=== PATIENT | male | born 1935 | race Two or more races ===

== ENCOUNTER → 2016-09-02 | Outpatient (CLI) | payer MEDICARE, BC ==
[2016-09-02 10:02] LABS: ALANINE AMINOTRANSFERASE 38 U/L (21-72); ALBUMIN 4.2 g/dL (3.5-5.0); ALKALINE PHOSPHATASE 70 U/L (38-126); ANION GAP 14 (5-19); ASPARTATE AMINO TRANSFERASE 17 U/L (17-59); BILIRUBIN,DIRECT 0.2 mg/dL (0.0-0.4); BILIRUBIN,TOTAL 1.3 mg/dL (0.2-1.3); BLOOD UREA NITROGEN 47 mg/dL (7-20); CARBON DIOXIDE 28 mmol/L (22-30); CHLORIDE 103 mmol/L (98-107); CHOLESTEROL 114.97 mg/dL (0-200); CREATININE RESULT 2.24 mg/dL (0.52-1.25); Direct HDL 29 mg/dL (>40); GLUCOSE 139 mg/dL (75-110); POTASSIUM 4.5 mmol/L (3.6-5.0); TOTAL PROTEIN 6.6 g/dL (6.3-8.2); TRIGLYCERIDES 139 mg/dL (<150)
[2016-09-02 10:13] LABS: DIRECT LDL 54 mg/dL (<100)
== END ==
LOC: OD 08:38
PROVIDERS: ATTEND Internal Medicine
DX: E78.4 Other hyperlipidemia (principal); I25.10 Atherosclerotic heart disease of native coronary artery without angina pectoris; I50.22 Chronic systolic (congestive) heart failure; Z79.899 Other long term (current) drug therapy; R06.02 Shortness of breath; I10 Essential (primary) hypertension; N19 Unspecified kidney failure; Z95.1 Presence of aortocoronary bypass graft; Z95.810 Presence of automatic (implantable) cardiac defibrillator; I25.2 Old myocardial infarction
CPT/HCPCS: 36415; 80053; 80061

== ENCOUNTER → 2016-12-17 | Outpatient (CLI) | payer MEDICARE, BC ==
[2016-12-17 09:37] LABS: HEMATOCRIT 45.9 % (37.9-51.0); HEMOGLOBIN 14.9 g/dL (13.5-17.0); HGB HCT DIFFERENCE -1.2; MEAN CORPUSCULAR HGB CONC 32.5 g/dL (32.0-36.0); MEAN CORPUSCULAR VOLUME 99 fl (80-97); RED BLOOD COUNT 4.66 10^6/uL (4.35-5.55); RED CELL DISTRIBUTION WIDTH 15.1 % (11.5-14.0)
[2016-12-17 09:45] LABS: APPEARANCE,URINE CLEAR; BILIRUBIN,URINE NEGATIVE (NEGATIVE); GLUCOSE, URINE NEGATIVE (NEGATIVE); KETONES,URINE NEGATIVE (NEGATIVE); LEUKOCYTE ESTERASE,URINE NEGATIVE (NEGATIVE); NITRITE,URINE NEGATIVE (NEGATIVE); PROTEIN,URINE NEGATIVE (NEGATIVE); URINE SPECIFIC GRAVITY 1.008; UROBILINOGEN,URINE NEGATIVE mg/dL (<2.0)
[2016-12-17 10:13] LABS: ANION GAP 14 (5-19); BLOOD UREA NITROGEN 65 mg/dL (7-20); CALCIUM 9.8 mg/dL (8.4-10.2); CARBON DIOXIDE 25 mmol/L (22-30); CHLORIDE 102 mmol/L (98-107); GLUCOSE 132 mg/dL (75-110); POTASSIUM 4.6 mmol/L (3.6-5.0); SODIUM 140.7 mmol/L (137-145)
== END ==
LOC: OD 08:21
PROVIDERS: ATTEND Internal Medicine Nephrology
DX: I12.9 Hypertensive chronic kidney disease with stage 1 through stage 4 chronic kidney disease, or unspecified chronic kidney disease (principal); N18.3 Chronic kidney disease, stage 3 (moderate); R80.9 Proteinuria, unspecified; E87.5 Hyperkalemia
CPT/HCPCS: 36415; 80048; 81001; 85027

== ENCOUNTER 2017-05-24 14:24 | Observation (INO) | payer MEDICARE, BC ==
[2017-05-24] MEDS ORDERED: ASPIRIN 81 MG TABLET, CHEWABLE PO ONE (14:26)
[2017-05-24] MEDS ORDERED: REGADENOSON INJ 0.4 MG/5 ML DISP.SYRIN IV ONE (14:38)
--- NOTE | 2017-05-24 14:48 | ER Document Report ---
ED General - General Stated Complaint: CHEST PAIN Time Seen by Provider: 05/24/17 14:30 Mode of Arrival: Medic Information source: Patient Notes: 81-year-old male history of triple bypass 20 years ago presents with complaints of chest pain. Patient notes he has nitroglycerin but has never used it in 20 years, today's pressure sensation midsternal nonradiating associated with shortness of breath, patient took nitroglycerin 3 and chest pain resolved. Patient seen by Dr. Brewer and Dr. Ortiz TRAVEL OUTSIDE OF THE [place] IN LAST 30 DAYS: No - HPI Onset: Just prior to arrival Onset/Duration: Sudden Quality of pain: Pressure Severity: Mild Pain Level: 1 Associated symptoms: Chest pain, Shortness of breath Exacerbated by: Denies Relieved by: Other Similar symptoms previously: No Recently seen / treated by doctor: No - Related Data Allergies/Adverse Reactions: No Known Allergies Allergy (Verified 05/24/17 14:58) Past Medical History - Social History Smoking Status: Never Smoker Cigarette use (# per day): No Chew tobacco use (# tins/day): No Smoking Education Provided: No Family History: Reviewed & Not Pertinent Review of Systems - Review of Systems Notes: REVIEW OF SYSTEMS: CONSTITUTIONAL : Denies fever, chills, or sweats. Denies recent illness. EENT: Denies eye, ear, throat, or mouth pain or symptoms. Denies nasal or sinus congestion or discharge. Denies throat, tongue, or mouth swelling or difficulty swallowing. CARDIOVASCULAR: admits to chest pain RESPIRATORY: Denies cough, cold, or chest congestion. Denies shortness of breath, difficulty breathing, or wheezing. GASTROINTESTINAL: Denies abdominal pain or distention. Denies nausea, vomiting , or diarrhea. Denies blood in vomitus, stools, or per rectum. Denies black, tarry stools. Denies constipation. GENITOURINARY: Denies difficulty urinating, painful urination, burning, frequency, blood in urine, or discharge. MUSCULOSKELETAL: Denies back or neck pain or stiffness. Denies joint pain or swelling. SKIN: Denies rash, lesions or sores. HEMATOLOGIC : Denies easy bruising or bleeding. LYMPHATIC: Denies swollen, enlarged glands. NEUROLOGICAL: Denies confusion or altered mental status. Denies passing out or loss of consciousness. Denies dizziness or lightheadedness. Denies headache. Denies weakness or paralysis or loss of use of either side. Denies problems with gait or speech. Denies sensory loss, numbness, or tingling. Denies seizures. PSYCHIATRIC: Denies anxiety or stress. Denies depression, suicidal ideation, or homicidal ideation. ALL OTHER SYSTEMS REVIEWED AND NEGATIVE. Dictation was performed using [facility] voice recognition software PHYSICAL EXAMINATION: GENERAL: Well-appearing, well-nourished and in no acute distress. HEAD: Atraumatic, normocephalic. EYES: Pupils equal round and reactive to light, extraocular movements intact, sclera anicteric, conjunctiva are normal. ENT: Nares patent, oropharynx clear without exudates. Moist mucous membranes. NECK: Normal range of motion, supple without lymphadenopathy LUNGS: Breath sounds clear to auscultation bilaterally and equal. No wheezes rales or rhonchi. HEART: Regular rate and rhythm without murmurs ABDOMEN: Soft, nontender, nondistended abdomen. No guarding, no rebound. No masses appreciated. Musculoskeletal: Normal range of motion, no pitting or edema. No cyanosis. NEUROLOGICAL: Cranial nerves grossly intact. Normal speech, normal gait. Normal sensory, motor exams PSYCH: Normal mood, normal affect. SKIN: midsternal chest surgical incision well healed Physical Exam - Vital signs Vitals: Pulse Ox 97 05/24/17 14:26 Course - Re-evaluation Re-evalutation: 05/24/17 16:03 Patient has been pain-free, he did receive 3 nitroglycerin and aspirin prior to arrival initially became hypotensive but was given fluids. Patient otherwise is stable had a negative workup in the ED I will observe in the hospital - Vital Signs Vital signs: Temp Pulse Resp BP Pulse Ox 15 125/59 L 97 05/24/17 16:00 05/24/17 16:00 05/24/17 16:00 - Laboratory Result Diagrams: 05/24/17 14:47 05/24/17 14:47 Laboratory results interpreted by me: 05/24/17 05/24/17 14:47 14:47 RBC 4.07 L Hgb 12.3 L Hct 37.1 L RDW 17.9 H Lymphocytes % 8.0 L Monocytes % 13.6 H Sodium 129.3 L Chloride 94 L BUN 24 H Creatinine 1.63 H Est GFR ( Amer) 49 L Est GFR (Non-Af Amer) 41 L Glucose 172 H AST 15 L Creatine Kinase < 20 L Total Protein 6.0 L Albumin 3.1 L - Diagnostic Test Radiology reviewed: Image reviewed, Reports reviewed - EKG Interpretation by Me EKG shows normal: Sinus rhythm, [place], Intervals, QRS Complexes Discharge - Discharge Clinical Impression: Chest pain Qualifiers: Chest pain type: unspecified Qualified Code(s): R07.9 - Chest pain, unspecified Coronary artery disease Qualifiers: Coronary Disease-Associated Artery/Lesion type: bypass graft [place] vs. transplanted heart: [place] heart Associated angina: with unspecified angina Qualified Code(s): I25.709 - Atherosclerosis of coronary artery bypass graft(s) , unspecified, with unspecified angina pectoris Condition: Stable Disposition: ADMITTED OBSERVATION Admitting Provider: Hospitalist Unit Admitted: Telemetry
[2017-05-24 15:00] LABS: ABSOLUTE BASOPHILS # (AUTO) 0.1 10^3/uL (0.0-0.2); ABSOLUTE EOSINOPHILS # (AUTO) 0.1 10^3/uL (0.0-0.6); ABSOLUTE LYMPHOCYTES (AUTO) 0.7 10^3/uL (0.5-4.7); ABSOLUTE MONOCYTES (AUTO) 1.2 10^3/uL (0.1-1.4); ABSOLUTE NEUT (AUTO) 6.9 10^3/uL (1.7-8.2); BASOPHILS % (AUTO) 0.9 % (0-2); EOSINOPHILS % (AUTO) 0.8 % (0-6); HEMATOCRIT 37.1 % (37.9-51.0); HEMOGLOBIN 12.3 g/dL (13.5-17.0); HGB HCT DIFFERENCE -0.2; MEAN CORPUSCULAR HEMOGLOBIN 30.3 pg (27.0-33.4); MEAN CORPUSCULAR HGB CONC 33.2 g/dL (32.0-36.0); MEAN CORPUSCULAR VOLUME 91 fl (80-97); MONOCYTES % (AUTO) 13.6 % (3-13); RED BLOOD COUNT 4.07 10^6/uL (4.35-5.55); RED CELL DISTRIBUTION WIDTH 17.9 % (11.5-14.0); SEGMENTED NEUTROPHILS % (AUTO) 76.7 % (42-78)
[2017-05-24 15:22] LABS: ALANINE AMINOTRANSFERASE 26 U/L (21-72); ALBUMIN 3.1 g/dL (3.5-5.0); ALKALINE PHOSPHATASE 62 U/L (38-126); ANION GAP 9 (5-19); ASPARTATE AMINO TRANSFERASE 15 U/L (17-59); BILIRUBIN,DIRECT 0.3 mg/dL (0.0-0.4); BILIRUBIN,TOTAL 1.1 mg/dL (0.2-1.3); BLOOD UREA NITROGEN 24 mg/dL (7-20); CALCIUM 9.1 mg/dL (8.4-10.2); CARBON DIOXIDE 26 mmol/L (22-30); CHLORIDE 94 mmol/L (98-107); CREATININE RESULT 1.63 mg/dL (0.52-1.25); GLUCOSE 172 mg/dL (75-110); POTASSIUM 4.5 mmol/L (3.6-5.0); SODIUM 129.3 mmol/L (137-145)
[2017-05-24 15:27] LABS: CREATINE KINASE < 20 U/L (55-170)
[2017-05-24 15:31] LABS: CREATINE KINASE MB 0.54 ng/mL (<4.55); TROPONIN I 0.014 ng/mL
--- NOTE | 2017-05-24 15:31 | RADIOLOGY REPORT (SQ) ---
EXAM DESCRIPTION: CHEST SINGLE VIEW COMPLETED DATE/TIME: 05/24/2017 3:17 pm REASON FOR STUDY: bed 18 cp COMPARISON: None. NUMBER OF VIEWS: One view. TECHNIQUE: Single frontal radiographic view of the chest acquired. LIMITATIONS: None. FINDINGS: LUNGS AND PLEURA: Mild elevation right hemidiaphragm with basilar subsegmental atelectasis . Lungs otherwise clear. No pneumothorax or significant pleural fluid or evidence of failure. MEDIASTINUM AND HILAR STRUCTURES: Uncoiled mildly ectatic aorta. No suspicious contour abnormalities . Previous surgery, presumed CABG. Numerous associated metallic artifacts diffusely. This includes numerous broken sternal wires. HEART AND VASCULAR STRUCTURES: Relatively normal heart size without failure. BONES: No acute findings. HARDWARE: Left pacer. OTHER: No other significant finding. IMPRESSION: No acute cardiopulmonary disease suggested. TECHNICAL DOCUMENTATION: JOB ID: [id number] [employer]- All Rights Reserved
[2017-05-24] MEDS ORDERED: ACETAMINOPHEN 325 MG TABLET PO PRN ×2 (17:48→18:14)
[2017-05-24] MEDS ORDERED: TEMAZEPAM 7.5 MG CAPSULE PO PRN (17:48)
[2017-05-24] MEDS ORDERED: ONDANSETRON HCL INJ/PF 4 MG/2 ML SDV IV PRN (17:48)
[2017-05-24] MEDS ORDERED: ONDANSETRON 4 MG TAB.RAPDIS PO PRN (17:48)
[2017-05-24] MEDS ORDERED: (PENDING PHARMACY ID) (Tramadol Hcl/Acetaminophen [Tramadol-Acetaminophn 37.5-325] 1 TAB) PO PRN (18:05)
[2017-05-24] MEDS ORDERED: NITROGLYCERIN 0.4 MG/TAB 25 TAB/BOTTLE SL PRN (18:05)
[2017-05-24] MEDS ORDERED: (PENDING PHARMACY ID) (Diclofenac Sodium [Voltaren] 1 APPLIC) TP PRN (18:05)
[2017-05-24] MEDS ORDERED: TRAMADOL HCL 50 MG TABLET PO PRN (18:12)
--- NOTE | 2017-05-24 18:26 | PDOC H&P ---
History of Present Illness Admission Date/PCP: FRANCISCO ALVARADO MD May 24 2017 History of Present Illness: LUDMILA HERMOSILLO is an 81-year-old gentleman with past medical history of CABG 3; 20 years ago He developed some pressure-like chest pain earlier today and received 3 sublingual nitroglycerin and aspirin prior to arrival. That relieved his chest pain. In the emergency room he was initially hypotensive with blood pressure 90 /40 which improved 201/67 with a 500 cc fluid bolus. EKG shows a sensed V paced rhythm CK and troponin were negative. Currently chest pain free. Medical history: AICD Coronary artery disease CKD Diabetes, diet controlled Hypertension Hyperlipidemia Gout Congestive heart failure Arthritis, possible rheumatoid arthritis Trade Manager: Dr. Ortiz EP cardiology: Dr. Watters Past Medical History Cardiac Medical History: Reports: Congestive Heart Failure, Myocardial Infarction - 20 years ago, Hyperlipidema, Hypertension Musculoskeltal Medical History: Reports: Arthritis Past Surgical History Past Surgical History: Reports: Coronary Artery Bypass Graft Social History Smoking Status: Never Smoker Frequency of Alcohol Use: None Hx Recreational Drug Use: No Family History Family History: Hyperlipidemia Parental Family History Reviewed: Yes Children Family History Reviewed: Yes Sibling(s) Family History Reviewed.: Yes Medication/Allergy Home Medications: Allopurinol [Zyloprim 100 mg Tablet] 100 mg PO Q12 05/24/17 Atenolol [Tenormin 100 mg Tablet] 100 mg PO Q12 05/24/17 Atorvastatin Calcium [Lipitor 40 mg Tablet] 40 mg PO QHS 05/24/17 Colchicine [Colcrys 0.6 mg Tablet] 0.6 mg PO DAILY 05/24/17 Diclofenac Sodium [Voltaren] 1 applic TP .ASDIR PRN 05/24/17 Digoxin [Digox] 125 mcg PO DAILY 05/24/17 Furosemide [Lasix 20 mg Tablet] 20 mg PO QAM 05/24/17 Nitroglycerin [Nitrostat 0.4 mg (1/150 Gr) Tabs 25/Bottle] 1 tab SL Q5MP PRN Sotalol HCl [Betapace 80 mg Tablet] 80 mg PO Q12 05/24/17 Spironolactone [Aldactone 25 mg Tablet] 25 mg PO .ASDIR PRN 05/24/17 Tramadol HCl/Acetaminophen [Tramadol-Acetaminophn 37.5-325] 1 tab PO Q12HP PRN 05/24/17 Valsartan [Diovan 160 mg Tablet] 160 mg PO DAILY 05/24/17 Allergies/Adverse Reactions: No Known Allergies Allergy (Verified 05/24/17 14:58) Review of Systems Constitutional: ABSENT: as per HPI, anorexia, chills, fatigue, fever(s), headache(s), night sweats, weakness, weight gain, weight loss, other Eyes: ABSENT: as per HPI, visual disturbances, other Ears: ABSENT: as per HPI, hearing changes, other Nose, Mouth, and Throat: ABSENT: as per HPI, headache(s), mouth pain, sore throat, vertigo, other Breasts: ABSENT: as per HPI, other Cardiovascular: PRESENT: chest pain Gastrointestinal: ABSENT: abdominal pain, constipation, diarrhea, hematemesis, hematochezia, nausea, vomiting Genitourinary: ABSENT: dysuria, hematuria Musculoskeletal: PRESENT: joint swelling Integumentary: ABSENT: as per HPI, diaphoresis, erythema, lesions, pruritus, rash, wounds, other Neurological: ABSENT: as per HPI, abnormal gait, abnormal movements, abnormal speech, confusion, convulsions, dizziness, focal weakness, frequent falls, lack of coordination, memory loss, numbness, paresthesias, restless legs, syncope, tingling, tremor(s), vertigo, weakness, other Psychiatric: ABSENT: as per HPI, anxiety, depression, hallucinations, homidical ideation, suicidal ideation, other Endocrine: ABSENT: as per HPI, cold intolerance, flushing, heat intolerance, menstrual abnormalities, polydipsia, polyphagia, polyuria, other Physical Exam Vital Signs: Temp Pulse Resp BP Pulse Ox 15 125/59 L 97 05/24/17 16:00 05/24/17 16:00 05/24/17 16:00 Intake & Output 05/23/17 05/24/17 05/25/17 06:59 06:59 06:59 Weight 77.2 kg Additional comments: Middle-aged gentleman sitting up in bed not in acute distress HEENT: Normal extraocular muscle movements no conjunctival discharge, pallor, normal external ears and nose Neck is supple no JVD no masses trachea is midline no carotid bruits heard Lungs: Clear to auscultation bilaterally, normal respiratory effort Cardiac: S1-S2 regular, no peripheral edema no cyanosis no calf tenderness, apical impulse is displaced laterally and inferiorly Abdomen: Soft, no focal tenderness normal bowel sounds Chest wall: No tenderness or deformity Skin: Warm and dry Neurologic: Awake and alert oriented 3 no facial droop is clear and fluent Motor strength 5 out of 5 bilateral upper and lower extremities next Results Laboratory Results: 05/24/17 14:47 05/24/17 14:47 05/24/17 05/24/17 14:47 14:47 WBC 9.0 RBC 4.07 L Hgb 12.3 L Hct 37.1 L MCV 91 MCH 30.3 MCHC 33.2 RDW 17.9 H Plt Count 238 Seg Neutrophils % 76.7 Lymphocytes % 8.0 L Monocytes % 13.6 H Eosinophils % 0.8 Basophils % 0.9 Absolute Neutrophils 6.9 Absolute Lymphocytes 0.7 Absolute Monocytes 1.2 Absolute Eosinophils 0.1 Absolute Basophils 0.1 Sodium 129.3 L Potassium 4.5 Chloride 94 L Carbon Dioxide 26 Anion Gap 9 BUN 24 H Creatinine 1.63 H Est GFR ( Amer) 49 L Est GFR (Non-Af Amer) 41 L Glucose 172 H Calcium 9.1 Total Bilirubin 1.1 AST 15 L ALT 26 Alkaline Phosphatase 62 Total Protein 6.0 L Albumin 3.1 L 05/24/17 05/24/17 14:47 14:47 Creatine Kinase < 20 L CK-MB (CK-2) 0.54 Troponin I 0.014 Impressions: Chest X-Ray 05/24/17 14:26 IMPRESSION: No acute cardiopulmonary disease suggested. Assessment & Plan - Diagnosis (1) Chest pain Qualifiers: Chest pain type: unspecified Qualified Code(s): R07.9 - Chest pain, unspecified Is this a current diagnosis for this admission?: Yes (2) Hypertension Is this a current diagnosis for this admission?: Yes (3) Coronary artery disease Qualifiers: Coronary Disease-Associated Artery/Lesion type: bypass graft [place] vs. transplanted heart: [place] heart Associated angina: with unspecified angina Qualified Code(s): I25.709 - Atherosclerosis of coronary artery bypass graft(s) , unspecified, with unspecified angina pectoris Is this a current diagnosis for this admission?: Yes (4) Hyperlipidemia Is this a current diagnosis for this admission?: Yes (5) Diabetes Qualifiers: Diabetes mellitus type: type 2 Diabetes mellitus complication status: with unspecified complications Is this a current diagnosis for this admission?: Yes (6) Gout Is this a current diagnosis for this admission?: Yes (7) Arthritis Is this a current diagnosis for this admission?: Yes (8) Chronic kidney disease Qualifiers: Chronic kidney disease stage: stage 3 (moderate) Qualified Code(s): N18.3 - Chronic kidney disease, stage 3 (moderate) Is this a current diagnosis for this admission?: Yes - Time Time Spent: 50 to 70 Minutes - Plan Summary Plan Summary: We will bring him in under observation status. Monitor on telemetry. Serial cardiac enzymes. Nitroglycerin as needed Continue aspirin Stress test in the morning if cardiac enzymes remain negative
--- NOTE | 2017-05-24 23:07 | EKG REPORT ---
SEVERITY:- ABNORMAL ECG - ATRIAL-SENSED VENTRICULAR-PACED RHYTHM : Confirmed by: Brook Martin 24-May-2017 23:06:55
[2017-05-24] MEDS ORDERED: ATENOLOL 50 MG TABLET ONE (23:29)
[2017-05-24] MEDS ORDERED: SOTALOL HCL 80 MG TABLET ONE (23:30)
[2017-05-24] MEDS: SOTALOL HCL 80 MG TABLET PO SCH (23:59)
[2017-05-25] MEDS: ALLOPURINOL 100 MG TABLET PO SCH ×3 (00:01→21:16)
[2017-05-25] MEDS: ATENOLOL 50 MG TABLET PO SCH ×3 (00:01→20:36)
[2017-05-25] MEDS ORDERED: ATENOLOL 50 MG TABLET ONE (00:20)
[2017-05-25 01:17] LABS: CREATINE KINASE MB 0.51 ng/mL (<4.55); TROPONIN I 0.02 ng/mL
[2017-05-25] MEDS: LANSOPRAZOLE 15 MG TAB.RAP.DR PO SCH (06:03)
[2017-05-25 07:07] LABS: ANION GAP 10 (5-19); BLOOD UREA NITROGEN 30 mg/dL (7-20); CALCIUM 9.2 mg/dL (8.4-10.2); CARBON DIOXIDE 24 mmol/L (22-30); CHLORIDE 98 mmol/L (98-107); CHOLESTEROL 97.64 mg/dL (0-200); DIGOXIN 0.52 ng/mL (0.8-2.0); Direct HDL 28 mg/dL (>40); GLUCOSE 114 mg/dL (75-110); PHOSPHORUS 3.6 mg/dL (2.5-4.5); POTASSIUM 4.5 mmol/L (3.6-5.0); SODIUM 131.6 mmol/L (137-145); TRIGLYCERIDES 104 mg/dL (<150)
[2017-05-25 07:17] LABS: DIRECT LDL 45 mg/dL (<100)
[2017-05-25 07:18] LABS: CREATINE KINASE MB 0.52 ng/mL (<4.55); TROPONIN I 0.02 ng/mL
[2017-05-25] MEDS ORDERED: ASPIRIN 325 MG TABLET, ENT COATED PO SCH (10:00)
[2017-05-25] MEDS: ENOXAPARIN SODIUM INJ 40 MG/0.4 ML DISP.SYRIN SUBCUT SCH (10:08)
[2017-05-25] MEDS: DIGOXIN 0.125 MG TABLET PO SCH (10:09)
[2017-05-25] MEDS: SOTALOL HCL 80 MG TABLET PO SCH ×2 (10:10→20:36)
--- NOTE | 2017-05-25 11:45 | EKG REPORT ---
SEVERITY:- ABNORMAL ECG - ATRIAL-SENSED VENTRICULAR-PACED COMPLEXES : Confirmed by: Brook Martin 25-May-2017 11:45:41
--- NOTE | 2017-05-25 12:57 | PDOC PROGRESS REPORT ---
Subjective Progress Note for:: 05/25/17 Subjective:: 81-year-old gentleman with history of coronary artery disease status post CABG in the past, hypertension, hyperlipidemia, diet-controlled diabetes, AICD. Presented to the hospital with an episode of substernal chest pain lasting several hours. Chest pain resolved with aspirin and nitroglycerin. He is currently awaiting a stress test. 2 sets of cardiac enzymes have been negative. He has had no recurrence of chest pain. Reason For Visit: CHEST PAIN IN A PATIENT with CAD Physical Exam Vital Signs: Temp Pulse Resp BP Pulse Ox 97.5 F 66 16 134/62 H 100 05/25/17 03:50 05/25/17 07:00 05/25/17 03:50 05/25/17 03:50 05/25/17 03:50 Intake & Output 05/24/17 05/25/17 05/26/17 06:59 06:59 06:59 Intake Total 480 Output Total 600 Balance -120 Weight 73.5 kg Additional comments: Elderly gentleman lying comfortably in bed not in acute distress Lungs: Clear to auscultation bilaterally normal respiratory effort Cardiac: S1-2 heard, no murmurs heard no peripheral edema no cyanosis no calf tenderness Chest wall: No deformity no tenderness Abdomen: Soft, no focal tenderness normal bowel sounds Skin: Warm and dry Results Laboratory Results: 05/25/17 06:40 05/25/17 05/25/17 06:40 06:40 Sodium 131.6 L Potassium 4.5 Chloride 98 Carbon Dioxide 24 Anion Gap 10 BUN 30 H Creatinine 1.80 H Est GFR ( Amer) 44 L Est GFR (Non-Af Amer) 36 L Glucose 114 H Calcium 9.2 Phosphorus 3.6 Magnesium 2.0 Triglycerides 104 Cholesterol 97.64 LDL Cholesterol Direct 45 VLDL Cholesterol 21.0 HDL Cholesterol 28 L TSH 1.68 05/24/17 05/25/17 05/25/17 18:42 00:45 06:40 CK-MB (CK-2) 0.51 0.52 Troponin I 0.029 0.020 0.020 Impressions: Chest X-Ray 05/24/17 14:26 IMPRESSION: No acute cardiopulmonary disease suggested. Assessment & Plan - Diagnosis (1) Chest pain Qualifiers: Chest pain type: unspecified Qualified Code(s): R07.9 - Chest pain, unspecified Is this a current diagnosis for this admission?: Yes Plan: Cardiac enzymes negative. EKG shows a paced V sensed rhythm. Plan for stress test. To the outpatient medications. Beta-blockers will be held. (2) Hypertension Is this a current diagnosis for this admission?: Yes Plan: Continue current medications. (3) Coronary artery disease Qualifiers: Coronary Disease-Associated Artery/Lesion type: bypass graft [place] vs. transplanted heart: [place] heart Associated angina: with unspecified angina Qualified Code(s): I25.709 - Atherosclerosis of coronary artery bypass graft(s) , unspecified, with unspecified angina pectoris Is this a current diagnosis for this admission?: Yes (4) Hyperlipidemia Is this a current diagnosis for this admission?: Yes Plan: Continue statin. (5) Diabetes Qualifiers: Diabetes mellitus type: type 2 Diabetes mellitus complication status: with unspecified complications Is this a current diagnosis for this admission?: Yes Plan: Diet controlled. (6) Gout Is this a current diagnosis for this admission?: Yes Plan: Allopurinol. (7) Arthritis Is this a current diagnosis for this admission?: Yes (8) Chronic kidney disease Qualifiers: Chronic kidney disease stage: stage 3 (moderate) Qualified Code(s): N18.3 - Chronic kidney disease, stage 3 (moderate) Is this a current diagnosis for this admission?: Yes - Time Time Spent with patient: 15-24 minutes
[2017-05-25] MEDS: ATORVASTATIN CALCIUM 40 MG TABLET PO SCH ×2 (21:16)
[2017-05-26] MEDS: LANSOPRAZOLE 15 MG TAB.RAP.DR PO SCH (05:03)
[2017-05-26] MEDS ORDERED: ONDANSETRON 4 MG TAB.RAPDIS PO PRN (09:30)
[2017-05-26] MEDS ORDERED: ONDANSETRON HCL INJ/PF 4 MG/2 ML SDV IV PRN (09:30)
[2017-05-26] MEDS ORDERED: ASPIRIN 325 MG TABLET, ENT COATED PO SCH ×2 (10:00→22:00)
[2017-05-26] MEDS: SOTALOL HCL 80 MG TABLET PO SCH ×2 (11:09→21:49)
[2017-05-26] MEDS: ATENOLOL 50 MG TABLET PO SCH ×2 (11:10→21:49)
[2017-05-26] MEDS: ALLOPURINOL 100 MG TABLET PO SCH ×2 (11:10→21:52)
[2017-05-26] MEDS: DIGOXIN 0.125 MG TABLET PO SCH (11:10)
[2017-05-26] MEDS: ENOXAPARIN SODIUM INJ 40 MG/0.4 ML DISP.SYRIN SUBCUT SCH (11:14)
[2017-05-26] MEDS ORDERED: ACETAMINOPHEN 325 MG TABLET PO PRN (11:18)
[2017-05-26] MEDS ORDERED: TEMAZEPAM 7.5 MG CAPSULE PO PRN (11:30)
[2017-05-26] MEDS ORDERED: PREDNISONE 20 MG TABLET PO ONE (13:30)
--- NOTE | 2017-05-26 14:25 | DRAGON STRESS TEST REPORT ---
Intravenous Lexiscan Cardiolite stress test using single photon emmision computerized tomography. Date of procedure: 05/26/2017. Ordering Provider: Dr. Osorio. Patient's status: In Patient Indication: Chest pain, in a patient with coronary artery disease old [place] history of coronary artery bypass graft surgery, and ischemic cardiomyopathy. Coronary risk factors: Age, diabetes, hypertension, and dyslipidemia. Note that the patient has an AICD. Resting EKG: Atrial tracking and ventricular paced rhythm Stress EKG: Nondiagnostic of ischemia, due to paced rhythm. The patient had no chest pain or discomfort, and there were no arrhythmias seen. Reason for termination: Protocol. Conclusions: Normal EKG and hemodynamic response to IV Lexiscan. Nuclear data: At rest the patient was given 16.95 millicuries of technetium 99m sestamibi injected intravenously. As per protocol rest non gated SPECT images were obtained. Subsequently the patient was given intravenous Lexiscan at a dose of 0.4 mg in 5 mL intravenously, followed by flush with normal saline. Subsequently the stress dose of 33.9 millicuries of technetium 99m sestamibi was injected intravenously. As per protocol stress gated images were obtained. Nuclear interpretation: Review of images showed that there was liver and bowel contamination artifact of the inferior wall. In spite of this there was absent perfusion of the left ventricular apex in both rest and stress images with no motion contraction or thickening in this area. There is a perfusion defect involving the lateral wall and the inferior wall in both rest and stress images with very much decreased motion contraction and thickening. The rest of the segments of the myocardium had normal perfusion at rest, and normal perfusion post stress with IV Lexiscan. The rest of the segments of the myocardium had normal thickening , but moderate to severely decreased motion contraction by gated study. The left ventricle is dilated. T. I D. ratio was normal at 1.09. Computer read rest, and stress left ventricular ejection fraction were 31 %, and 31 %, respectively. Conclusion: 1. There is no scintigraphic evidence of Lexiscan induced myocardial ischemia. 2. There is scintigraphic evidence of a large myocardial infarction/scar involving the left ventricular apex, the inferior wall and the lateral wall.. 3. There is evidence of ischemic cardiomyopathy, with a dilated ventricle, with severely reduced LV ejection fraction. Recommendations: 1. Aggressive treatment of coronary artery disease and cardiomyopathy as is being done now. 2. Aggressive risk factor modification, and treating the underlying co- morbidities. MTDD
--- NOTE | 2017-05-26 19:19 | PDOC PROGRESS REPORT ---
Subjective Progress Note for:: 05/26/17 Subjective:: 81-year-old gentleman with history of coronary artery disease status post CABG in the past, hypertension, hyperlipidemia, diet-controlled diabetes, AICD. Presented to the hospital with an episode of substernal chest pain lasting several hours. Chest pain resolved with aspirin and nitroglycerin. Stress test done today showed no reversible ischemia. He has developed bilateral ankle pain and swelling. He was recently being worked up as an outpatient for arthritis involving multiple joints including the small joints of his hands by his outpatient physician. He is supposed to establish care with the insurance claim representative as an outpatient. He does have a history of gout. Reason For Visit: CHEST PAIN IN A PATIENT IS CAD Physical Exam Vital Signs: Temp Pulse Resp BP Pulse Ox 97.2 F 61 18 117/59 L 97 05/26/17 15:26 05/26/17 15:26 05/26/17 15:26 05/26/17 15:26 05/26/17 15:26 Intake & Output 05/25/17 05/26/17 05/27/17 06:59 06:59 06:59 Intake Total 480 730 620 Output Total 600 675 350 Balance -120 55 270 Weight 73.5 kg 73.5 kg Additional comments: Elderly gentleman lying in bed not in acute distress Lungs: Clear to auscultation bilaterally normal respiratory effort Cardiac: S1-S2 regular no murmurs heard no calf tenderness no cyanosis Abdomen: Soft, no focal tenderness normal bowel sounds Extremities: He has swelling and tenderness of bilateral ankle joints with decreased range of motion secondary to pain. Results Laboratory Results: 05/25/17 06:40 05/24/17 05/25/17 05/25/17 18:42 00:45 06:40 CK-MB (CK-2) 0.51 0.52 Troponin I 0.029 0.020 0.020 Impressions: Chest X-Ray 05/24/17 14:26 IMPRESSION: No acute cardiopulmonary disease suggested. Assessment & Plan - Diagnosis (1) Chest pain Qualifiers: Chest pain type: unspecified Qualified Code(s): R07.9 - Chest pain, unspecified Is this a current diagnosis for this admission?: Yes Plan: Stress test unremarkable. Continue outpatient medications. (2) Hypertension Is this a current diagnosis for this admission?: Yes (3) Coronary artery disease Qualifiers: Coronary Disease-Associated Artery/Lesion type: bypass graft [place] vs. transplanted heart: [place] heart Associated angina: with unspecified angina Qualified Code(s): I25.709 - Atherosclerosis of coronary artery bypass graft(s) , unspecified, with unspecified angina pectoris Is this a current diagnosis for this admission?: Yes (4) Hyperlipidemia Is this a current diagnosis for this admission?: Yes (5) Diabetes Qualifiers: Diabetes mellitus type: type 2 Diabetes mellitus complication status: with unspecified complications Is this a current diagnosis for this admission?: Yes (6) Gout Is this a current diagnosis for this admission?: Yes (7) Arthritis Is this a current diagnosis for this admission?: Yes Plan: Start him on a prednisone taper. (8) Chronic kidney disease Qualifiers: Chronic kidney disease stage: stage 3 (moderate) Qualified Code(s): N18.3 - Chronic kidney disease, stage 3 (moderate) Is this a current diagnosis for this admission?: Yes - Time Time Spent with patient: 25-34 minutes - Plan Summary Plan Summary: Hopefully discharge home within the next 24-48 hours once his ankle pain improves and he can ambulate.
[2017-05-26] MEDS: ATORVASTATIN CALCIUM 40 MG TABLET PO SCH (21:52)
[2017-05-27] MEDS ORDERED: LANSOPRAZOLE 15 MG TAB.RAP.DR PO SCH (06:00)
[2017-05-27] MEDS ORDERED: PREDNISONE 20 MG TABLET PO SCH (10:00)
[2017-05-27] MEDS: ALLOPURINOL 100 MG TABLET PO SCH (11:00)
[2017-05-27] MEDS: ATENOLOL 50 MG TABLET PO SCH (11:00)
[2017-05-27] MEDS: SOTALOL HCL 80 MG TABLET PO SCH (11:00)
[2017-05-27] MEDS: DIGOXIN 0.125 MG TABLET PO SCH (11:01)
[2017-05-27] MEDS: ENOXAPARIN SODIUM INJ 40 MG/0.4 ML DISP.SYRIN SUBCUT SCH (11:01)
[2017-05-27 13:38] VITALS: BP 104/54
--- NOTE | 2017-05-27 14:50 | PDOC DISCHARGE SUMMARY ---
General - Admit/Disc Date/PCP Admission Date/Primary Care Provider: 05/24/17 16:17 FRANCISCO ALVARADO MD Discharge Date: 05/27/17 - Discharge Diagnosis (1) Chest pain Is this a current diagnosis for this admission?: Yes Summary: Normal Cardiolite stress test. Most likely secondary to acid reflux. (2) Gout Is this a current diagnosis for this admission?: Yes Summary: Treated with a prednisone taper. (3) Chronic kidney disease Is this a current diagnosis for this admission?: Yes (4) Coronary artery disease Is this a current diagnosis for this admission?: Yes (5) Diabetes Is this a current diagnosis for this admission?: Yes (6) Hyperlipidemia Is this a current diagnosis for this admission?: Yes (7) Hypertension Is this a current diagnosis for this admission?: Yes - Additional Information Resuscitation Status: Full Code Discharge Diet: Cardiac Discharge Activity: Activity As Tolerated Prescriptions: Prednisone [Deltasone 20 mg Tablet] 40 mg PO DAILY 3 Days tablet Home Medications: Allopurinol [Zyloprim 100 mg Tablet] 100 mg PO Q12 05/24/17 Atenolol [Tenormin 100 mg Tablet] 100 mg PO Q12 05/24/17 Atorvastatin Calcium [Lipitor 40 mg Tablet] 40 mg PO QHS 05/24/17 Colchicine [Colcrys 0.6 mg Tablet] 0.6 mg PO DAILY 05/24/17 Diclofenac Sodium [Voltaren] 1 applic TP .ASDIR PRN 05/24/17 Digoxin [Digox] 125 mcg PO DAILY 05/24/17 Furosemide [Lasix 20 mg Tablet] 20 mg PO QAM 05/24/17 Nitroglycerin [Nitrostat 0.4 mg (1/150 Gr) Tabs 25/Bottle] 1 tab SL Q5MP PRN Sotalol HCl [Betapace 80 mg Tablet] 80 mg PO Q12 05/24/17 Spironolactone [Aldactone 25 mg Tablet] 25 mg PO .ASDIR PRN 05/24/17 Tramadol HCl/Acetaminophen [Tramadol-Acetaminophn 37.5-325] 1 tab PO Q12HP PRN 05/24/17 Valsartan [Diovan 160 mg Tablet] 160 mg PO DAILY 05/24/17 [place]-3 Fatty Acids/Fish Oil [Fish Oil 1,000 mg Capsule] 1 cap PO DAILY Aspirin [Ecotrin 325 mg EC Tablet] 325 mg PO QHS tabec 05/27/17 Prednisone [Deltasone 20 mg Tablet] 40 mg PO DAILY 3 Days tablet 05/27/17 History of Present Illness History of Present Illness: LUDMILA HERMOSILLO is a 81 year old male who has a history of coronary artery disease who presented with some atypical chest pain. The patient is admitted for further monitoring. He did report that it was improved with nitroglycerin and did have some sour brash taste. Hospital Course Hospital Course: 81-year-old gentleman with a known history of coronary artery disease who presented with chest pain that was relieved with nitroglycerin. Patient was monitored on telemetry and had no significant cardiac arrhythmias. He had negative troponins and then underwent a Cardiolite stress test. There is no evidence for any reversible ischemia on stress test. Patient was given to be discharged home however he was unable to stand on his feet because of bilateral ankle pain along with joint effusions bilaterally consistent with an acute gouty flare. Patient was given prednisone and was watched for another night and on the day of discharge was able to ambulate with minimal pain. He also has had resolution of the pain. Patient will be sent with prednisone for the next 4 days. The patient's chest pain most likely secondary to gastroesophageal reflux disease. 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 Physical Exam Vital Signs: Temp Pulse Resp BP Pulse Ox 97.6 F 62 17 136/60 H 97 05/27/17 12:56 05/27/17 12:56 05/27/17 12:56 05/27/17 12:56 05/27/17 12:56 Intake & Output 05/26/17 05/27/17 05/28/17 06:59 06:59 06:59 Intake Total 730 860 Output Total 675 650 Balance 55 210 Weight 73.5 kg 73.5 kg General appearance: PRESENT: no acute distress Eye exam: PRESENT: conjunctiva pink. ABSENT: scleral icterus Mouth exam: PRESENT: moist, tongue midline Neck exam: ABSENT: JVD Respiratory exam: PRESENT: clear to auscultation juliane. ABSENT: rales, rhonchi, wheezes Cardiovascular exam: PRESENT: RRR. ABSENT: diastolic murmur, rubs, systolic murmur GI/Abdominal exam: PRESENT: normal bowel sounds, soft. ABSENT: distended, guarding, mass, organolmegaly, rebound, tenderness Extremities exam: ABSENT: calf tenderness, clubbing, pedal edema Neurological exam: PRESENT: alert, awake, oriented to person, oriented to place , oriented to time, oriented to situation, CN II-XII grossly intact. ABSENT: motor sensory deficit Psychiatric exam: PRESENT: appropriate affect Skin exam: PRESENT: dry, intact, warm. ABSENT: cyanosis, rash Results Laboratory Results: 05/25/17 06:40 05/24/17 05/25/17 05/25/17 18:42 00:45 06:40 CK-MB (CK-2) 0.51 0.52 Troponin I 0.029 0.020 0.020 Impressions: Chest X-Ray 05/24/17 14:26 IMPRESSION: No acute cardiopulmonary disease suggested. Qualifiers PATEINT BEING DISCHARGED WITH ANY OF THE FOLLOWING DIAGNOSIS?: No Plan Discharge Plan: Patient is discharged home. Will follow up with primary care in 2 weeks. Time Spent: Less than 30 Minutes
== END 2017-05-27 13:40 | disposition home or self-care (01) ==
LOC: ER 14:24 → EH 16:17 → 4N 18:04
PROVIDERS: ADMIT Hospitalist; ATTEND Hospitalist
DX: R07.89 Other chest pain (principal); M10.9 Gout, unspecified; I13.0 Hypertensive heart and chronic kidney disease with heart failure and stage 1 through stage 4 chronic kidney disease, or unspecified chronic kidney disease; I50.9 Heart failure, unspecified; E11.22 Type 2 diabetes mellitus with diabetic chronic kidney disease; N18.3 Chronic kidney disease, stage 3 (moderate); I25.709 Atherosclerosis of coronary artery bypass graft(s), unspecified, with unspecified angina pectoris; E78.5 Hyperlipidemia, unspecified; I95.9 Hypotension, unspecified; M19.90 Unspecified osteoarthritis, unspecified site; R43.8 Other disturbances of smell and taste; I25.2 Old myocardial infarction; Z79.82 Long term (current) use of aspirin; Z79.899 Other long term (current) drug therapy; Z95.1 Presence of aortocoronary bypass graft; Z95.810 Presence of automatic (implantable) cardiac defibrillator
CPT/HCPCS: 93005 ×2; 99285; 36415 ×2; 82553 ×2; 82550; 80162; 83735; 84100; 84443; 85025; 80048; 80053; 84484 ×2; 83036; 80061; 93017; 71010; 78452; 93010 ×2; A9500; A9270 ×16; J2785; J1650 ×2; J3490 ×2; Q9969; J7512

== ENCOUNTER → 2017-06-16 | Outpatient (CLI) | payer MEDICARE, BC ==
[2017-06-16 13:38] LABS: ABSOLUTE BASOPHILS # (AUTO) 0.2 10^3/uL (0.0-0.2); ABSOLUTE EOSINOPHILS # (AUTO) 0.2 10^3/uL (0.0-0.6); ABSOLUTE LYMPHOCYTES (AUTO) 1.2 10^3/uL (0.5-4.7); ABSOLUTE MONOCYTES (AUTO) 1.6 10^3/uL (0.1-1.4); BASOPHILS % (AUTO) 2.1 % (0-2); EOSINOPHILS % (AUTO) 1.5 % (0-6); HEMATOCRIT 36.5 % (37.9-51.0); HEMOGLOBIN 11.8 g/dL (13.5-17.0); LYMPHOCYTES % (AUTO) 10.3 % (13-45); MEAN CORPUSCULAR HEMOGLOBIN 29.2 pg (27.0-33.4); MEAN CORPUSCULAR HGB CONC 32.5 g/dL (32.0-36.0); MEAN CORPUSCULAR VOLUME 90 fl (80-97); MONOCYTES % (AUTO) 14.4 % (3-13); PLATELET COUNT 484 10^3/uL (150-450); RED BLOOD COUNT 4.05 10^6/uL (4.35-5.55); RED CELL DISTRIBUTION WIDTH 18.2 % (11.5-14.0); SEGMENTED NEUTROPHILS % (AUTO) 71.7 % (42-78); TOTAL CELLS COUNTED % (AUTO) 100 %; WHITE BLOOD COUNT 11.2 10^3/uL (4.0-10.5)
[2017-06-16 13:57] LABS: ALANINE AMINOTRANSFERASE 22 U/L (21-72); ALBUMIN 3.2 g/dL (3.5-5.0); ALKALINE PHOSPHATASE 73 U/L (38-126); ANION GAP 10 (5-19); ASPARTATE AMINO TRANSFERASE 15 U/L (17-59); BILIRUBIN,DIRECT 0.3 mg/dL (0.0-0.4); BILIRUBIN,TOTAL 0.8 mg/dL (0.2-1.3); BLOOD UREA NITROGEN 31 mg/dL (7-20); CALCIUM 10.3 mg/dL (8.4-10.2); CARBON DIOXIDE 27 mmol/L (22-30); CHLORIDE 98 mmol/L (98-107); GLUCOSE 103 mg/dL (75-110); POTASSIUM 5.7 mmol/L (3.6-5.0); SODIUM 134.7 mmol/L (137-145); TOTAL PROTEIN 5.8 g/dL (6.3-8.2); URIC ACID 6.3 mg/dL (3.5-8.5)
[2017-06-17 09:26] LABS: CHOLESTEROL 96.86 mg/dL (0-200); TRIGLYCERIDES 90 mg/dL (<150)
[2017-06-17 09:37] LABS: DIRECT LDL 50 mg/dL (<100)
[2017-06-17 12:43] LABS: ANTINUCLEAR ANTIBODIES Negative (Negative)
== END ==
LOC: OD 12:17
PROVIDERS: ATTEND Internal Medicine
DX: N17.8 Other acute kidney failure (principal); D72.89 Other specified disorders of white blood cells; E11.22 Type 2 diabetes mellitus with diabetic chronic kidney disease; E79.0 Hyperuricemia without signs of inflammatory arthritis and tophaceous disease; N18.3 Chronic kidney disease, stage 3 (moderate); K59.09 Other constipation; M12.88 Other specific arthropathies, not elsewhere classified, other specified site
CPT/HCPCS: 36415; 80053; 80061; 83036; 84443; 84550; 85025; 85652; 86038

== ENCOUNTER → 2017-06-30 | Outpatient (CLI) | payer MEDICARE, BC ==
[2017-06-30 12:19] LABS: HEMATOCRIT 35.3 % (37.9-51.0); HEMOGLOBIN 11.3 g/dL (13.5-17.0); MEAN CORPUSCULAR HEMOGLOBIN 28.3 pg (27.0-33.4); MEAN CORPUSCULAR HGB CONC 31.9 g/dL (32.0-36.0); MEAN CORPUSCULAR VOLUME 89 fl (80-97); PLATELET COUNT 535 10^3/uL (150-450); RED BLOOD COUNT 3.97 10^6/uL (4.35-5.55); RED CELL DISTRIBUTION WIDTH 18.7 % (11.5-14.0); WHITE BLOOD COUNT 13.2 10^3/uL (4.0-10.5)
[2017-06-30 12:22] LABS: APPEARANCE,URINE CLEAR; BILIRUBIN,URINE NEGATIVE (NEGATIVE); COLOR,URINE YELLOW; GLUCOSE, URINE NEGATIVE (NEGATIVE); KETONES,URINE NEGATIVE (NEGATIVE); LEUKOCYTE ESTERASE,URINE NEGATIVE (NEGATIVE); NITRITE,URINE NEGATIVE (NEGATIVE); PROTEIN,URINE NEGATIVE (NEGATIVE); URINE SPECIFIC GRAVITY 1.011; UROBILINOGEN,URINE NEGATIVE mg/dL (<2.0)
[2017-06-30 12:43] LABS: ANION GAP 8 (5-19); BLOOD UREA NITROGEN 36 mg/dL (7-20); CALCIUM 10.3 mg/dL (8.4-10.2); CARBON DIOXIDE 27 mmol/L (22-30); CHLORIDE 103 mmol/L (98-107); GLUCOSE 90 mg/dL (75-110); POTASSIUM 4.6 mmol/L (3.6-5.0); SODIUM 138.3 mmol/L (137-145)
[2017-07-01 12:38] LABS: CREATININE URINE 82.9 mg/dL (Not Estab.); MICROALBUMIN URINE 16.5 ug/mL (Not Estab.)
== END ==
LOC: OD 11:22
PROVIDERS: ATTEND Internal Medicine Nephrology
DX: N18.3 Chronic kidney disease, stage 3 (moderate) (principal); R80.9 Proteinuria, unspecified; E11.9 Type 2 diabetes mellitus without complications; I50.9 Heart failure, unspecified; E87.5 Hyperkalemia
CPT/HCPCS: 36415; 80048; 81001; 82043; 82570; 85027

== ENCOUNTER → 2017-09-01 | Outpatient (CLI) | payer MEDICARE, BC ==
[2017-09-01 12:51] LABS: ANION GAP 6 (5-19); BLOOD UREA NITROGEN 30 mg/dL (7-20); CALCIUM 10.3 mg/dL (8.4-10.2); CARBON DIOXIDE 30 mmol/L (22-30); CHLORIDE 105 mmol/L (98-107); GLUCOSE 100 mg/dL (75-110); POTASSIUM 4.5 mmol/L (3.6-5.0); SODIUM 141.2 mmol/L (137-145)
== END ==
LOC: OD 11:45
PROVIDERS: ATTEND Internal Medicine Cardiovascular Disease
DX: I10 Essential (primary) hypertension (principal)
CPT/HCPCS: 36415; 80048

== ENCOUNTER 2017-12-22 09:25 | Observation (INO) | payer MEDICARE, BC ==
[2017-12-22] MEDS ORDERED: ASPIRIN 81 MG TABLET, CHEWABLE PO ONE (09:30)
[2017-12-22 09:51] LABS: ABSOLUTE BASOPHILS # (AUTO) 0.1 10^3/uL (0.0-0.2); ABSOLUTE EOSINOPHILS # (AUTO) 0.1 10^3/uL (0.0-0.6); ABSOLUTE LYMPHOCYTES (AUTO) 2.3 10^3/uL (0.5-4.7); ABSOLUTE MONOCYTES (AUTO) 1.4 10^3/uL (0.1-1.4); ABSOLUTE NEUT (AUTO) 8.1 10^3/uL (1.7-8.2); EOSINOPHILS % (AUTO) 1.2 % (0-6); HEMATOCRIT 47.7 % (37.9-51.0); HEMOGLOBIN 16.1 g/dL (13.5-17.0); LYMPHOCYTES % (AUTO) 19.4 % (13-45); MEAN CORPUSCULAR HEMOGLOBIN 31.3 pg (27.0-33.4); MEAN CORPUSCULAR HGB CONC 33.7 g/dL (32.0-36.0); MEAN CORPUSCULAR VOLUME 93 fl (80-97); MONOCYTES % (AUTO) 11.6 % (3-13); PLATELET COUNT 270 10^3/uL (150-450); RED BLOOD COUNT 5.15 10^6/uL (4.35-5.55); RED CELL DISTRIBUTION WIDTH 15.7 % (11.5-14.0); SEGMENTED NEUTROPHILS % (AUTO) 66.8 % (42-78); TOTAL CELLS COUNTED % (AUTO) 100 %; WHITE BLOOD COUNT 12.1 10^3/uL (4.0-10.5)
--- NOTE | 2017-12-22 09:54 | EKG REPORT ---
SEVERITY:- ABNORMAL ECG - ATRIAL-SENSED VENTRICULAR-PACED COMPLEXES : Confirmed by: Brook Martin 22-Dec-2017 09:53:42
[2017-12-22 10:06] LABS: ALANINE AMINOTRANSFERASE 18 U/L (21-72); ALBUMIN 4.1 g/dL (3.5-5.0); ALKALINE PHOSPHATASE 50 U/L (38-126); ANION GAP 15 (5-19); ASPARTATE AMINO TRANSFERASE 21 U/L (17-59); BILIRUBIN,DIRECT 0.3 mg/dL (0.0-0.4); BILIRUBIN,TOTAL 1.1 mg/dL (0.2-1.3); BLOOD UREA NITROGEN 33 mg/dL (7-20); CALCIUM 10.1 mg/dL (8.4-10.2); CARBON DIOXIDE 25 mmol/L (22-30); CHLORIDE 103 mmol/L (98-107); CREATINE KINASE 32 U/L (55-170); GLUCOSE 100 mg/dL (75-110); POTASSIUM 4.6 mmol/L (3.6-5.0); SODIUM 142.9 mmol/L (137-145); TOTAL PROTEIN 7.2 g/dL (6.3-8.2)
[2017-12-22 10:16] LABS: CREATINE KINASE MB 0.75 ng/mL (<4.55); TROPONIN I 0.022 ng/mL
--- NOTE | 2017-12-22 10:22 | ER Document Report ---
ED General - General Chief Complaint: Chest Pain Stated Complaint: CHEST PAIN Time Seen by Provider: 12/22/17 10:21 Mode of Arrival: Ambulatory Information source: Patient, Relative Notes: 82-year-old male history of pacemaker triple bypass 20 years ago presents with complaints of chest pressure sensation over the past 3 days lasting for a few hours at a time. Patient currently states his chest pain has resolved after he taken aspirin. He denies any fevers or chills denies any cough shortness of breath. Patient states he has had 2 stress tests 6 months ago TRAVEL OUTSIDE OF THE [place] IN LAST 30 DAYS: No - HPI Onset: Other - 3 days Onset/Duration: Waxing and waning Quality of pain: Pressure Severity: Mild Pain Level: 1 Associated symptoms: Chest pain Exacerbated by: Denies Relieved by: Other - aspirin Similar symptoms previously: Yes Recently seen / treated by doctor: Yes - Related Data Allergies/Adverse Reactions: No Known Allergies Allergy (Verified 05/24/17 14:58) Past Medical History - Social History Smoking Status: Never Smoker Cigarette use (# per day): No Chew tobacco use (# tins/day): No Smoking Education Provided: No Frequency of alcohol use: None Drug Abuse: None Family History: Hyperlipidemia Patient has suicidal ideation: No Patient has homicidal ideation: No - Past Medical History Cardiac Medical History: Reports: Hx Congestive Heart Failure, Hx Heart Attack - 20 years ago, Hx Hypercholesterolemia, Hx Hypertension Renal/ Medical History: Denies: Hx Peritoneal Dialysis Musculoskeletal Medical History: Reports Hx Arthritis Past Surgical History: Reports: Hx Cardiac Surgery - triple bypass/pacemaker, Hx Coronary Artery Bypass Graft Review of Systems - Review of Systems Notes: REVIEW OF SYSTEMS: CONSTITUTIONAL : Denies fever, chills, or sweats. Denies recent illness. EENT: Denies eye, ear, throat, or mouth pain or symptoms. Denies nasal or sinus congestion or discharge. Denies throat, tongue, or mouth swelling or difficulty swallowing. CARDIOVASCULAR: Admits to chest pain RESPIRATORY: Denies cough, cold, or chest congestion. Denies shortness of breath, difficulty breathing, or wheezing. GASTROINTESTINAL: Denies abdominal pain or distention. Denies nausea, vomiting , or diarrhea. Denies blood in vomitus, stools, or per rectum. Denies black, tarry stools. Denies constipation. GENITOURINARY: Denies difficulty urinating, painful urination, burning, frequency, blood in urine, or discharge. MUSCULOSKELETAL: Denies back or neck pain or stiffness. Denies joint pain or swelling. SKIN: Denies rash, lesions or sores. HEMATOLOGIC : Denies easy bruising or bleeding. LYMPHATIC: Denies swollen, enlarged glands. NEUROLOGICAL: Denies confusion or altered mental status. Denies passing out or loss of consciousness. Denies dizziness or lightheadedness. Denies headache. Denies weakness or paralysis or loss of use of either side. Denies problems with gait or speech. Denies sensory loss, numbness, or tingling. Denies seizures. PSYCHIATRIC: Denies anxiety or stress. Denies depression, suicidal ideation, or homicidal ideation. ALL OTHER SYSTEMS REVIEWED AND NEGATIVE. Dictation was performed using [employer]) voice recognition software PHYSICAL EXAMINATION: GENERAL: Well-appearing, well-nourished and in no acute distress. HEAD: Atraumatic, normocephalic. EYES: Pupils equal round and reactive to light, extraocular movements intact, sclera anicteric, conjunctiva are normal. ENT: Nares patent, oropharynx clear without exudates. Moist mucous membranes. NECK: Normal range of motion, supple without lymphadenopathy LUNGS: Breath sounds clear to auscultation bilaterally and equal. No wheezes rales or rhonchi. HEART: Regular rate and rhythm without murmurs ABDOMEN: Soft, nontender, nondistended abdomen. No guarding, no rebound. No masses appreciated. Musculoskeletal: Normal range of motion, no pitting or edema. No cyanosis. NEUROLOGICAL: Cranial nerves grossly intact. Normal speech, normal gait. Normal sensory, motor exams PSYCH: Normal mood, normal affect. SKIN: Warm, Dry, normal turgor, no rashes or lesions noted. Physical Exam - Vital signs Vitals: Resp BP Pulse Ox 19 135/79 H 95 12/22/17 09:30 12/22/17 09:30 12/22/17 09:30 Course - Vital Signs Vital signs: Temp Pulse Resp BP Pulse Ox 16 135/79 H 94 12/22/17 12:00 12/22/17 09:30 12/22/17 12:00 12/22/17 10:54 There are some mild EKG changes noted, there is ST elevations in V3 V4 V5 lab work pending patient is pain-free at this time - Laboratory Result Diagrams: 12/22/17 09:00 12/22/17 09:00 Laboratory results interpreted by me: 12/22/17 12/22/17 09:00 09:00 WBC 12.1 H RDW 15.7 H BUN 33 H Creatinine 2.04 H Est GFR ( Amer) 38 L Est GFR (Non-Af Amer) 31 L ALT 18 L Creatine Kinase 32 L - Diagnostic Test Radiology reviewed: Image reviewed, Reports reviewed - EKG Interpretation by Me EKG shows normal: Sinus rhythm, Intervals, QRS Complexes, ST-T Waves When compared to previous EKG there are: Changes noted - T-wave elevations noted in V1 to V4 Discharge - Discharge Clinical Impression: Chest pain Qualifiers: Chest pain type: unspecified Qualified Code(s): R07.9 - Chest pain, unspecified Chronic kidney disease Qualifiers: Chronic kidney disease stage: stage 3 (moderate) Qualified Code(s): N18.3 - Chronic kidney disease, stage 3 (moderate) Condition: Stable Disposition: ADMITTED OBSERVATION Admitting Provider: Hospitalist Unit Admitted: Telemetry Referrals: TIFFANIE WILKERSON MD [Primary Care Provider] - Follow up as needed
--- NOTE | 2017-12-22 10:25 | RADIOLOGY REPORT (SQ) ---
EXAM DESCRIPTION: CHEST SINGLE VIEW COMPLETED DATE/TIME: 12/22/2017 10:03 am REASON FOR STUDY: cp COMPARISON: May 2017 EXAM PARAMETERS: NUMBER OF VIEWS: One view. TECHNIQUE: Single frontal radiographic view of the chest acquired. RADIATION DOSE: NA LIMITATIONS: None. FINDINGS: LUNGS AND PLEURA: No opacities, masses or pneumothorax. No pleural effusion. MEDIASTINUM AND HILAR STRUCTURES: No masses. Contour normal. HEART AND VASCULAR STRUCTURES: The configuration of the heart mediastinal structures is unchanged. BONES: No acute findings. HARDWARE: AICD device is unchanged in position. Multiple surgical clips are again identified. The p reviously described broken sternal wires are again identified. OTHER: There is some elevation of the right hemidiaphragm. IMPRESSION: No significant interval change. No acute findings. Other findings as noted above TECHNICAL DOCUMENTATION: JOB ID: [id number] [employer]- All Rights Reserved Reading location - IP/workstation name: [email or web address]
[2017-12-22] MEDS ORDERED: ONDANSETRON 4 MG TAB.RAPDIS PO PRN (12:31)
[2017-12-22] MEDS ORDERED: OXYCODONE-ACETAMINOPHEN 5-325 MG TABLET PO PRN (12:31)
[2017-12-22] MEDS ORDERED: NITROGLYCERIN 0.4 MG/TAB 25 TAB/BOTTLE SL PRN (12:38)
--- NOTE | 2017-12-22 12:51 | PDOC H&P ---
History of Present Illness Admission Date/PCP: TIFFANIE WILKERSON MD History of Present Illness: LUDMILA HERMOSILLO is a very pleasant 82 year old male patient presents with chief complaint of chest pain of 3 days duration. The chest pain is described as intermittent, pressure-like, nonradiating and about 5 or 10 on pain scale. Of note patient had triple bypass surgery 20 years ago and cardiac stress test done 6 months ago and reportedly it was normal. If persist enzymes negative but his EKG shows ST elevation in lead to 2, history 4 and 5. Denies any associated shortness of previous, cough, palpitation, diaphoresis, nausea, vomiting, abdominal pain or any urinary complaints. No orthopnea or paroxysmal nocturnal dyspnea. No dizziness, headache blurry of vision or any seizure activities. Past Medical History Cardiac Medical History: Reports: Congestive Heart Failure, Myocardial Infarction - 20 years ago, Hyperlipidema, Hypertension Musculoskeltal Medical History: Reports: Arthritis Past Surgical History Past Surgical History: Reports: Coronary Artery Bypass Graft Social History Smoking Status: Never Smoker Frequency of Alcohol Use: None Hx Recreational Drug Use: No Drugs: None - Advance Directive Resuscitation Status: Full Code Family History Family History: Hyperlipidemia Parental Family History Reviewed: Yes Children Family History Reviewed: Yes Sibling(s) Family History Reviewed.: Yes Medication/Allergy Home Medications: Allopurinol [Zyloprim 100 mg Tablet] 100 mg PO Q12 05/24/17 Atenolol [Tenormin 100 mg Tablet] 100 mg PO Q12 05/24/17 Atorvastatin Calcium [Lipitor 40 mg Tablet] 40 mg PO QHS 05/24/17 Colchicine [Colcrys 0.6 mg Tablet] 0.6 mg PO DAILY 05/24/17 Diclofenac Sodium [Voltaren] 1 applic TP .ASDIR PRN 05/24/17 Digoxin [Digox] 125 mcg PO DAILY 05/24/17 Furosemide [Lasix 20 mg Tablet] 20 mg PO QAM 05/24/17 Nitroglycerin [Nitrostat 0.4 mg (1/150 Gr) Tabs 25/Bottle] 1 tab SL Q5MP PRN Sotalol HCl [Betapace 80 mg Tablet] 80 mg PO Q12 05/24/17 Spironolactone [Aldactone 25 mg Tablet] 25 mg PO .ASDIR PRN 05/24/17 Tramadol HCl/Acetaminophen [Tramadol-Acetaminophn 37.5-325] 1 tab PO Q12HP PRN 05/24/17 Valsartan [Diovan 160 mg Tablet] 160 mg PO DAILY 05/24/17 [place]-3 Fatty Acids/Fish Oil [Fish Oil 1,000 mg Capsule] 1 cap PO DAILY Aspirin [Ecotrin 325 mg EC Tablet] 325 mg PO QHS tabec 05/27/17 Prednisone [Deltasone 20 mg Tablet] 40 mg PO DAILY 3 Days tablet 05/27/17 Allergies/Adverse Reactions: No Known Allergies Allergy (Verified 05/24/17 14:58) Review of Systems Constitutional: PRESENT: as per HPI Eyes: PRESENT: as per HPI Ears: PRESENT: as per HPI Cardiovascular: PRESENT: as per HPI Respiratory: PRESENT: as per HPI Gastrointestinal: PRESENT: as per HPI Neurological: PRESENT: as per HPI Psychiatric: PRESENT: as per HPI Physical Exam Vital Signs: Temp Pulse Resp BP Pulse Ox 16 135/79 H 94 12/22/17 12:00 12/22/17 09:30 12/22/17 12:00 General appearance: PRESENT: no acute distress Head exam: PRESENT: atraumatic Eye exam: PRESENT: conjunctiva pink Mouth exam: PRESENT: moist Neck exam: ABSENT: carotid bruit, JVD, lymphadenopathy, thyromegaly Respiratory exam: PRESENT: clear to auscultation juliane. ABSENT: rales, rhonchi, wheezes Cardiovascular exam: PRESENT: RRR. ABSENT: diastolic murmur, rubs, systolic murmur GI/Abdominal exam: PRESENT: normal bowel sounds, soft. ABSENT: distended, guarding, mass, organolmegaly, rebound, tenderness Extremities exam: PRESENT: full ROM. ABSENT: calf tenderness, clubbing, pedal edema Neurological exam: PRESENT: alert, awake, oriented to time, oriented to situation, reflexes normal Psychiatric exam: PRESENT: appropriate affect, normal mood. ABSENT: homicidal ideation, suicidal ideation Results Laboratory Results: 12/22/17 09:00 12/22/17 09:00 12/22/17 12/22/17 09:00 09:00 WBC 12.1 H RBC 5.15 Hgb 16.1 Hct 47.7 MCV 93 MCH 31.3 MCHC 33.7 RDW 15.7 H Plt Count 270 Seg Neutrophils % 66.8 Lymphocytes % 19.4 Monocytes % 11.6 Eosinophils % 1.2 Basophils % 1.0 Absolute Neutrophils 8.1 Absolute Lymphocytes 2.3 Absolute Monocytes 1.4 Absolute Eosinophils 0.1 Absolute Basophils 0.1 Sodium 142.9 Potassium 4.6 Chloride 103 Carbon Dioxide 25 Anion Gap 15 BUN 33 H Creatinine 2.04 H Est GFR ( Amer) 38 L Est GFR (Non-Af Amer) 31 L Glucose 100 Calcium 10.1 Total Bilirubin 1.1 AST 21 ALT 18 L Alkaline Phosphatase 50 Total Protein 7.2 Albumin 4.1 12/22/17 12/22/17 09:00 09:00 Creatine Kinase 32 L CK-MB (CK-2) 0.75 Troponin I 0.022 Impressions: Chest X-Ray 12/22/17 09:30 IMPRESSION: No significant interval change. No acute findings. Other findings as noted above Assessment & Plan - Diagnosis (1) Chest pain Qualifiers: Chest pain type: unspecified Qualified Code(s): R07.9 - Chest pain, unspecified Is this a current diagnosis for this admission?: Yes Plan: Since patient has multiple risk factors for acute coronary syndrome will admit the patient for observation. Continuous equipment monitor phototypesetting. Trend his cardiac enzymes. Repeat EKG and stress test. (2) Coronary artery disease Qualifiers: Coronary Disease-Associated Artery/Lesion type: [place] artery Is this a current diagnosis for this admission?: Yes Plan: Patient has history of myocardial infarction and coronary artery bypass graft. I will continue his home medications. 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 In the meantime we will avoid nephrotoxic agents. (4) Hypertension Qualifiers: Hypertension type: essential hypertension Qualified Code(s): I10 - Essential (primary) hypertension Is this a current diagnosis for this admission?: Yes Plan: Continue his home medication. (5) Hyperlipidemia Qualifiers: Hyperlipidemia type: unspecified Qualified Code(s): E78.5 - Hyperlipidemia , unspecified Is this a current diagnosis for this admission?: Yes Plan: Continue his home medications. - Time Critical Time spent with patient: 25-34 minutes
[2017-12-22] MEDS ORDERED: (PENDING PHARMACY ID) (Tramadol Hcl/Acetaminophen [Ultracet 37.5 Mg/325 Mg Tablet] 1 TAB) PO PRN ×2 (14:54→16:06)
[2017-12-22] MEDS: HEPARIN SOD (PORCINE) 5,000 UNIT/ML 1 ML SYRINGE SUBCUT SCH ×2 (14:55→21:04)
[2017-12-22] MEDS ORDERED: (PENDING PHARMACY ID) (Nifedipine [Nifedipine Er] 30 MG) PO SCH (15:00)
[2017-12-22] MEDS ORDERED: NIFEDIPINE 30 MG TAB.ER.24 PO ONE (16:30)
[2017-12-22] MEDS: COLCHICINE 0.6 MG TABLET PO SCH (17:04)
--- NOTE | 2017-12-22 19:21 | EKG REPORT ---
SEVERITY:- ABNORMAL ECG - ATRIAL-SENSED VENTRICULAR-PACED RHYTHM : Confirmed by: Brook Martin 22-Dec-2017 19:20:26
[2017-12-22] MEDS ORDERED: ATORVASTATIN CALCIUM 40 MG TABLET PO SCH (22:00)
[2017-12-23 05:08] LABS: HEMATOCRIT 43.6 % (37.9-51.0); MEAN CORPUSCULAR HEMOGLOBIN 31.5 pg (27.0-33.4); MEAN CORPUSCULAR HGB CONC 34.3 g/dL (32.0-36.0); MEAN CORPUSCULAR VOLUME 92 fl (80-97); PLATELET COUNT 220 10^3/uL (150-450); RED BLOOD COUNT 4.75 10^6/uL (4.35-5.55); RED CELL DISTRIBUTION WIDTH 15.6 % (11.5-14.0); WHITE BLOOD COUNT 9.4 10^3/uL (4.0-10.5)
[2017-12-23 05:37] LABS: ANION GAP 13 (5-19); BLOOD UREA NITROGEN 37 mg/dL (7-20); CALCIUM 9.7 mg/dL (8.4-10.2); CARBON DIOXIDE 24 mmol/L (22-30); CHLORIDE 106 mmol/L (98-107); GLUCOSE 108 mg/dL (75-110); POTASSIUM 4.7 mmol/L (3.6-5.0); SODIUM 142.5 mmol/L (137-145)
[2017-12-23] MEDS: HEPARIN SOD (PORCINE) 5,000 UNIT/ML 1 ML SYRINGE SUBCUT SCH ×2 (05:52→14:44)
[2017-12-23] MEDS ORDERED: LANSOPRAZOLE 30 MG TAB.RAP.DR PO SCH (06:00)
[2017-12-23] MEDS ORDERED: ASPIRIN 325 MG TABLET PO SCH (10:00)
[2017-12-23] MEDS ORDERED: ALLOPURINOL 100 MG TABLET PO SCH (10:00)
[2017-12-23] MEDS ORDERED: NIFEDIPINE 30 MG TAB.ER.24 PO SCH (10:00)
[2017-12-23] MEDS ORDERED: VALSARTAN 160 MG TABLET PO SCH (10:00)
[2017-12-23] MEDS ORDERED: SPIRONOLACTONE 25 MG TABLET PO SCH (10:00)
[2017-12-23] MEDS ORDERED: PREDNISONE 5 MG TABLET PO SCH (10:00)
[2017-12-23] MEDS: COLCHICINE 0.6 MG TABLET PO SCH (11:36)
[2017-12-23] MEDS ORDERED: REGADENOSON INJ 0.4 MG/5 ML DISP.SYRIN IV ONE (12:35)
--- NOTE | 2017-12-23 13:36 | DRAGON STRESS TEST REPORT ---
INTRAVENOUS LEXISCAN CARDIOLITE STRESS TEST USING SINGLE PHOTON EMMISION COMPUTERIZED TOMOGRAPHIC. DATE OF PROCEDURE: December 23, 2017, INDICATION : Chest pain, known CAD CARDIAC RISK FACTORS: Hypertension, known CAD, dyslipidemia RESTING EKG: Sinus rhythm, ventricular paced beats STRESS EKG: No significant ST segment changes noted with LexiScan bolus REASON FOR TERMINATION: Protocol. PROCEDURE REPORT: Baseline heart rate 74 beats per minute with blood pressure of 109/58. Patient had no significant complaints. Patient was bolused with Lexiscan 0.4 mg intravenously followed by saline bolus. Heart rate at 2 minutes post bolus 91 with a blood pressure of 112/59. 3 minutes post bolus heart rate 92 with blood pressure of 114/59. No significant EKG changes were noted. Patient had no significant complaints during the procedure or postprocedure. CONCLUSIONS: Normal EKG and hemodynamic response to IV LexiScan. NUCLEAR DATA: At rest the patient was given 11.89 millicuries of technetium 99 sestamibi injected intravenously. As per protocol rest gated SPECT images were obtained. On day of stress test, the patient was given intravenous LexiScan at a dose of 0.4 mg in 5 mL intravenously, followed by flush with normal saline. Subsequently the stress dose of 37.1 millicuries of technetium 99 sestamibi was injected intravenously. As per protocol stress gated images were obtained. NUCLEAR INTERPRETATION: Both raw and processed data were used for interpretation. Visual, qualitative, computer-generated quantitative data was used. There was good myocardial uptake of technetium compound. Motion artifact and soft tissue attenuations were noted. Increased visceral uptake was noted. Predominantly severe fixed defect noted in the inferior, inferolateral and lateral wall of the left ventricle, with minimal surrounding ischemia especially towards the inferior wall. EKG gated imaging showed LV EF at 20 %, rest and stress gated EF similar visually, LVH noted. EF can be falsely low in LVH patient. T. I D. ratio was 1.00. Lung heart ratio noted to be within normal limits 0.30. No significant extracardiac and abnormal radiotracer activities were noted. RV free wall uptake was noted to be WNL. IMPRESSION: Also refer to comments under nuclear interpretation. Also test results needs to be interpreted in the context of pretest probability. 1. Predominantly severe fixed defect noted in the inferior, inferolateral and lateral wall of the left ventricle, with minimal surrounding ischemia especially towards the inferior wall. 2. LVH suspected. 3. EKG gated imaging shows left ventricular ejection fraction of approx. 20 %. 4. Clinical correlation requested as occasionally single vessel disease or balanced ischemia could be missed. In approximately 10% of the cases Lexiscan may not cause adequate vasodilatory stress. RECOMMENDATIONS: Low threshold for heart cath if continuing symptoms. Recommend 2D echo for further evaluation of LVEF. Optimize medical management. Aggressive risk factor modification and medical management. Close cardiology follow-up is also recommended. Clinical correlation with echocardiogram derived ejection fraction. Inability to exercise by itself can lead to increased cardiovascular event risks. Consider cardiology consultation and or follow-up if clinically indicated. I am available for cardiology evaluation and consultation if requested by the sharepoint solutions developer, unless patient already has a hair dryer. Dr. Juan C Martin. MRCP Board certified in cardiology and sleep medicine. Board certified in nuclear cardiology, adult echocardiography. SOL
--- NOTE | 2017-12-23 13:56 | PDOC DISCHARGE SUMMARY ---
General - Admit/Disc Date/PCP Admission Date/Primary Care Provider: 12/22/17 12:43 TIFFANIE WILKERSON MD Discharge Date: 12/23/17 - Discharge Diagnosis (1) Chest pain Is this a current diagnosis for this admission?: Yes (2) Coronary artery disease Is this a current diagnosis for this admission?: Yes (3) Chronic kidney disease, stage IV (severe) Is this a current diagnosis for this admission?: Yes (4) Hypertension Is this a current diagnosis for this admission?: Yes (5) Hyperlipidemia Is this a current diagnosis for this admission?: Yes - Additional Information Resuscitation Status: Full Code Home Medications: Alendronate Sodium [Fosamax 70 mg Tablet] 70 mg PO WE@1000 12/22/17 Allopurinol [Zyloprim 100 mg Tablet] 100 mg PO DAILY 12/22/17 Aspirin [Aspirin EC] 81 mg PO DAILY 12/22/17 Atorvastatin Calcium [Lipitor 40 mg Tablet] 40 mg PO QHS 12/22/17 Colchicine [Colcrys 0.6 mg Tablet] 0.6 mg PO BID 12/22/17 Metoprolol Succinate [Toprol Xl 50 mg Tab.sr] 50 mg PO DAILY 12/22/17 Nifedipine [Nifedipine ER] 30 mg PO DAILY 12/22/17 Prednisone [Deltasone 5 mg Tablet] 15 mg PO DAILY 12/22/17 Spironolactone [Aldactone 25 mg Tablet] 25 mg PO DAILY 12/22/17 Tramadol HCl/Acetaminophen [Ultracet 37.5 mg/325 mg Tablet] 1 tab PO BIDP PRN Valsartan [Diovan 160 mg Tablet] 160 mg PO DAILY 12/22/17 History of Present Illness History of Present Illness: LUDMILA HERMOSILLO is a very pleasant 82 year old male patient presents with chief complaint of chest pain of 3 days duration. The chest pain is described as intermittent, pressure-like, nonradiating and about 5 or 10 on pain scale. Of note patient had triple bypass surgery 20 years ago and cardiac stress test done 6 months ago and reportedly it was normal. If persist enzymes negative but his EKG shows ST elevation in lead to 2, history 4 and 5. Denies any associated shortness of previous, cough, palpitation, diaphoresis, nausea, vomiting, abdominal pain or any urinary complaints. No orthopnea or paroxysmal nocturnal dyspnea. No dizziness, headache blurry of vision or any seizure activities. Hospital Course Hospital Course: 82 years old male patient admitted for chest pain which is relieved by aspirin. Since patient has extensive cardiac history is admitted for observation. Patient remained stable and chest pain-free throughout the night. History set of cardiac enzymes are negative and this morning his cardiac stress test is negative. I consulted Dr. Martin to evaluate this patient since patient has diffuse ST elevation at several leads. This morning I seen patient resting in bed comfortably he is not in pain or any form of distress. His vital signs are within normal limits and his labs are stable patient is good to go home. I will continue all his home medication and follow-up with his primary high tension tester Dr. Wilkerson. Physical Exam Vital Signs: Temp Pulse Resp BP Pulse Ox 97.9 F 86 24 H 126/63 H 96 12/23/17 11:39 12/23/17 11:39 12/23/17 11:39 12/23/17 11:39 12/23/17 11:39 Intake & Output 12/22/17 12/23/17 12/24/17 06:59 06:59 06:59 Intake Total 609 Output Total 750 Balance -141 Weight 74 kg General appearance: PRESENT: no acute distress Head exam: PRESENT: atraumatic Eye exam: PRESENT: conjunctiva pink Mouth exam: PRESENT: moist Neck exam: ABSENT: carotid bruit, JVD, lymphadenopathy, thyromegaly Respiratory exam: PRESENT: clear to auscultation juliane. ABSENT: rales, rhonchi, wheezes Cardiovascular exam: PRESENT: RRR. ABSENT: diastolic murmur, rubs, systolic murmur GI/Abdominal exam: PRESENT: normal bowel sounds, soft. ABSENT: distended, guarding, mass, organolmegaly, rebound, tenderness Extremities exam: PRESENT: full ROM. ABSENT: calf tenderness, clubbing, pedal edema Neurological exam: PRESENT: alert, awake, oriented to time, oriented to situation Psychiatric exam: PRESENT: normal mood Results Laboratory Results: 12/23/17 04:17 12/23/17 04:17 12/23/17 12/23/17 04:17 04:17 WBC 9.4 RBC 4.75 Hgb 15.0 Hct 43.6 MCV 92 MCH 31.5 MCHC 34.3 RDW 15.6 H Plt Count 220 Sodium 142.5 Potassium 4.7 Chloride 106 Carbon Dioxide 24 Anion Gap 13 BUN 37 H Creatinine 1.97 H Est GFR ( Amer) 39 L Est GFR (Non-Af Amer) 33 L Glucose 108 Calcium 9.7 12/22/17 12/22/17 13:23 17:48 Troponin I 0.022 0.018 Impressions: Chest X-Ray 12/22/17 09:30 IMPRESSION: No significant interval change. No acute findings. Other findings as noted above Qualifiers - * PATIENT BEING DISCHARGED WITH ANY OF THE FOLLOWING DIAGNOSIS: No
[2017-12-23 14:08] VITALS: BP 128/60
--- NOTE | 2017-12-23 18:50 | XCELERA REPORT ---
[address] [address] Transthoracic Echocardiogram Report Name: LUDMILA HERMOSILLO Age: 82 yrs Gender: Male : 1935 Patient Status: Inpatient Patient Location: [address] [place] [address] Study Date: 12/23/2017 02:16 PM Procedure: A complete two-dimensional transthoracic echocardiogram was performed (2D, M-mode, spectral and color flow Doppler). The study was technically difficult with many images being suboptimal in quality. Reason For Study: Chest pain and diffuse ST elevation Ordering Physician: SANDEEP MURILLO Performed By: Carole Mejia Interpretation Summary LV EF is 35% Left ventricular systolic function is moderately reduced. LV diastolic function could not be adequately assessed. There is moderate concentric left ventricular hypertrophy. The left ventricle is borderline dilated. Not all wall segments were well visualized. Regional wall motion abnormalities cannot be excluded due to limited visualization. The right ventricle is borderline dilated. The right ventricle appears to be hypertrophied The right ventricular systolic function is normal. The right atrium is mildly dilated. The left atrium is mildly dilated. There is a trace amount of mitral regurgitation There is no mitral valve stenosis. There is moderate aortic stenosis There is a peak gradient of 20, mean gradient 12 mm of Hg. There is a trace to mild amount of aortic regurgitation There is a trace or physiologic amount of tricuspid regurgitation Tricuspid regurgitation jet envelope not well defined to measure RV systolic pressure accurately. The aortic root is not well visualized but is probably normal size. The inferior vena cava was not well visualized There is no pericardial effusion. Consider additional methods to assess LVEF such as MUGA scan, CTA heart, cardiac MRI, ELISABETH, etc. if clinically indicated. MMode/2D Measurements & Calculations RVDd: 2.8 cm LVIDd: 5.7 cmFS: 20.3 % Ao root diam: 4.3 cm IVSd: 1.7 cm LVIDs: 4.6 cmEDV(Teich): 163.2 mlAo root area: 14.7 cm2 LVPWd: 1.5 cmESV(Teich): 96.5 ml EF(Teich): 40.9 % LVOT diam: 2.7 cm LVOT area: 5.8 cm2 Doppler Measurements & Calculations MV E max jessica: MV dec slope: Ao V2 max: LV V1 max P.5 cm/sec 220.4 cm/sec 2.4 mmHg MV A max jessica: 1097 cm/sec2 Ao max P.4 mmHgLV V1 mean P.8 cm/sec MV dec time: Ao V2 mean: 1.3 mmHg MV E/A: 5.3 0.09 sec 166.4 cm/sec LV V1 max: Ao mean P.4 cm/sec 11.9 mmHg LV V1 mean: Ao V2 VTI: 37.3 cm 52.6 cm/sec LV V1 VTI: NIYA(I,D): 2.1 cm2 13.4 cm NIYA(V,D): 2.0 cm2 SV(LVOT): 77.6 ml PA V2 max: PI max jessica: 53.2 cm/sec 92.7 cm/sec PA max P.1 mmHgPI max P.4 mmHg PI dec slope: 247.1 cm/sec2 Left Ventricle The left ventricle is borderline dilated. There is moderate concentric left ventricular hypertrophy. Left ventricular systolic function is moderately reduced. LV EF is 35%. Consider additional methods to assess LVEF such as MUGA scan, CTA heart, cardiac MRI, ELISABETH, etc. if clinically indicated. LV diastolic function could not be adequately assessed. Not all wall segments were well visualized. Regional wall motion abnormalities cannot be excluded due to limited visualization. Right Ventricle The right ventricle is borderline dilated. The right ventricle appears to be hypertrophied. The right ventricular systolic function is normal. Atria The right atrium is mildly dilated. The left atrium is mildly dilated. Interarterial septum not well visualized and not well dopplered. Cannot comment on ASD/PFO presence. Mitral Valve The mitral valve leaflets are sclerotic and show some degree of functional abnormality. There is mild mitral annular calcification. There is no mitral valve stenosis. There is a trace amount of mitral regurgitation. Aortic Valve The aortic valve is moderately calcified. There is moderate aortic stenosis. There is a peak gradient of 20, mean gradient 12 mm of Hg. There is a trace to mild amount of aortic regurgitation. Tricuspid Valve The tricuspid valve is not well visualized secondary to technical limitations. There is no tricuspid stenosis. There is a trace or physiologic amount of tricuspid regurgitation. Tricuspid regurgitation jet envelope not well defined to measure RV systolic pressure accurately. Pulmonic Valve The pulmonic valve is not well visualized. Great Vessels The aortic root is not well visualized but is probably normal size. The inferior vena cava was not well visualized. Effusions There is no pericardial effusion. : SANDEEP MURILLO > Brook Martin
[2017-12-23] MEDS ORDERED: CARVEDILOL 3.125 MG TABLET PO SCH (22:00)
[2017-12-24] MEDS ORDERED: (PENDING PHARMACY ID) (Alendronate Sodium [Fosamax 70 Mg Tablet] 70 MG) PO SCH (10:00)
== END 2017-12-23 16:09 | disposition home or self-care (01) ==
LOC: ER 09:25 → EH 12:43 → 5 14:09
PROVIDERS: ADMIT Internal Medicine; ATTEND Internal Medicine
DX: R07.89 Other chest pain (principal); I25.10 Atherosclerotic heart disease of native coronary artery without angina pectoris; I13.0 Hypertensive heart and chronic kidney disease with heart failure and stage 1 through stage 4 chronic kidney disease, or unspecified chronic kidney disease; I50.9 Heart failure, unspecified; N18.4 Chronic kidney disease, stage 4 (severe); E78.5 Hyperlipidemia, unspecified; I25.2 Old myocardial infarction; Z79.82 Long term (current) use of aspirin; Z79.899 Other long term (current) drug therapy; Z95.1 Presence of aortocoronary bypass graft; Z95.0 Presence of cardiac pacemaker
CPT/HCPCS: 93005; 99285; 36415 ×2; 82553; 82550; 85025; 85027; 80048; 80053; 84484; 93306; 93017; 71045; 78452; 93010; G0378 ×3; A9500; A9270 ×10; J2785; J1644; J3490 ×2; Q9969; J7512

== ENCOUNTER → 2018-01-02 | Outpatient (CLI) | payer MEDICARE, BC ==
[2018-01-02 11:07] LABS: HEMATOCRIT 44.4 % (37.9-51.0); HEMOGLOBIN 14.8 g/dL (13.5-17.0); MEAN CORPUSCULAR HEMOGLOBIN 31.2 pg (27.0-33.4); MEAN CORPUSCULAR HGB CONC 33.3 g/dL (32.0-36.0); MEAN CORPUSCULAR VOLUME 94 fl (80-97); PLATELET COUNT 253 10^3/uL (150-450); RED BLOOD COUNT 4.73 10^6/uL (4.35-5.55); RED CELL DISTRIBUTION WIDTH 15.9 % (11.5-14.0); WHITE BLOOD COUNT 17.8 10^3/uL (4.0-10.5)
[2018-01-02 11:10] LABS: APPEARANCE,URINE CLEAR; BILIRUBIN,URINE NEGATIVE (NEGATIVE); COLOR,URINE STRAW; GLUCOSE, URINE NEGATIVE (NEGATIVE); KETONES,URINE NEGATIVE (NEGATIVE); LEUKOCYTE ESTERASE,URINE NEGATIVE (NEGATIVE); NITRITE,URINE NEGATIVE (NEGATIVE); PROTEIN,URINE NEGATIVE (NEGATIVE); UROBILINOGEN,URINE NEGATIVE mg/dL (<2.0)
[2018-01-02 11:30] LABS: ALANINE AMINOTRANSFERASE 31 U/L (21-72); ALBUMIN 3.5 g/dL (3.5-5.0); ALKALINE PHOSPHATASE 42 U/L (38-126); ANION GAP 12 (5-19); ASPARTATE AMINO TRANSFERASE 16 U/L (17-59); BILIRUBIN,DIRECT 0.2 mg/dL (0.0-0.4); BILIRUBIN,TOTAL 0.9 mg/dL (0.2-1.3); BLOOD UREA NITROGEN 41 mg/dL (7-20); CALCIUM 9.9 mg/dL (8.4-10.2); CARBON DIOXIDE 22 mmol/L (22-30); CHLORIDE 109 mmol/L (98-107); GLUCOSE 97 mg/dL (75-110); POTASSIUM 4.8 mmol/L (3.6-5.0)
== END ==
LOC: OD 10:03
PROVIDERS: ATTEND Internal Medicine Nephrology
DX: N18.3 Chronic kidney disease, stage 3 (moderate) (principal); I50.9 Heart failure, unspecified; R80.9 Proteinuria, unspecified; D64.9 Anemia, unspecified
CPT/HCPCS: 36415; 80053; 81001; 83735; 85027

== ENCOUNTER → 2018-07-09 | Outpatient (CLI) | payer MEDICARE, BC ==
[2018-07-09 11:10] LABS: HEMATOCRIT 46.8 % (37.9-51.0); HEMOGLOBIN 15.6 g/dL (13.5-17.0); MEAN CORPUSCULAR HEMOGLOBIN 32.4 pg (27.0-33.4); MEAN CORPUSCULAR HGB CONC 33.4 g/dL (32.0-36.0); MEAN CORPUSCULAR VOLUME 97 fl (80-97); PLATELET COUNT 200 10^3/uL (150-450); RED BLOOD COUNT 4.83 10^6/uL (4.35-5.55); RED CELL DISTRIBUTION WIDTH 14.8 % (11.5-14.0); WHITE BLOOD COUNT 12.3 10^3/uL (4.0-10.5)
[2018-07-09 11:10] LABS: APPEARANCE,URINE CLEAR; BILIRUBIN,URINE NEGATIVE (NEGATIVE); COLOR,URINE YELLOW; GLUCOSE, URINE NEGATIVE (NEGATIVE); KETONES,URINE NEGATIVE (NEGATIVE); LEUKOCYTE ESTERASE,URINE NEGATIVE (NEGATIVE); NITRITE,URINE NEGATIVE (NEGATIVE); PROTEIN,URINE 30 mg/dL (NEGATIVE); URINE SPECIFIC GRAVITY 1.017; UROBILINOGEN,URINE NEGATIVE mg/dL (<2.0)
[2018-07-09 11:32] LABS: ANION GAP 11 (5-19); BLOOD UREA NITROGEN 37 mg/dL (7-20); CALCIUM 10.1 mg/dL (8.4-10.2); CARBON DIOXIDE 25 mmol/L (22-30); CHLORIDE 108 mmol/L (98-107); GLUCOSE 106 mg/dL (75-110); POTASSIUM 4.4 mmol/L (3.6-5.0); SODIUM 143.9 mmol/L (137-145)
== END ==
LOC: OD 09:48
PROVIDERS: ATTEND Internal Medicine Nephrology
DX: I13.0 Hypertensive heart and chronic kidney disease with heart failure and stage 1 through stage 4 chronic kidney disease, or unspecified chronic kidney disease (principal); I50.9 Heart failure, unspecified; N18.3 Chronic kidney disease, stage 3 (moderate); R80.9 Proteinuria, unspecified
CPT/HCPCS: 36415; 80048; 81001; 85027

== ENCOUNTER 2018-07-27 09:14 | Emergency (ER) | payer MEDICARE, BC ==
[2018-07-27] MEDS ORDERED: METOPROLOL TARTRATE PF/INJ 5 MG/5 ML SDV IV ONE ×5 (09:32→10:10)
[2018-07-27 10:01] LABS: ABSOLUTE BASOPHILS # (AUTO) 0.1 10^3/uL (0.0-0.2); ABSOLUTE EOSINOPHILS # (AUTO) 0.4 10^3/uL (0.0-0.6); ABSOLUTE LYMPHOCYTES (AUTO) 1.2 10^3/uL (0.5-4.7); ABSOLUTE NEUT (AUTO) 7.8 10^3/uL (1.7-8.2); BASOPHILS % (AUTO) 0.8 % (0-2); EOSINOPHILS % (AUTO) 3.6 % (0-6); HEMATOCRIT 48.4 % (37.9-51.0); HEMOGLOBIN 16.3 g/dL (13.5-17.0); LYMPHOCYTES % (AUTO) 11.4 % (13-45); MEAN CORPUSCULAR HEMOGLOBIN 32.8 pg (27.0-33.4); MEAN CORPUSCULAR HGB CONC 33.8 g/dL (32.0-36.0); MEAN CORPUSCULAR VOLUME 97 fl (80-97); MONOCYTES % (AUTO) 9.8 % (3-13); PLATELET COUNT 196 10^3/uL (150-450); RED BLOOD COUNT 4.98 10^6/uL (4.35-5.55); SEGMENTED NEUTROPHILS % (AUTO) 74.4 % (42-78); TOTAL CELLS COUNTED % (AUTO) 100 %; WHITE BLOOD COUNT 10.4 10^3/uL (4.0-10.5)
[2018-07-27] MEDS ORDERED: NITROGLYCERIN 2% OINTMENT 1 GM PACKET TP ONE (10:10)
--- NOTE | 2018-07-27 10:15 | RADIOLOGY REPORT (SQ) ---
EXAM DESCRIPTION: CHEST SINGLE VIEW COMPLETED DATE/TIME: 07/27/2018 10:04 am REASON FOR STUDY: bed 9 cp COMPARISON: 12/22/2017 NUMBER OF VIEWS: One view. TECHNIQUE: Single frontal radiographic image of the chest acquired. LIMITATIONS: Positioning. AP portable. FINDINGS: LUNGS AND PLEURA: Chronic elevation right diaphragm. No evidence of pulmonary edema or pn eumonia. MEDIASTINUM AND HEART: Stable cardiomegaly. SUPPORT DEVICES: Unchanged position of defibrillator. External pacing wires. BONY STRUCTURES: No acute findings. HARDWARE: See above. OTHER: No other significant finding. IMPRESSION: No acute findings. Stable, chronic changes. Reading location - IP/workstation name: [email or web address]
[2018-07-27 10:16] LABS: ALANINE AMINOTRANSFERASE 15 U/L (21-72); ALBUMIN 3.8 g/dL (3.5-5.0); ALKALINE PHOSPHATASE 61 U/L (38-126); ANION GAP 12 (5-19); ASPARTATE AMINO TRANSFERASE 14 U/L (17-59); BILIRUBIN,DIRECT 0.3 mg/dL (0.0-0.4); BILIRUBIN,TOTAL 1.7 mg/dL (0.2-1.3); BLOOD UREA NITROGEN 33 mg/dL (7-20); CALCIUM 10.1 mg/dL (8.4-10.2); CARBON DIOXIDE 24 mmol/L (22-30); CHLORIDE 104 mmol/L (98-107); CREATINE KINASE 49 U/L (55-170); GLUCOSE 136 mg/dL (75-110); POTASSIUM 4.3 mmol/L (3.6-5.0)
--- NOTE | 2018-07-27 10:16 | ER Document Report ---
ED General - General Chief Complaint: Chest Pain Stated Complaint: CHEST PAIN Time Seen by Provider: 07/27/18 09:35 Primary Care Provider: Shari GOODRICH MD [ACTIVE STAFF] - Follow up as needed Mode of Arrival: Medic Information source: Patient, Emergency Med Personnel Notes: This is a 82-year-old man with a history of coronary artery disease (CABG 20 years ago and the bronchus), cardiomyopathy (ejection fraction 35%, status post pacemaker/defibrillator 5 years ago at [facility]), chronic kidney disease (baseline creatinine approximately 2.2) who is brought in by EMS with chest pain in the setting of defibrillator going off twice (first time it is ever gone off). The patient states that over the weekend he was getting a lot of dyspnea with exertion. It was improved with rest. Today he woke up between 5 and 6 AM to go to the bathroom. As he was walking to the bathroom he noticed some retrosternal chest tightness which was nonradiating. He did state that it was associated with shortness of breath. He said it was mild at first and gradually got worse until he was 8/10. He states he took a nitroglycerin and started to feel a little better. At approximately 7:30 AM, he had his defibrillator go off. He had called EMS and they instructed him to take aspirin which he did (4 x 81 mg). Patient states that the defibrillator went off again at approximately 8 AM. EMS arrived and I given the patient nitroglycerin. Currently, the patient denies any chest pain. He states he has mild shortness of breath. He is tachypneic with a respiratory rate of 25. He is tachycardic with a heart rate of 120. TRAVEL OUTSIDE OF THE [place] IN LAST 30 DAYS: No - HPI Onset: This morning Onset/Duration: Gradual Quality of pain: Dull Severity: Severe Pain Level: 4 Associated symptoms: Chest pain, Shortness of breath. denies: Fever Exacerbated by: Walking Relieved by: Denies Similar symptoms previously: No Recently seen / treated by doctor: No - Related Data Allergies/Adverse Reactions: No Known Allergies Allergy (Verified 05/24/17 14:58) Past Medical History - General Information source: Patient - Social History Smoking Status: Never Smoker Cigarette use (# per day): No Chew tobacco use (# tins/day): No Frequency of alcohol use: None Drug Abuse: None Lives with: Family Family History: Hyperlipidemia Patient has suicidal ideation: No Patient has homicidal ideation: No - Past Medical History Cardiac Medical History: Reports: Hx Congestive Heart Failure, Hx Heart Attack - 20 years ago, Hx Hypercholesterolemia, Hx Hypertension Renal/ Medical History: Denies: Hx Peritoneal Dialysis Musculoskeletal Medical History: Reports Hx Arthritis Past Surgical History: Reports: Hx Cardiac Surgery - triple bypass/pacemaker, Hx Coronary Artery Bypass Graft Review of Systems - Review of Systems Constitutional: denies: Chills, Fever EENT: No symptoms reported Cardiovascular: See HPI Respiratory: See HPI Gastrointestinal: No symptoms reported Genitourinary: No symptoms reported Male Genitourinary: No symptoms reported Musculoskeletal: No symptoms reported Skin: No symptoms reported Hematologic/Lymphatic: No symptoms reported Neurological/Psychological: No symptoms reported Physical Exam - Vital signs Vitals: Pulse Ox 97 07/27/18 09:16 Notes: Physical exam: GENERAL: Is alert and oriented x3, answering questions. He denies chest pain at this time. He does appear mildly short of breath. HEAD: Atraumatic, normocephalic. EYES: Pupils equal round and reactive to light, extraocular movements intact, sclera anicteric, conjunctiva are normal. ENT: TMs normal, nares patent, oropharynx clear without exudates. Moist mucous membranes. NECK: Normal range of motion, supple without obvious mass or JVD. LUNGS: Breath sounds clear to auscultation bilaterally and equal. No wheezes rales or rhonchi. HEART: Regular rate and rhythm without murmurs, rubs or gallops. ABDOMEN: Soft, normoactive bowel sounds. No tenderness to palpation. No guarding, no rebound. No masses appreciated. EXTREMITIES: Normal range of motion, no pitting or edema. No clubbing or cy anosis. Patient does have a pulse discrepancy in both the right and upper extremities. His pulses are stronger on the left side. They are dopplerable on the right. NEUROLOGICAL: Cranial nerves II through XII grossly intact. Normal speech, moving all extremities. PSYCH: Normal mood, normal affect. SKIN: Warm, Dry, normal turgor, no rashes or lesions noted. Course - Re-evaluation Re-evalutation: Patient had taken full dose aspirin prior to arrival. He was given nitroglycerin x3 by EMS. He was pain-free in the emergency room. He was noted to have tachycardia at a rate of 120s. He received IV metoprolol 5 mg x4 Nitropaste Lovenox 79 mg Defibrillator interrogated: Discussed with Rep: Looks like the first shock occurred in the setting of the "VF range": Rate greater than 200. He was having a difficult time interpreting the results and recommended an EP irrigation. Discussed case with Dr. Santillan who agrees for transfer. The accepting will be Dr. Dyson. 07/27/18 12:33 07/27/18 12:51 07/27/18 15:23 Transport is here patient is stable for transport. - Vital Signs Vital signs: Temp Pulse Resp BP Pulse Ox 98.2 F 85 23 H 156/76 H 94 07/27/18 15:23 07/27/18 15:23 07/27/18 15:25 07/27/18 15:24 07/27/18 15:25 - Laboratory Result Diagrams: 07/27/18 09:37 07/27/18 09:37 Laboratory results interpreted by me: 07/27/18 07/27/18 09:37 09:37 RDW 15.0 H Lymphocytes % 11.4 L BUN 33 H Creatinine 2.24 H Est GFR ( Amer) 34 L Est GFR (Non-Af Amer) 28 L Glucose 136 H Total Bilirubin 1.7 H AST 14 L ALT 15 L Creatine Kinase 49 L Total Protein 6.0 L - Diagnostic Test Radiology reviewed: Image reviewed, Reports reviewed - Cardiomyopathy, elevated hemidiaphragm on the right, loss of volume on the right - EKG Interpretation by Me Rate: Tachycardia - EKG shows a ventricularly paced rhythm at 126 Critical Care Note - Critical Care Note Total time excluding time spent on procedures (mins): 60 Discharge - Discharge Clinical Impression: Chest pain, ICD shock/V. tach Condition: Stable Disposition: [facility] Referrals: Shari GOODRICH MD [ACTIVE STAFF] - Follow up as needed
[2018-07-27 10:27] LABS: CREATINE KINASE MB 1.46 ng/mL (<4.55)
[2018-07-27 10:29] LABS: TROPONIN I 0.055 ng/mL
--- NOTE | 2018-07-27 10:58 | EKG REPORT ---
SEVERITY:- ABNORMAL ECG - ATRIAL-SENSED VENTRICULAR-PACED RHYTHM : Confirmed by: Teto Jeong MD 27-Jul-2018 10:58:30
--- NOTE | 2018-07-27 11:00 | EKG REPORT ---
SEVERITY:- ABNORMAL ECG - VENTRICULAR-PACED COMPLEXES NON-DIAGNOSTIC : Confirmed by: Teto Jeong MD 27-Jul-2018 11:00:01
[2018-07-27] MEDS ORDERED: ENOXAPARIN SODIUM INJ 100 MG/1 ML DISP.SYRIN SUBCUT ONE (12:32)
[2018-07-27 15:27] VITALS: BP 156/76
== END 2018-07-27 15:29 | disposition short-term general hospital (02) ==
LOC: ER 09:14
DX: I47.2 Ventricular tachycardia (principal); I11.9 Hypertensive heart disease without heart failure; I43 Cardiomyopathy in diseases classified elsewhere; Z95.810 Presence of automatic (implantable) cardiac defibrillator; R07.9 Chest pain, unspecified; R06.02 Shortness of breath; I25.2 Old myocardial infarction; Z95.1 Presence of aortocoronary bypass graft
CPT/HCPCS: 93005; 96376; 99291; 96372; 96374; 36415; 82553; 82550; 85025; 80053; 84484; 71045; 93010; A9270; J3490; J1650

== ENCOUNTER 2018-08-13 01:13 | Emergency (ER) | payer MEDICARE, BC ==
--- NOTE | 2018-08-13 01:57 | RADIOLOGY REPORT (SQ) ---
EXAM DESCRIPTION: XR CHEST 1 VIEW COMPLETED DATE/TME: 08/13/2018 01:31 CLINICAL HISTORY: 83 years, Male, chest pain COMPARISON: 07/27/2018 chest x-ray NUMBER OF VIEWS: 1 TECHNIQUE: Portable chest LIMITATIONS: None. FINDINGS: Stable postsurgical change. Heart size is stable. Stable elevation of the right hemidiaphragm with adjacent subsegmental atelectasis. No pneumothorax. Atheromatous change thoracic aorta IMPRESSION: No acute cardiopulmonary process copyright 2010 [employer]- All Rights Reserved
--- NOTE | 2018-08-13 02:01 | ER Document Report ---
ED General - General Chief Complaint: Urinary Retention Stated Complaint: URINARY PROBLEMS Time Seen by Provider: 08/13/18 01:30 Primary Care Provider: FRANCISCO ALVARADO MD [Primary Care Provider] - Follow up as needed TRAVEL OUTSIDE OF THE [place] IN LAST 30 DAYS: No - HPI Notes: Patient is a 82-year-old male that presents to the emergency department for chief complaint of urinary retention. Patient states that he recently was discharged from [facility] after a prolonged admission for issues with his pacemaker firing. Patient had a Varma catheter in place for about 1-1/2 weeks. He was seen by Dr. Mcmillan at [facility] this morning and had the Varma catheter removed. He states he has been unable to void since the catheter was removed this morning. He is now having increased pressure and pain in his lower abdomen. He states the pain has radiated from his suprapubic region up into his chest. He stated the chest pain was a tight sensation that lasted for a few seconds and is now resolved. He denied associated shortness of breath. He denied any firing of his pacemaker. Past Medical History: CKD, hyperlipidemia, hypertension, CHF Past Surgical History: CABG, pacemaker/defibrillator placement Social History: Denies drugs alcohol and tobacco Family History: Reviewed and noncontributory for presenting illness Allergies: Reviewed, see documented allergy list. REVIEW OF SYSTEMS: CONSTITUTIONAL : No fever No chills No diaphoresis No recent illness EENT: No vision changes No congestion No sore throat CARDIOVASCULAR: chest pain No palpitations RESPIRATORY: No shortness of breath No cough No difficulty breathing GASTROINTESTINAL: abdominal pain No nausea No vomiting No diarrhea GENITOURINARY: No dysuria No hematuria difficulty urinating MUSCULOSKELETAL: No back pain No leg pain No arm pain SKIN: No rashes No lesions LYMPHATIC: No swollen, enlarged glands. NEUROLOGICAL: No lightheadedness No headache No weakness No paresthesias PSYCHIATRIC: No anxiety No depression PHYSICAL EXAMINATION: Vital signs reviewed, nursing noted reviewed. GENERAL: Well-appearing, well-nourished and in no acute distress. HEAD: Atraumatic, normocephalic. EYES: Eyes appear normal, extraocular movements intact, sclera anicteric, conjunctiva are normal. ENT: nares patent, oropharynx clear without exudates. Moist mucous membranes. NECK: Normal range of motion, supple without lymphadenopathy LUNGS: Breath sounds clear to auscultation bilaterally and equal. No wheezes rales or rhonchi. HEART: Regular rate and rhythm without murmurs ABDOMEN: Lower abdominal distention with suprapubic tenderness, soft, normoactive bowel sounds. No rebound, guarding, or rigidity. No masses apprec iated. EXTREMITIES: Nontender, good range of motion, no pitting or edema. NEUROLOGICAL: No focal neurological deficits. Moves all extremities spontaneously Motor and sensory grossly intact on exam. PSYCH: Normal mood, normal affect. SKIN: Warm, Dry, normal turgor, no rashes or lesions noted on exposed skin - Related Data Allergies/Adverse Reactions: No Known Allergies Allergy (Verified 05/24/17 14:58) Past Medical History - Social History Smoking Status: Never Smoker Family History: Hyperlipidemia - Past Medical History Cardiac Medical History: Reports: Hx Congestive Heart Failure, Hx Heart Attack - 20 years ago, Hx Hypercholesterolemia, Hx Hypertension Renal/ Medical History: Denies: Hx Peritoneal Dialysis Musculoskeletal Medical History: Reports Hx Arthritis Past Surgical History: Reports: Hx Cardiac Surgery - triple bypass/pacemaker, Hx Coronary Artery Bypass Graft Physical Exam - Vital signs Vitals: Resp BP Pulse Ox 18 158/74 H 96 08/13/18 01:26 08/13/18 01:26 08/13/18 01:26 Course - Re-evaluation Re-evalutation: 08/13/18 01:59 Vitals reviewed. Nursing notes reviewed. Patient is uncomfortable appearing and Varma catheter will be placed for his acute urine retention. His EKG shows a paced rhythm with a rate of 88. Patient is currently chest pain-free. The pain he describes in his chest was radiating from his lower abdomen is atypical in nature. He does have a significant cardiac history with recent admission for cardiac issues and therefore lab work will be obtained. 08/13/18 03:34 Patient reevaluated and had almost a liter of urine output. He states he is feeling much better. He believes the pain in his chest was radiating up from the pain in his bladder. His lab work is otherwise unremarkable. He will be discharged home with Varma leg bag and will follow again with his urologist - Vital Signs Vital signs: Temp Pulse Resp BP Pulse Ox 97.9 F 22 H 105/60 96 08/13/18 01:51 08/13/18 02:02 08/13/18 03:01 08/13/18 03:01 - Laboratory Result Diagrams: 08/13/18 02:17 08/13/18 02:17 Laboratory results interpreted by me: 08/13/18 08/13/18 08/13/18 02:01 02:17 02:17 WBC 15.4 H RBC 3.86 L Hgb 12.5 L Hct 37.0 L RDW 14.6 H Seg Neutrophils % 85.4 H Lymphocytes % 5.2 L Absolute Neutrophils 13.1 H Sodium 136.1 L BUN 48 H Creatinine 2.25 H Est GFR ( Amer) 34 L Est GFR (Non-Af Amer) 28 L Glucose 141 H Urine Protein 30 H Urine Blood LARGE H Ur Leukocyte Esterase TRACE H - EKG Interpretation by Me Additional EKG results interpreted by me: 08/13/18 04:03 Interpreted by myself [id number]: Ventricularly paced rhythm, rate 88, right bundle branch block, no ectopy Discharge - Discharge Clinical Impression: Acute retention of urine Chest pain Qualifiers: Chest pain type: unspecified Qualified Code(s): R07.9 - Chest pain, unspecified Condition: Stable Disposition: HOME, SELF-CARE Instructions: Varma Catheter Care ([facility]), Urinary Retention ([facility]) Additional Instructions: Please return to the emergency department if you have any worsening, or concern of your symptoms. Please return to the emergency department if you develop chest pain, difficulty breathing, severe abdominal pain, or ongoing vomiting. Please follow-up with your primary care physician in 2-3 days and any other recommended physicians. If prescribed, take all medications as directed. If you have any questions or concerns do not hesitate to return the emergency department for evaluation. Call your urologist this morning to discuss follow-up in the next 1-2 days Referrals: FRANCISCO ALVARADO MD [Primary Care Provider] - Follow up in 3-5 days
[2018-08-13 02:14] LABS: APPEARANCE,URINE SLIGHTLY-CLOUDY; BILIRUBIN,URINE NEGATIVE (NEGATIVE); COLOR,URINE YELLOW; GLUCOSE, URINE NEGATIVE (NEGATIVE); KETONES,URINE NEGATIVE (NEGATIVE); LEUKOCYTE ESTERASE,URINE TRACE (NEGATIVE); NITRITE,URINE NEGATIVE (NEGATIVE); PROTEIN,URINE 30 mg/dL (NEGATIVE); URINE SPECIFIC GRAVITY 1.006; UROBILINOGEN,URINE NEGATIVE mg/dL (<2.0)
[2018-08-13 02:48] LABS: ABSOLUTE BASOPHILS # (AUTO) 0.1 10^3/uL (0.0-0.2); ABSOLUTE EOSINOPHILS # (AUTO) 0.2 10^3/uL (0.0-0.6); ABSOLUTE LYMPHOCYTES (AUTO) 0.8 10^3/uL (0.5-4.7); ABSOLUTE MONOCYTES (AUTO) 1.2 10^3/uL (0.1-1.4); ABSOLUTE NEUT (AUTO) 13.1 10^3/uL (1.7-8.2); BASOPHILS % (AUTO) 0.6 % (0-2); EOSINOPHILS % (AUTO) 1.2 % (0-6); HEMOGLOBIN 12.5 g/dL (13.5-17.0); LYMPHOCYTES % (AUTO) 5.2 % (13-45); MEAN CORPUSCULAR HEMOGLOBIN 32.4 pg (27.0-33.4); MEAN CORPUSCULAR HGB CONC 33.9 g/dL (32.0-36.0); MEAN CORPUSCULAR VOLUME 96 fl (80-97); MONOCYTES % (AUTO) 7.6 % (3-13); PLATELET COUNT 362 10^3/uL (150-450); RED BLOOD COUNT 3.86 10^6/uL (4.35-5.55); RED CELL DISTRIBUTION WIDTH 14.6 % (11.5-14.0); SEGMENTED NEUTROPHILS % (AUTO) 85.4 % (42-78); TOTAL CELLS COUNTED % (AUTO) 100 %; WHITE BLOOD COUNT 15.4 10^3/uL (4.0-10.5)
[2018-08-13 02:51] LABS: ANION GAP 8 (5-19); BLOOD UREA NITROGEN 48 mg/dL (7-20); CALCIUM 9.2 mg/dL (8.4-10.2); CARBON DIOXIDE 23 mmol/L (22-30); CHLORIDE 105 mmol/L (98-107); GLUCOSE 141 mg/dL (75-110); POTASSIUM 4.4 mmol/L (3.6-5.0); SODIUM 136.1 mmol/L (137-145)
[2018-08-13 04:09] VITALS: BP 120/62
--- NOTE | 2018-08-13 12:37 | EKG REPORT ---
SEVERITY:- ABNORMAL ECG - A SENSED AND VENTRICULAR-PACED COMPLEXES LEFT ATRIAL ABNORMALITY VENTRULAR PACED RHYTHM.RECOMMEND PACER INTEROGATION : Confirmed by: Geena Ortiz MD 13-Aug-2018 12:36:41
== END 2018-08-13 04:43 | disposition home or self-care (01) ==
LOC: ER 01:13
DX: R33.9 Retention of urine, unspecified (principal); R07.9 Chest pain, unspecified; R10.30 Lower abdominal pain, unspecified; I11.0 Hypertensive heart disease with heart failure; I50.9 Heart failure, unspecified
CPT/HCPCS: 36415; 51702; 71045; 80048; 81001; 84484; 85025; 93005; 93010; 99284

== ENCOUNTER 2018-08-31 10:29 | Emergency (ER) | payer MEDICARE, BC ==
--- NOTE | 2018-08-31 11:10 | ER Document Report ---
ED GI/ - General Chief Complaint: Inability to Void Stated Complaint: POSSIBLE UTI Time Seen by Provider: 08/31/18 11:00 Primary Care Provider: FRANCISCO ALVARADO MD [Primary Care Provider] - Follow up as needed Mode of Arrival: Ambulatory Information source: Patient Notes: Patient is an otherwise healthy 83-year-old male who presents to the emergency department with complaints of bladder distention. Patient reports that he was at home 3 weeks ago from here with a urinary catheter in place due to similar issues, states that over the last day or so he has had decreased urinary output,'s this morning he states he had minimal amount in his bag but states he feels like his bladder is "going to explode". Patient denies any other symptoms to include abdominal pain, fever, nausea, vomiting. Patient reports that he has been drinking a lot of water trying to flush out his system however he states that he continues to have decreased output. Patient reports he is seen by Dr. Mcmillan, urology. TRAVEL OUTSIDE OF THE [place] 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 - Social History Smoking Status: Never Smoker Frequency of alcohol use: None Drug Abuse: None Family History: Hyperlipidemia Patient has suicidal ideation: No Patient has homicidal ideation: No - Past Medical History Cardiac Medical History: Reports: Hx Congestive Heart Failure, Hx Heart Attack - 20 years ago, Hx Hypercholesterolemia, Hx Hypertension Renal/ Medical History: Denies: Hx Peritoneal Dialysis Musculoskeletal Medical History: Reports Hx Arthritis Past Surgical History: Reports: Hx Cardiac Surgery - triple bypass/pacemaker, Hx Coronary Artery Bypass Graft Review of Systems - Review of Systems Constitutional: No symptoms reported EENT: No symptoms reported Cardiovascular: No symptoms reported Respiratory: No symptoms reported Gastrointestinal: No symptoms reported Genitourinary: Retention Male Genitourinary: No symptoms reported Musculoskeletal: No symptoms reported Skin: No symptoms reported Hematologic/Lymphatic: No symptoms reported Neurological/Psychological: No symptoms reported Physical Exam - Vital signs Vitals: Temp Pulse Resp BP Pulse Ox 97.6 F 85 16 128/50 H 97 08/31/18 10:40 08/31/18 10:40 08/31/18 10:40 08/31/18 10:40 08/31/18 10:40 - Notes Notes: PHYSICAL EXAMINATION: GENERAL: Well-appearing, well-nourished and in no acute distress. HEAD: Atraumatic, normocephalic. EYES: Pupils equal round and reactive to light, extraocular movements intact, sclera anicteric, conjunctiva are normal. ENT: Nares patent, oropharynx clear without exudates. Moist mucous membranes. NECK: Normal range of motion, supple without lymphadenopathy LUNGS: Breath sounds clear to auscultation bilaterally and equal. No wheezes rales or rhonchi. HEART: Regular rate and rhythm without murmurs ABDOMEN: Soft, mildly tender abdomen. Bladder distended. No guarding, no rebound. No masses appreciated. Genitourinary: Varma catheter in place. Small amount of yellow urine in leg bag. Musculoskeletal: Normal range of motion, no pitting or edema. No cyanosis. NEUROLOGICAL: Cranial nerves grossly intact. Normal speech, normal gait. Normal sensory, motor exams PSYCH: Normal mood, normal affect. SKIN: Warm, Dry, normal turgor, no rashes or lesions noted. Course - Re-evaluation Re-evalutation: Patient's existing Varma catheter was removed and new Varma catheter was inserted. 600 mL's of urine was immediately returned. A urine sample was sent to the lab for urinalysis. Urinalysis shows positive nitrites, large blood and large leukocyte esterase. Urine culture pending. Patient given 1 g ceftriaxone IM and will be started on p.o. antibiotics. Patient's physical examination is unremarkable, patient has absolutely no complaints other than the urinary retention. Encouraged close follow-up with his urologist. - Vital Signs Vital signs: Temp Pulse Resp BP Pulse Ox 97.2 F 69 16 127/60 H 95 08/31/18 13:34 08/31/18 13:34 08/31/18 13:34 08/31/18 13:34 08/31/18 13:34 - Laboratory Laboratory results interpreted by me: 08/31/18 11:30 Urine Blood LARGE H Urine Nitrite POSITIVE H Ur Leukocyte Esterase SMALL H Discharge - Discharge Clinical Impression: Urinary tract infection, Urinary retention Condition: Stable Disposition: HOME, SELF-CARE Instructions: Urinary Tract Infection ([facility]) Additional Instructions: As discussed, your urine appears to be infected today. Please follow-up with your urologist, call them tomorrow to schedule a follow-up appointment. Let them know you had to have your Varma catheter change due to a blood clot. A culture is pending on your urine, someone will call you in the next 2-3 days if there is any abnormality. Please return to the emergency department if you worsen in any way to include development of abdominal or flank pain, development of fever or any other symptom that is concerning to you. Prescriptions: Cephalexin [Cephalexin 500 MG Tablet] 1 tab PO QID #28 tablet Referrals: FRANCISCO ALVARADO MD [Primary Care Provider] - Follow up as needed
[2018-08-31 11:50] LABS: APPEARANCE,URINE CLEAR; BILIRUBIN,URINE NEGATIVE (NEGATIVE); COLOR,URINE YELLOW; GLUCOSE, URINE NEGATIVE (NEGATIVE); KETONES,URINE NEGATIVE (NEGATIVE); LEUKOCYTE ESTERASE,URINE SMALL (NEGATIVE); NITRITE,URINE POSITIVE (NEGATIVE); PROTEIN,URINE NEGATIVE (NEGATIVE); URINE SPECIFIC GRAVITY 1.008; UROBILINOGEN,URINE NEGATIVE mg/dL (<2.0)
[2018-08-31] MEDS ORDERED: LIDOCAINE 1% INJ-PF (10 MG/ML) 30 ML SDV IM ONE (12:36)
[2018-08-31] MEDS ORDERED: CEFTRIAXONE INJ 1000 MG VIAL IM ONE (12:36)
[2018-08-31 13:35] VITALS: BP 127/60
== END 2018-08-31 13:48 | disposition home or self-care (01) ==
LOC: ER 10:29
DX: N39.0 Urinary tract infection, site not specified (principal); R39.9 Unspecified symptoms and signs involving the genitourinary system; I10 Essential (primary) hypertension
CPT/HCPCS: 99284; 96372; 51702; 87086; 87088; 81001; 87186; J3490; J0696

== ENCOUNTER 2018-09-04 10:46 | Emergency (ER) | payer MEDICARE, BC ==
--- NOTE | 2018-09-04 11:59 | ER Document Report ---
ED Medical Screen (RME) - General Chief Complaint: Problem with Urinary Catheter Stated Complaint: CATHETER PROBLEMS Time Seen by Provider: 09/04/18 11:58 Primary Care Provider: FRANCISCO ALVARADO MD [Primary Care Provider] - Follow up as needed Mode of Arrival: Ambulatory Information source: Patient, Relative TRAVEL OUTSIDE OF THE [place] IN LAST 30 DAYS: No - HPI Patient complains to provider of: cardozo problem Onset: Yesterday - pt had cardozo placed here last week. Now states it is leaking and painful - Related Data Allergies/Adverse Reactions: No Known Allergies Allergy (Verified 08/31/18 10:34) Past Medical History - Past Medical History Cardiac Medical History: Reports: Hx Congestive Heart Failure, Hx Heart Attack - 20 years ago, Hx Hypercholesterolemia, Hx Hypertension Renal/ Medical History: Denies: Hx Peritoneal Dialysis Musculoskeltal Medical History: Reports Hx Arthritis Past Surgical History: Reports: Hx Cardiac Surgery - triple bypass/pacemaker, Hx Coronary Artery Bypass Graft - Immunizations History of Influenza Vaccine for 03/2017 - 08/2017 Season: No Physical Exam - Vital signs Vitals: Temp Pulse Resp BP Pulse Ox 97.5 F 85 18 131/58 H 94 09/04/18 10:52 09/04/18 10:52 09/04/18 10:52 09/04/18 10:52 09/04/18 10:52 Course - Vital Signs Vital signs: Temp Pulse Resp BP Pulse Ox 97.5 F 85 18 131/58 H 94 09/04/18 10:52 09/04/18 10:52 09/04/18 10:52 09/04/18 10:52 09/04/18 10:52 Doctor's Discharge - Discharge Referrals: FRANCISCO ALVARADO MD [Primary Care Provider] - Follow up as needed
[2018-09-04 12:53] LABS: APPEARANCE,URINE SLIGHTLY-CLOUDY; BILIRUBIN,URINE NEGATIVE (NEGATIVE); COLOR,URINE YELLOW; GLUCOSE, URINE NEGATIVE (NEGATIVE); KETONES,URINE NEGATIVE (NEGATIVE); LEUKOCYTE ESTERASE,URINE LARGE (NEGATIVE); NITRITE,URINE POSITIVE (NEGATIVE); PROTEIN,URINE 100 mg/dL (NEGATIVE); URINE SPECIFIC GRAVITY 1.009; UROBILINOGEN,URINE NEGATIVE mg/dL (<2.0)
[2018-09-04] MEDS ORDERED: LIDOCAINE 2% URO-JET 5 ML KIT MM ONE (13:57)
--- NOTE | 2018-09-04 13:59 | ER Document Report ---
ED GI/ - General Chief Complaint: Problem with Urinary Catheter Stated Complaint: CATHETER PROBLEMS Time Seen by Provider: 09/04/18 11:58 Primary Care Provider: TELMA ATKINSON MD [NO LOCAL MD] - 09/07/18 FRANCISCO ALVARADO MD [Primary Care Provider] - 09/07/18 Mode of Arrival: Ambulatory Information source: Patient Notes: Patient has a Varma catheter that was placed and has not been draining well at this morning. Patient feels as though he is having urinary retention symptoms and bladder discomfort. Patient has only a small amount of urine to his leg bag and states that he started having discomfort to the bladder area this morning. Patient did see his urologist yesterday in the office. Patient denies any fever. Patient denies any nausea or vomiting. TRAVEL OUTSIDE OF THE [place] IN LAST 30 DAYS: No - HPI Patient complains to provider of: Abdominal pain, Urinary retention. No: Hematuria, Testicular pain, Vomiting Onset: This morning Timing/Duration: Gradual Quality of pain: Pressure Pain Level: 3 Location: Suprapubic Associated symptoms: Other - Bladder discomfort. denies: Nausea, Vomiting Exacerbated by: Denies Relieved by: Denies Similar symptoms previously: Yes Recently seen / treated by doctor: Yes - Related Data Allergies/Adverse Reactions: No Known Allergies Allergy (Verified 08/31/18 10:34) Past Medical History - General Information source: Patient, Relative - Social History Smoking Status: Never Smoker Chew tobacco use (# tins/day): No Frequency of alcohol use: None Drug Abuse: None Lives with: Spouse/Significant other Family History: Hyperlipidemia Patient has suicidal ideation: No Patient has homicidal ideation: No - Past Medical History Cardiac Medical History: Reports: Hx Congestive Heart Failure, Hx Heart Attack - 20 years ago, Hx Hypercholesterolemia, Hx Hypertension Renal/ Medical History: Denies: Hx Peritoneal Dialysis Musculoskeletal Medical History: Reports Hx Arthritis Past Surgical History: Reports: Hx Cardiac Surgery - triple bypass/pacemaker, Hx Coronary Artery Bypass Graft Review of Systems - Review of Systems Constitutional: Recent illness - Recently treated for a UTI last week. denies: Fever EENT: No symptoms reported Cardiovascular: No symptoms reported Respiratory: No symptoms reported. denies: Cough Gastrointestinal: Abdominal pain. denies: Vomiting Genitourinary: Retention, Other - Indwelling Varma Male Genitourinary: No symptoms reported Musculoskeletal: No symptoms reported. denies: Back pain Skin: No symptoms reported Hematologic/Lymphatic: No symptoms reported Neurological/Psychological: No symptoms reported Physical Exam - Vital signs Vitals: Temp Pulse Resp BP Pulse Ox 97.5 F 85 18 131/58 H 94 09/04/18 10:52 09/04/18 10:52 09/04/18 10:52 09/04/18 10:52 09/04/18 10:52 - General General appearance: Appears well, Alert In distress: None - HEENT Head: Normocephalic, Atraumatic Eyes: Normal Conjunctiva: Normal Nasal: Normal Mouth/Lips: Normal - Respiratory Respiratory status: No respiratory distress Chest status: Nontender Breath sounds: Normal. No: Rales, Rhonchi, Stridor, Wheezing Chest palpation: Normal - Cardiovascular Rhythm: Regular Heart sounds: S1 appreciated, S2 appreciated - Abdominal Inspection: Normal Distension: Distended - distended bladder Tenderness: Tender - suprpubic Organomegaly: No organomegaly - Back Back: Normal, Nontender. No: CVA tenderness - Extremities General upper extremity: Normal inspection, Normal ROM General lower extremity: Normal inspection, Normal ROM - Neurological Neuro grossly intact: Yes Cognition: Normal [place] Coma Scale Eye Opening: Spontaneous [place] Coma Scale Verbal: Oriented [place] Coma Scale Motor: Obeys Commands [place] Coma Scale Total: 15 - Psychological Associated symptoms: Normal affect, Normal mood - Skin Skin Temperature: Warm Skin Moisture: Dry Skin Color: Normal Course - Re-evaluation Re-evalutation: 09/04/18 15:25 Patient had a Varma catheter replaced here in [facility] states there were some blood clots that were obstructing the catheter drainage. Patient had 700 mL's of urine empty out, patient feeling much better. Patient's urine culture results have returned from his previous ER visit demonstrating he does have a UTI with Enterococcus faecalis and Achromobacter xylosoxidans which is susceptible to Levaquin. Repeat culture will be obtained today. Patient's creatinine cleara nce is 22. Culture results nurse had been in contact with patient's urologist office and the nurse at that office today. Call was placed to the urology office for consultation with his urologist. Dr. atkinson will be given the message to return a phone call per his office staff 09/04/18 15:58 Consulted with patient's urologist office about patient presentation. Office staff report that patient has not wanted to follow-up with the urologist and has preferred to see his primary doctor regarding his need for indwelling Varma catheter. Office staff state that patient does have home health that comes out to evaluate the catheter and they do have orders to replace as well as a flush the catheter as needed. Office staff states that they did not advised at the last visit to discontinue the antibiotics that he had previously been on although they did receive a call today from the culture results nurse stating that the antibiotics that he was on would not treat his current infection. 09/04/18 16:[address] Wilkinson regarding patient presentation and diagnostic evaluation. Reviewed patient's previous renal function tests. Suspect patient had a slight increase in his creatinine due to obstruction although this appears to be resolved at this time as he is having urine outflow without any difficulty through the catheter. Patient will be given a dose of antibiotics and a pres cription for Levaquin which is susceptible for the bacteria that was grown out on his last urine culture. Will discuss with patient importance of flushing catheter if he is concerned that it is not draining. Patient advised that his home health nurse can perform this for him. Patient encouraged to follow-up with Dr. Brewer and to call his office on Friday for a follow-up appointment. Patient encouraged to return immediately over the weekend for any new or worsening symptoms. Patient without any fever with stable vital signs and appears comfortable at this time. No concern for sepsis. - Vital Signs Vital signs: Temp Pulse Resp BP Pulse Ox 97.4 F 62 16 137/72 H 98 09/04/18 17:25 09/04/18 17:25 09/04/18 17:25 09/04/18 17:25 09/04/18 17:25 - Laboratory Result Diagrams: 09/04/18 13:45 09/04/18 13:45 Laboratory results interpreted by me: 09/04/18 09/04/18 09/04/18 12:15 13:45 13:45 WBC 10.8 H RBC 4.26 L RDW 15.2 H Lymphocytes % 12.3 L BUN 49 H Creatinine 2.69 H Est GFR ( Amer) 27 L Est GFR (Non-Af Amer) 23 L Calcium 10.4 H Urine Protein 100 H Urine Blood LARGE H Urine Nitrite POSITIVE H Ur Leukocyte Esterase LARGE H 09/04/18 14:22 WBC RBC RDW Lymphocytes % BUN Creatinine Est GFR ( Amer) Est GFR (Non-Af Amer) Calcium Urine Protein Urine Blood LARGE H Urine Nitrite POSITIVE H Ur Leukocyte Esterase SMALL H 09/04/18 17:01 Labs- Entire Visit 09/04/18 09/04/18 09/04/18 12:15 13:45 13:45 WBC 10.8 H RBC 4.26 L Hgb 13.6 Hct 40.5 MCV 95 MCH 32.0 MCHC 33.6 RDW 15.2 H Plt Count 263 Seg Neutrophils % 74.2 Lymphocytes % 12.3 L Monocytes % 9.7 Eosinophils % 2.8 Basophils % 1.0 Absolute Neutrophils 8.0 Absolute Lymphocytes 1.3 Absolute Monocytes 1.0 Absolute Eosinophils 0.3 Absolute Basophils 0.1 Sodium 138.8 Potassium 4.4 Chloride 104 Carbon Dioxide 24 Anion Gap 11 BUN 49 H Creatinine 2.69 H Est GFR ( Amer) 27 L Est GFR (Non-Af Amer) 23 L Glucose 107 Calcium 10.4 H Urine Color YELLOW Urine Appearance SLIGHTLY-CLOUDY Urine pH 5.0 Ur Specific [place] 1.009 Urine Protein 100 H Urine Glucose (UA) NEGATIVE Urine Ketones NEGATIVE Urine Blood LARGE H Urine Nitrite POSITIVE H Urine Bilirubin NEGATIVE Urine Urobilinogen NEGATIVE Ur Leukocyte Esterase LARGE H Urine WBC (Auto) 126 Urine RBC (Auto) 89 U Hyaline Cast (Auto) 1 Urine Bacteria (Auto) TRACE Urine WBC Clumps FEW Squamous Epi Cells Auto Urine Mucus (Auto) RARE Urine Ascorbic Acid NEGATIVE 09/04/18 14:22 WBC RBC Hgb Hct MCV MCH MCHC RDW Plt Count Seg Neutrophils % Lymphocytes % Monocytes % Eosinophils % Basophils % Absolute Neutrophils Absolute Lymphocytes Absolute Monocytes Absolute Eosinophils Absolute Basophils Sodium Potassium Chloride Carbon Dioxide Anion Gap BUN Creatinine Est GFR ( Amer) Est GFR (Non-Af Amer) Glucose Calcium Urine Color YELLOW Urine Appearance CLEAR Urine pH 5.0 Ur Specific [place] 1.009 Urine Protein NEGATIVE Urine Glucose (UA) NEGATIVE Urine Ketones NEGATIVE Urine Blood LARGE H Urine Nitrite POSITIVE H Urine Bilirubin NEGATIVE Urine Urobilinogen NEGATIVE Ur Leukocyte Esterase SMALL H Urine WBC (Auto) 23 Urine RBC (Auto) 32 U Hyaline Cast (Auto) Urine Bacteria (Auto) TRACE Urine WBC Clumps Squamous Epi Cells Auto <1 Urine Mucus (Auto) RARE Urine Ascorbic Acid NEGATIVE Discharge - Discharge Clinical Impression: Urinary tract infection Qualifiers: Urinary tract infection type: site unspecified Hematuria presence: with hematuria Qualified Code(s): N39.0 - Urinary tract infection, site not specified Varma catheter problem Qualifiers: Encounter type: initial encounter Qualified Code(s): T83.9XXA - Unspecified complication of genitourinary prosthetic device, implant and graft, initial encounter Chronic kidney disease Qualifiers: Chronic kidney disease stage: unspecified stage Qualified Code(s): N18.9 - Chronic kidney disease, unspecified Condition: Stable Disposition: HOME, SELF-CARE Instructions: Varma Catheter Care ([facility]), Urinary Tract Infection ([facility]) Additional Instructions: Return immediately for any new or worsening symptoms, fever, increased pain, any problems with the drainage of your catheter or any concerning symptoms. Followup with your primary care provider, call Friday for an appointment. You were found to have a urinary tract infection. A repeat culture was performed today. Follow-up with your urologist for recheck, call Friday for an appointment Prescriptions: Levofloxacin [Levaquin 750 mg Tablet] 750 mg PO Q48HS #2 tablet Referrals: FRANCISCO ALVARADO MD [Primary Care Provider] - 09/07/18 TELMA ATKINSON MD [[facility] MD] - 09/07/18
[2018-09-04 14:00] LABS: ABSOLUTE BASOPHILS # (AUTO) 0.1 10^3/uL (0.0-0.2); ABSOLUTE EOSINOPHILS # (AUTO) 0.3 10^3/uL (0.0-0.6); ABSOLUTE LYMPHOCYTES (AUTO) 1.3 10^3/uL (0.5-4.7); EOSINOPHILS % (AUTO) 2.8 % (0-6); HEMATOCRIT 40.5 % (37.9-51.0); HEMOGLOBIN 13.6 g/dL (13.5-17.0); LYMPHOCYTES % (AUTO) 12.3 % (13-45); MEAN CORPUSCULAR HGB CONC 33.6 g/dL (32.0-36.0); MEAN CORPUSCULAR VOLUME 95 fl (80-97); MONOCYTES % (AUTO) 9.7 % (3-13); PLATELET COUNT 263 10^3/uL (150-450); RED BLOOD COUNT 4.26 10^6/uL (4.35-5.55); RED CELL DISTRIBUTION WIDTH 15.2 % (11.5-14.0); SEGMENTED NEUTROPHILS % (AUTO) 74.2 % (42-78); TOTAL CELLS COUNTED % (AUTO) 100 %; WHITE BLOOD COUNT 10.8 10^3/uL (4.0-10.5)
[2018-09-04 14:44] LABS: ANION GAP 11 (5-19); BLOOD UREA NITROGEN 49 mg/dL (7-20); CALCIUM 10.4 mg/dL (8.4-10.2); CARBON DIOXIDE 24 mmol/L (22-30); CHLORIDE 104 mmol/L (98-107); GLUCOSE 107 mg/dL (75-110); SODIUM 138.8 mmol/L (137-145)
[2018-09-04 14:46] LABS: POTASSIUM 4.4 mmol/L (3.6-5.0)
[2018-09-04 14:50] LABS: APPEARANCE,URINE CLEAR; BILIRUBIN,URINE NEGATIVE (NEGATIVE); COLOR,URINE YELLOW; GLUCOSE, URINE NEGATIVE (NEGATIVE); KETONES,URINE NEGATIVE (NEGATIVE); LEUKOCYTE ESTERASE,URINE SMALL (NEGATIVE); NITRITE,URINE POSITIVE (NEGATIVE); PROTEIN,URINE NEGATIVE (NEGATIVE); URINE SPECIFIC GRAVITY 1.009; UROBILINOGEN,URINE NEGATIVE mg/dL (<2.0)
[2018-09-04] MEDS ORDERED: LEVOFLOXACIN 750 MG TABLET PO ONE (15:22)
[2018-09-04 17:26] VITALS: BP 137/72
== END 2018-09-04 17:30 | disposition home or self-care (01) ==
LOC: ER 10:46
DX: T83.9XXA Unspecified complication of genitourinary prosthetic device, implant and graft, initial encounter (principal); Y84.6 Urinary catheterization as the cause of abnormal reaction of the patient, or of later complication, without mention of misadventure at the time of the procedure; N39.0 Urinary tract infection, site not specified; B95.2 Enterococcus as the cause of diseases classified elsewhere; B96.89 Other specified bacterial agents as the cause of diseases classified elsewhere; R31.9 Hematuria, unspecified; R33.9 Retention of urine, unspecified; I12.9 Hypertensive chronic kidney disease with stage 1 through stage 4 chronic kidney disease, or unspecified chronic kidney disease; N18.9 Chronic kidney disease, unspecified
CPT/HCPCS: 99283; 51702; 36415; 87086; 85025; 87088; 80048; 81001; 87186; A9270 ×2; J3490

== ENCOUNTER → 2019-01-09 | Outpatient (CLI) | payer MEDICARE, BC ==
[2019-01-09 10:01] LABS: HEMATOCRIT 38.7 % (37.9-51.0); HEMOGLOBIN 12.8 g/dL (13.5-17.0); MEAN CORPUSCULAR HGB CONC 33.1 g/dL (32.0-36.0); MEAN CORPUSCULAR VOLUME 94 fl (80-97); PLATELET COUNT 261 10^3/uL (150-450); RED BLOOD COUNT 4.12 10^6/uL (4.35-5.55); RED CELL DISTRIBUTION WIDTH 15.9 % (11.5-14.0); WHITE BLOOD COUNT 12.1 10^3/uL (4.0-10.5)
[2019-01-09 10:10] LABS: ANION GAP 12 (5-19); BLOOD UREA NITROGEN 46 mg/dL (7-20); CARBON DIOXIDE 23 mmol/L (22-30); CHLORIDE 106 mmol/L (98-107); GLUCOSE 109 mg/dL (75-110); PHOSPHORUS 3.8 mg/dL (2.5-4.5); POTASSIUM 4.1 mmol/L (3.6-5.0)
[2019-01-09 10:21] LABS: APPEARANCE,URINE SLIGHTLY-CLOUDY; BILIRUBIN,URINE NEGATIVE (NEGATIVE); COLOR,URINE YELLOW; GLUCOSE, URINE NEGATIVE (NEGATIVE); KETONES,URINE NEGATIVE (NEGATIVE); LEUKOCYTE ESTERASE,URINE MODERATE (NEGATIVE); NITRITE,URINE NEGATIVE (NEGATIVE); PROTEIN,URINE 30 mg/dL (NEGATIVE); URINE SPECIFIC GRAVITY 1.006; UROBILINOGEN,URINE NEGATIVE mg/dL (<2.0)
[2019-01-09 10:37] LABS: UR PRO/CREAT RATIO RESULT 0.7 mg/mg (0.0-0.2); URINE CREATININE 60.2 mg/dL (22-328)
== END ==
LOC: OD 09:27
PROVIDERS: ATTEND Internal Medicine Nephrology
DX: N18.3 Chronic kidney disease, stage 3 (moderate) (principal)
CPT/HCPCS: 36415; 80048; 81001; 82570; 83970; 84100; 84156; 85027

== ENCOUNTER → 2019-02-19 | Outpatient (CLI) | payer MEDICARE, BC ==
[2019-02-19 11:12] LABS: ABSOLUTE BASOPHILS # (AUTO) 0.1 10^3/uL (0.0-0.2); ABSOLUTE EOSINOPHILS # (AUTO) 0.7 10^3/uL (0.0-0.6); ABSOLUTE LYMPHOCYTES (AUTO) 1.5 10^3/uL (0.5-4.7); ABSOLUTE MONOCYTES (AUTO) 0.9 10^3/uL (0.1-1.4); ABSOLUTE NEUT (AUTO) 6.3 10^3/uL (1.7-8.2); BASOPHILS % (AUTO) 1.5 % (0-2); EOSINOPHILS % (AUTO) 7.1 % (0-6); HEMATOCRIT 38.8 % (37.9-51.0); HEMOGLOBIN 12.5 g/dL (13.5-17.0); LYMPHOCYTES % (AUTO) 16.1 % (13-45); MEAN CORPUSCULAR HEMOGLOBIN 29.5 pg (27.0-33.4); MEAN CORPUSCULAR HGB CONC 32.3 g/dL (32.0-36.0); MEAN CORPUSCULAR VOLUME 91 fl (80-97); MONOCYTES % (AUTO) 9.7 % (3-13); PLATELET COUNT 268 10^3/uL (150-450); RED BLOOD COUNT 4.25 10^6/uL (4.35-5.55); RED CELL DISTRIBUTION WIDTH 15.9 % (11.5-14.0); SEGMENTED NEUTROPHILS % (AUTO) 65.6 % (42-78); TOTAL CELLS COUNTED % (AUTO) 100 %; WHITE BLOOD COUNT 9.6 10^3/uL (4.0-10.5)
[2019-02-19 11:29] LABS: ALBUMIN 3.6 g/dL (3.5-5.0); ANION GAP 14 (5-19); BLOOD UREA NITROGEN 47 mg/dL (7-20); CARBON DIOXIDE 25 mmol/L (22-30); CHLORIDE 98 mmol/L (98-107); GLUCOSE 108 mg/dL (75-110); PHOSPHORUS 4.4 mg/dL (2.5-4.5); POTASSIUM 4.5 mmol/L (3.6-5.0)
== END ==
LOC: OD 09:30
PROVIDERS: ATTEND Internal Medicine Nephrology
DX: N18.3 Chronic kidney disease, stage 3 (moderate) (principal); I50.9 Heart failure, unspecified; R80.9 Proteinuria, unspecified; N25.0 Renal osteodystrophy; D63.1 Anemia in chronic kidney disease
CPT/HCPCS: 36415; 80069; 85025

== ENCOUNTER 2019-03-07 11:53 | Emergency (ER) | payer MEDICARE, BC ==
[2019-03-07 12:58] LABS: ALBUMIN 3.3 g/dL (3.5-5.0); ALKALINE PHOSPHATASE 96 U/L (38-126); ANION GAP 12 (5-19); ASPARTATE AMINO TRANSFERASE 15 U/L (17-59); BILIRUBIN,DIRECT 0.2 mg/dL (0.0-0.4); BLOOD UREA NITROGEN 57 mg/dL (7-20); CALCIUM 10.2 mg/dL (8.4-10.2); CARBON DIOXIDE 20 mmol/L (22-30); CHLORIDE 109 mmol/L (98-107); CREATINE KINASE 30 U/L (55-170); GLUCOSE 123 mg/dL (75-110); POTASSIUM 4.3 mmol/L (3.6-5.0); TOTAL PROTEIN 5.9 g/dL (6.3-8.2)
--- NOTE | 2019-03-07 12:59 | RADIOLOGY REPORT (SQ) ---
EXAM DESCRIPTION: CHEST 2 VIEWS COMPLETED DATE/TIME: 03/07/2019 12:48 pm REASON FOR STUDY: chest pain COMPARISON: Chest films 08/13/2018, 07/27/2018, 12/22/2017, 05/24/2017 EXAM PARAMETERS: NUMBER OF VIEWS: two views TECHNIQUE: Digital Frontal and Lateral radiographic views of the chest acquired. RADIATION DOSE: NA LIMITATIONS: none FINDINGS: LUNGS AND PLEURA: Chronic elevation right hemidiaphragm. No acute infiltrates. No pleura l effusion or pneumothorax. MEDIASTINUM AND HILAR STRUCTURES: No masses or contour abnormalities. HEART AND VASCULAR STRUCTURES: Mild cardiomegaly. Old sternotomy and CABG BONES: No acute findings. HARDWARE: Left-sided dual lead pacemaker unchanged OTHER: No other significant finding. IMPRESSION: No acute findings TECHNICAL DOCUMENTATION: JOB ID: [id number] [employer]- All Rights Reserved Reading location - IP/workstation name: [email or web address]
[2019-03-07 13:10] LABS: CREATINE KINASE MB 1.76 ng/mL (<4.55)
[2019-03-07 13:17] LABS: ABSOLUTE BASOPHILS # (AUTO) 0.1 10^3/uL (0.0-0.2); ABSOLUTE EOSINOPHILS # (AUTO) 0.3 10^3/uL (0.0-0.6); ABSOLUTE LYMPHOCYTES (AUTO) 0.8 10^3/uL (0.5-4.7); ABSOLUTE MONOCYTES (AUTO) 0.5 10^3/uL (0.1-1.4); ABSOLUTE NEUT (AUTO) 7.2 10^3/uL (1.7-8.2); BASOPHILS % (AUTO) 1.1 % (0-2); EOSINOPHILS % (AUTO) 2.9 % (0-6); HEMATOCRIT 36.5 % (37.9-51.0); HEMOGLOBIN 11.6 g/dL (13.5-17.0); LYMPHOCYTES % (AUTO) 8.6 % (13-45); MEAN CORPUSCULAR HEMOGLOBIN 28.9 pg (27.0-33.4); MEAN CORPUSCULAR HGB CONC 31.8 g/dL (32.0-36.0); MEAN CORPUSCULAR VOLUME 91 fl (80-97); MONOCYTES % (AUTO) 5.4 % (3-13); PLATELET COUNT 215 10^3/uL (150-450); RED BLOOD COUNT 4.01 10^6/uL (4.35-5.55); RED CELL DISTRIBUTION WIDTH 16.8 % (11.5-14.0); TOTAL CELLS COUNTED % (AUTO) 100 %; WHITE BLOOD COUNT 8.7 10^3/uL (4.0-10.5)
[2019-03-07 13:18] LABS: TROPONIN I 0.067 ng/mL
[2019-03-07] MEDS ORDERED: ENOXAPARIN SODIUM INJ 80 MG/0.8 ML DISP.SYRIN SUBCUT ONE (17:49)
--- NOTE | 2019-03-07 19:20 | ER Document Report ---
ED General - General Chief Complaint: Chest Pain Stated Complaint: CHEST PAIN Time Seen by Provider: 03/07/19 12:29 Primary Care Provider: FRANCISCO ALVARADO MD [Primary Care Provider] - Follow up as needed Notes: 83 year old male brought in by EMS for V-tach. Patient was shocked by his internal defibrillator at home and then called 911 because he was still having chest pain. EMS was hesitant to cardiovert the patient so they initially gave 80 mg of lidocaine IV and then immediately followed it with synchronized cardiov ersion at 100 J. This immediately converted the patient to a paced rhythm at 100 bpm. Patient states his pain then resolved and he has been asymptomatic since then. Admitted that he had some small amount of shortness of breath with the symptoms prior to cardioversion and now his symptoms have resolved. TRAVEL OUTSIDE OF THE [place] 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 - Social History Smoking Status: Never Smoker Chew tobacco use (# tins/day): No Frequency of alcohol use: Occasional Drug Abuse: None Family History: Hyperlipidemia Patient has suicidal ideation: No Patient has homicidal ideation: No - Past Medical History Cardiac Medical History: Reports: Hx Congestive Heart Failure, Hx Heart Attack - 20 years ago, Hx Hypercholesterolemia, Hx Hypertension Renal/ Medical History: Denies: Hx Peritoneal Dialysis Musculoskeletal Medical History: Reports Hx Arthritis Past Surgical History: Reports: Hx Cardiac Surgery - triple bypass/pacemaker, Hx Coronary Artery Bypass Graft Review of Systems - Review of Systems Constitutional: See HPI, Diaphoresis EENT: No symptoms reported Cardiovascular: See HPI Respiratory: See HPI -: Yes All other systems reviewed and negative Physical Exam - Vital signs Vitals: Pulse Ox 98 03/07/19 12:03 - Notes Notes: GENERAL: Alert, interacts well. No acute distress. HEAD: Normocephalic, atraumatic EYES: Pupils equal, round and reactive to light, extraocular movements intact. ENT: Oral mucosa moist, tongue midline. NECK: Full range of motion, supple, trachea midline. LUNGS: Clear to auscultation bilaterally, no wheezes, rales or rhonchi, no respiratory distress. HEART: Regular rate and rhythm, no murmurs, gallops, rubs. ABDOMEN: Soft, nontender, nondistended, bowel sounds present in all 4 quadrants. EXTREMITIES: Moves all 4 extremities spontaneously, no edema, radial and dorsalis pedis pulses 2/4 bilaterally. No cyanosis. NEUROLOGICAL: Alert and oriented x3, normal speech. PSYCH: Normal mood, normal affect. SKIN: Warm, Dry, normal turgor, no rashes or lesions noted. Course - Re-evaluation Re-evalutation: 03/07/19 19:19 Seeing as the patient was electrically cardioverted quite quickly after being given the lidocaine I doubt the lidocaine actually helped to convert this patient's rhythm. No lidocaine has been given here and he has remained in a organized rhythm that is paced. No further symptoms here. Hemoglobin is 11.6, platelets are normal, CMP shows CO2 slightly low at 20, BUN and creatinine are 57 and 2.1 which is close to this patient's baseline, troponin was initially 0.067 and then jumped to 8.2 to 4 hours later. EKG is nonischemic. Chest x-ray shows no acute process. Patient continues to have no symptoms. Discussed patient with Dr. Frances from [facility] who agrees to accept the patient to her service. Patient's cardiology follow-up as routinely there. Patient was given a dose of Lovenox for presumed non-STEMI. - Vital Signs Vital signs: Temp Pulse Resp BP Pulse Ox 22 H 105/69 99 03/07/19 16:01 03/07/19 16:00 03/07/19 16:01 - Laboratory Result Diagrams: 03/07/19 12:30 03/07/19 12:30 Laboratory results interpreted by me: 03/07/19 03/07/19 12:30 12:30 RBC 4.01 L Hgb 11.6 L Hct 36.5 L MCHC 31.8 L RDW 16.8 H Lymph % (Auto) 8.6 L Seg Neutrophils % 82.0 H Chloride 109 H Carbon Dioxide 20 L BUN 57 H Creatinine 2.41 H Est GFR ( Amer) 31 L Est GFR (MDRD) Non-Af 26 L Glucose 123 H AST 15 L Creatine Kinase 30 L Total Protein 5.9 L Albumin 3.3 L - EKG Interpretation by Me Additional EKG results interpreted by me: 03/07/19 19:20 EKG shows atrially sensed ventricularly paced rhythm at a rate of 100, no ST segment elevations or depressions, no T wave inversions per my interpretation. Discharge - Discharge Clinical Impression: Ventricular tachycardia, ICD (implantable cardioverter-defibrillator) discharge, NSTEMI (non-ST elevated myocardial infarction), CKD (chronic kidney disease), stage IV Condition: Fair Disposition: [facility] Referrals: FRANCISCO ALVARADO MD [Primary Care Provider] - Follow up as needed
--- NOTE | 2019-03-08 00:50 | EKG REPORT ---
SEVERITY:- ABNORMAL ECG - ATRIAL-SENSED VENTRICULAR-PACED RHYTHM : Confirmed by: Brook Martin 08-Mar-2019 00:49:20
[2019-03-08 09:07] LABS: HEMOGLOBIN 11.9 g/dL (13.5-17.0); MEAN CORPUSCULAR HEMOGLOBIN 28.9 pg (27.0-33.4); MEAN CORPUSCULAR HGB CONC 32.1 g/dL (32.0-36.0); MEAN CORPUSCULAR VOLUME 90 fl (80-97); PLATELET COUNT 226 10^3/uL (150-450); RED CELL DISTRIBUTION WIDTH 16.5 % (11.5-14.0)
[2019-03-08 09:28] LABS: ANION GAP 8 (5-19); BLOOD UREA NITROGEN 56 mg/dL (7-20); CALCIUM 10.3 mg/dL (8.4-10.2); CARBON DIOXIDE 25 mmol/L (22-30); CHLORIDE 108 mmol/L (98-107); CREATINE KINASE 114 U/L (55-170); GLUCOSE 91 mg/dL (75-110); POTASSIUM 5.1 mmol/L (3.6-5.0)
[2019-03-08 09:40] LABS: CREATINE KINASE MB 10.2 ng/mL (<4.55); TROPONIN I 6.26 ng/mL
[2019-03-08 09:46] LABS: FREE T4 (FREE THYROXINE) 1.19 ng/dL (0.78-2.19)
[2019-03-08 09:57] LABS: ABSOLUTE LYMPHOCYTES# (MANUAL) 1.8 10^3/uL (0.5-4.7); BASOPHILS % (MANUAL) 2 % (0-2); EOSINOPHILS % (MANUAL) 7 % (0-6); LYMPHOCYTES % (MANUAL) 23 % (13-45); MONOCYTES % (MANUAL) 12 % (3-13); SEGMENTED NEUTROPHILS % (MAN) 56 % (42-78); TOTAL CELLS COUNTED 100
[2019-03-08 09:58] LABS: ANISOCYTOSIS SLIGHT; PLATELET COMMENT ADEQUATE; POIKILOCYTOSIS SLIGHT
[2019-03-08 10:00] LABS: THYROID STIMULATING HORMONE 3.74 uIU/mL (0.47-4.68)
--- NOTE | 2019-03-08 10:05 | ER Document Report ---
Doctor's Note Notes: 03/08/19 10:04 Patient seen and examined. He was sent here yesterday with sustained V. tach, cardioverted on his own and then by EMS. The patient has had no chest pain since arrival. His troponin maxed over 8, has been trending back down. I spoke with Dr. Frances, physician at [facility]. The patient was accepted there in transfer. She has a certain labs be ordered, which are pending at this time. Patient again denies any chest pain this morning. He is feeling well. He is medically stable for transfer to [facility].
[2019-03-08 10:28] VITALS: BP 119/59
== END 2019-03-08 10:30 | disposition short-term general hospital (02) ==
LOC: ER 11:53
DX: I47.2 Ventricular tachycardia (principal); I21.4 Non-ST elevation (NSTEMI) myocardial infarction; R07.9 Chest pain, unspecified; Z95.810 Presence of automatic (implantable) cardiac defibrillator; I25.2 Old myocardial infarction; I13.0 Hypertensive heart and chronic kidney disease with heart failure and stage 1 through stage 4 chronic kidney disease, or unspecified chronic kidney disease; N18.4 Chronic kidney disease, stage 4 (severe); I50.9 Heart failure, unspecified
CPT/HCPCS: 93005; 99285; 96374; 36415; 84439; 82553; 82550; 83735; 84443; 85025; 80048; 80053; 84484; 71046; 93010; J1650

== ENCOUNTER 2019-03-29 21:35 | Observation (INO) | payer MEDICARE, BC ==
--- NOTE | 2019-03-29 21:59 | ER Document Report ---
ED General - General Stated Complaint: CHEST PAIN Time Seen by Provider: 03/29/19 21:50 Primary Care Provider: FRANCISCO ALVARADO MD [Primary Care Provider] - Follow up as needed TRAVEL OUTSIDE OF THE [place] IN LAST 30 DAYS: No - HPI Notes: 83-year-old male with chronic bypass 30 years ago, AICD/pacer, presents with chest pain. Patient had approximate 4 recurrent episodes of the last few months with chest pain. Describes left anterolateral chest pain, relatively constant for 12 hours but gone now when he received aspirin from EMS. Gradual onset, nonradiating, nonexertional, no fever, chills or sweats. No cough. Moderate intensity, nonradiating. No other modifying factors, no other associated symptoms, no other provocative or palliative factors. - Related Data Allergies/Adverse Reactions: No Known Allergies Allergy (Verified 08/31/18 10:34) Past Medical History - Social History Smoking Status: Unknown if Ever Smoked Family History: Reviewed & Not Pertinent, Hyperlipidemia - Medical History Notes: Prior triple-vessel bypass - Past Medical History Cardiac Medical History: Reports: Hx Congestive Heart Failure, Hx Heart Attack - 20 years ago, Hx Hypercholesterolemia, Hx Hypertension Renal/ Medical History: Denies: Hx Peritoneal Dialysis Musculoskeletal Medical History: Reports Hx Arthritis Past Surgical History: Reports: Hx Cardiac Surgery - triple bypass/pacemaker, Hx Coronary Artery Bypass Graft Review of Systems - Review of Systems Notes: Review of systems as in the history of present illness, otherwise negative x 10 systems. Physical Exam - Vital signs Vitals: Temp Resp BP Pulse Ox 97.9 F 24 H 124/74 96 03/29/19 22:00 03/29/19 22:00 03/29/19 22:00 03/29/19 22:00 - Notes Notes: General: Well developed . HEENT: Normocephalic, atraumatic. Pupils equal round reactive to light. No JVD. Chest: No trauma. Respiratory: Good air exchange, normal excursion. Cardiac: Regular rhythm. No murmurs or gallops. Abdomen: Soft, benign. Nondistended. Nontender. Back: No asymmetry or gross abnormality. Motor: Grossly normal power and tone. Neurologic: Alert, nonfocal. Cranial nerves II-12 are intact. Sensation intact. Vascular: Well perfused. Normal peripheral pulses. Skin: No petechiae or purpura. Course - Re-evaluation Re-evalutation: 03/29/19 21:59 83-year-old male with chest pain, somewhat prolonged ongoing over the last 12 hours. Now pain-free. She will consider line ACS, typical chest pain, esophageal spasm, less likely pneumonia, doubt pneumothorax. Plan proceed with record review, labs, biomarkers, he is already received 325 mg of aspirin. Will check chest x-ray, EKG is nonischemic and nonspecific. 03/30/19 02:49 Chest x-ray is unremarkable. Twelve-lead ECG shows a paced rhythm. Patient is remained pain free throughout his ED course. However, his initial troponin was 0.015, approximately 2-hour delta has doubled to 0.031. Although this is still under the threshold for abnormal, it has increased and is an abnormal delta. Given these findings, he will be admitted to the hospital service for continued training and evaluation. Remains pain-free at this time and hemodynamic is stable. Continues to describe the pain he experiences a substernal pressure 03/30/19 02:50 - Vital Signs Vital signs: Temp Pulse Resp BP Pulse Ox 97.9 F 24 H 124/74 96 03/29/19 22:00 03/29/19 22:00 03/29/19 22:00 03/29/19 22:00 - Laboratory Result Diagrams: 03/29/19 21:50 03/29/19 21:50 Laboratory results interpreted by me: 03/29/19 03/29/19 21:50 21:50 RBC 3.83 L Hgb 11.0 L Hct 34.8 L MCHC 31.7 L RDW 18.0 H Eos % (Auto) 7.1 H Chloride 110 H Carbon Dioxide 21 L BUN 31 H Creatinine 2.06 H Est GFR ( Amer) 37 L Est GFR (MDRD) Non-Af 31 L Glucose 135 H AST 13 L Creatine Kinase 27 L Total Protein 5.5 L Albumin 3.0 L - EKG Interpretation by Me Additional EKG results interpreted by me: 03/29/19 22:00 Twelve-lead ECG shows AV paced rhythm, probably widened QRS, no evidence of acute ischemic changes, further interpretation not possible Discharge - Discharge Clinical Impression: Chest pain Qualifiers: Chest pain type: other chest pain Qualified Code(s): R07.89 - Other chest pain; R07.8 - Other chest pain Condition: Stable Disposition: ADMITTED OBSERVATION Unit Admitted: Telemetry Referrals: FRANCISCO ALVARADO MD [Primary Care Provider] - Follow up as needed
[2019-03-29 22:05] LABS: ABSOLUTE BASOPHILS # (AUTO) 0.1 10^3/uL (0.0-0.2); ABSOLUTE EOSINOPHILS # (AUTO) 0.6 10^3/uL (0.0-0.6); ABSOLUTE LYMPHOCYTES (AUTO) 1.3 10^3/uL (0.5-4.7); ABSOLUTE MONOCYTES (AUTO) 0.7 10^3/uL (0.1-1.4); ABSOLUTE NEUT (AUTO) 5.4 10^3/uL (1.7-8.2); EOSINOPHILS % (AUTO) 7.1 % (0-6); HEMATOCRIT 34.8 % (37.9-51.0); LYMPHOCYTES % (AUTO) 15.5 % (13-45); MEAN CORPUSCULAR HEMOGLOBIN 28.7 pg (27.0-33.4); MEAN CORPUSCULAR HGB CONC 31.7 g/dL (32.0-36.0); MEAN CORPUSCULAR VOLUME 91 fl (80-97); MONOCYTES % (AUTO) 9.3 % (3-13); PLATELET COUNT 201 10^3/uL (150-450); RED BLOOD COUNT 3.83 10^6/uL (4.35-5.55); SEGMENTED NEUTROPHILS % (AUTO) 67.1 % (42-78); TOTAL CELLS COUNTED % (AUTO) 100 %; WHITE BLOOD COUNT 8.1 10^3/uL (4.0-10.5)
--- NOTE | 2019-03-29 22:26 | RADIOLOGY REPORT (SQ) ---
XR CHEST 1 VIEW EXAM DATE: 03/29/2019 9:36 PM CDT HISTORY: CP. COMPARISON: 03/07/2019 FINDINGS: Stable postsurgical changes of the heart with multi lead left chest wall pacemaker intact. No consolidation, pleural effusion, or pneumothorax is seen. No acute bony findings. The right hemidiaphragm is elevated, unchanged. IMPRESSION: No evidence of acute cardiopulmonary disease. Stable postsurgical changes of the heart.
[2019-03-29 22:36] LABS: ALKALINE PHOSPHATASE 73 U/L (38-126); ANION GAP 9 (5-19); ASPARTATE AMINO TRANSFERASE 13 U/L (17-59); BILIRUBIN,DIRECT 0.2 mg/dL (0.0-0.4); BILIRUBIN,TOTAL 0.6 mg/dL (0.2-1.3); BLOOD UREA NITROGEN 31 mg/dL (7-20); CALCIUM 9.5 mg/dL (8.4-10.2); CARBON DIOXIDE 21 mmol/L (22-30); CHLORIDE 110 mmol/L (98-107); CREATINE KINASE 27 U/L (55-170); GLUCOSE 135 mg/dL (75-110); POTASSIUM 4.8 mmol/L (3.6-5.0); TOTAL PROTEIN 5.5 g/dL (6.3-8.2)
[2019-03-29 22:49] LABS: CREATINE KINASE MB 0.68 ng/mL (<4.55); TROPONIN I 0.015 ng/mL
[2019-03-30] MEDS ORDERED: MAGNESIUM HYDROXIDE SUSP 30 ML UDCUP PO PRN (04:53)
[2019-03-30] MEDS ORDERED: ONDANSETRON HCL INJ/PF 4 MG/2 ML SDV IV PRN (04:53)
[2019-03-30] MEDS ORDERED: MAG HYDROX/AL HYDROX/SIMETH SUSP 30 ML UDCUP PO PRN (04:53)
[2019-03-30] MEDS ORDERED: PANTOPRAZOLE SODIUM 40 MG TABLET.DR PO SCH (06:00)
[2019-03-30] MEDS: HEPARIN SOD (PORCINE) 5,000 UNIT/ML 1 ML VIAL SUBCUT SCH ×3 (06:07→22:25)
--- NOTE | 2019-03-30 07:24 | PDOC H&P ---
History of Present Illness Admission Date/PCP: 03/30/19 03:40 FRANCISCO ALVARADO MD Patient complains of: Chest pain History of Present Illness: LUDMILA HERMOSILLO is a 83 year old male who presents the emergency room with acute chest pain. He admits developing chest pain approximately 12 hours prior to his arrival in the emergency room via EMS. His chest pain developed gradually as a constant pressure in the left anterolateral chest becoming moderate at its greatest intensity without radiation. He denies other associated or accompanying signs and symptoms. He admits 3 prior similar pain e pisodes within the last 3 months. He has not identified any aggravating or ameliorating factors for his chest pain. He called EMS to bring him to the hospital and on the transport he was given aspirin and within 30 minutes his chest pain had resolved. In the ER he was found to have an EKG and cardiac enzymes which revealed no definitive evidence of acute myocardial ischemia or injury however his troponin levels were trending upward and he was therefore admitted to observation bed assignment status for further evaluation and treatment. Past Medical History Cardiac Medical History: Reports: Congestive Heart Failure, Coronary Artery Disease, Myocardial Infarction - 20 years ago, Hyperlipidema, Hypertension Denies: Atrial Fibrillation Pulmonary Medical History: Denies: Asthma, Chronic Obstructive Pulmonary Disease (COPD) EENT Medical History: Reports: Eyes - Glasses Denies: Ears - Hearing aids Neurological Medical History: Denies: Hemorrhagic CVA, Ischemic CVA, Seizures Endocrine Medical History: Reports: Diabetes Mellitus Type 2 - Diet control Denies: Diabetes Mellitus Type 1, Hyperthyroidism, Hypothyroidism Renal/ Medical History: Reports: Chronic Kidney Disease Denies: Nephrolithiasis Malignancy Medical History: Reports: None GI Medical History: Denies: Cirrhosis, Hepatitis Musculoskeltal Medical History: Reports: Arthritis, Gout Skin Medical History: Denies: Eczema, Psoriasis Psychiatric Medical History: Denies: Alcohol Dependency, Substance Abuse, Tobacco Dependency Traumatic Medical History: Reports: None Hematology: Denies: Anemia, Bleeding Tendencies Infectious Medical History: Reports: None Past Surgical History Past Surgical History: Reports: Coronary Artery Bypass Graft, Internal Defibrillator - Pacemaker, Social History Information Source: Patient Lives with: Spouse/Significant other Smoking Status: Never Smoker Electronic Cigarette use?: No Frequency of Alcohol Use: None Hx Recreational Drug Use: No Drugs: None Hx Prescription Drug Abuse: No - Advance Directive Resuscitation Status: Full Code Surrogate healthcare decision maker:: Harika Hermosillo Family History Family History: Hyperlipidemia Parental Family History Reviewed: Yes Children Family History Reviewed: No Sibling(s) Family History Reviewed.: Yes Medication/Allergy Home Medications: Alendronate Sodium [Fosamax 70 mg Tablet] 70 mg PO WE@1000 12/22/17 Allopurinol [Zyloprim 100 mg Tablet] 100 mg PO DAILY 12/22/17 Aspirin [Aspirin EC] 81 mg PO DAILY 12/22/17 Atorvastatin Calcium [Lipitor 40 mg Tablet] 40 mg PO QHS 12/22/17 Colchicine [Colcrys 0.6 mg Tablet] 0.6 mg PO BID 12/22/17 Metoprolol Succinate [Toprol Xl 50 mg Tab.sr] 50 mg PO DAILY 12/22/17 Nifedipine [Nifedipine ER] 30 mg PO DAILY 12/22/17 Prednisone [Deltasone 5 mg Tablet] 15 mg PO DAILY 12/22/17 Spironolactone [Aldactone 25 mg Tablet] 25 mg PO DAILY 12/22/17 Tramadol HCl/Acetaminophen [Ultracet 37.5 mg/325 mg Tablet] 1 tab PO BIDP PRN 12/22/17 Valsartan [Diovan 160 mg Tablet] 160 mg PO DAILY 12/22/17 Cephalexin [Cephalexin 500 MG Tablet] 1 tab PO QID #28 tablet 08/31/18 Levofloxacin [Levaquin 750 mg Tablet] 750 mg PO Q48HS #2 tablet 09/04/18 Allergies/Adverse Reactions: No Known Allergies Allergy (Verified 08/31/18 10:34) Review of Systems Constitutional: ABSENT: chills, fever(s) Eyes: ABSENT: visual disturbances, other - Eye pain Ears: ABSENT: hearing changes, other - Ear pain Nose, Mouth, and Throat: ABSENT: headache(s), mouth pain, sore throat Cardiovascular: PRESENT: as per HPI, chest pain. ABSENT: dyspnea on exertion, edema, orthropnea, palpitations Respiratory: ABSENT: cough, dyspnea Gastrointestinal: ABSENT: abdominal pain, constipation, diarrhea, nausea, vomiting Genitourinary: ABSENT: dysuria, hematuria Musculoskeletal: ABSENT: back pain, joint swelling, muscle weakness Integumentary: ABSENT: pruritus, rash Neurological: ABSENT: confusion, convulsions, focal weakness, memory loss, syncope Psychiatric: ABSENT: anxiety, depression Endocrine: ABSENT: cold intolerance, heat intolerance Hematologic/Lymphatic: ABSENT: easy bruising, lymphadenopathy Allergic/Immunologic: ABSENT: seasonal rhinorrhea Physical Exam Vital Signs: Temp Pulse Resp BP Pulse Ox 97.9 F 24 H 124/74 96 03/29/19 22:00 03/29/19 22:00 03/29/19 22:00 03/29/19 22:00 General appearance: PRESENT: no acute distress, cooperative Head exam: PRESENT: atraumatic, normocephalic Eye exam: PRESENT: conjunctiva pink. ABSENT: conjunctival injection, scleral icterus Ear exam: PRESENT: normal external ear exam. ABSENT: bleeding, drainage Mouth exam: PRESENT: dry mucosa, neck supple Neck exam: ABSENT: thyromegaly, tracheal deviation Respiratory exam: PRESENT: clear to auscultation juliane, unlabored. ABSENT: symmetrical Cardiovascular exam: PRESENT: RRR. ABSENT: clicks, gallop, rubs Pulses: PRESENT: normal radial pulses, normal dorsalis pedis pul Vascular exam: PRESENT: normal capillary refill. ABSENT: pallor GI/Abdominal exam: PRESENT: normal bowel sounds, soft Rectal exam: PRESENT: deferred Extremities exam: ABSENT: joint swelling, pedal edema Musculoskeletal exam: ABSENT: deformity, dislocation Neurological exam: ABSENT: alert, oriented to person, oriented to place, oriente d to time, oriented to situation, CN II-XII grossly intact, motor sensory deficit Psychiatric exam: ABSENT: appropriate affect, normal mood Skin exam: PRESENT: dry, intact, warm. ABSENT: jaundice, rash, urticaria Results Laboratory Results: 03/29/19 21:50 03/29/19 21:50 03/29/19 03/29/19 21:50 21:50 WBC 8.1 RBC 3.83 L Hgb 11.0 L Hct 34.8 L MCV 91 MCH 28.7 MCHC 31.7 L RDW 18.0 H Plt Count 201 Seg Neutrophils % 67.1 Sodium 140.3 Potassium 4.8 Chloride 110 H Carbon Dioxide 21 L Anion Gap 9 BUN 31 H Creatinine 2.06 H Est GFR ( Amer) 37 L Glucose 135 H Calcium 9.5 Total Bilirubin 0.6 AST 13 L Alkaline Phosphatase 73 Total Protein 5.5 L Albumin 3.0 L 03/29/19 03/29/19 03/30/19 21:50 21:50 01:43 Creatine Kinase 27 L CK-MB (CK-2) 0.68 Troponin I 0.015 0.031 Impressions: Chest X-Ray 03/29/19 21:36 IMPRESSION: No evidence of acute cardiopulmonary disease. Stable postsurgical changes of the heart. Assessment and Plan - Diagnosis (1) Chest pain Qualifiers: Chest pain type: unspecified Qualified Code(s): R07.9 - Chest pain, unspecified Is this a current diagnosis for this admission?: Yes Plan: Patient will be admitted observation status and serial cardiac enzymes will be obtained. Further testing or treatment will be based on the results of his enzymatic testing. His pain will be treated with sublingual nitroglycerin for morphine sulfate 2 to 4 mg IV every 2 hours on a as needed basis using a sliding scale for dosage. (2) Coronary artery disease Qualifiers: Coronary Disease-Associated Artery/Lesion type: bypass graft [place] vs. transplanted heart: [place] heart Associated angina: with unspecified angina Qualified Code(s): I25.709 - Atherosclerosis of coronary artery bypass graft(s), unspecified, with unspecified angina pectoris Is this a current diagnosis for this admission?: Yes Plan: Patient will be monitored in a telemetry bed and cardiac enzymes will be obtained on a serial basis for a more definitive evaluation of his chest pain. (3) Hypertension Qualifiers: Hypertension type: essential hypertension Qualified Code(s): I10 - Essential (primary) hypertension Is this a current diagnosis for this admission?: Yes Plan: Patient's blood pressure be monitored closely throughout his hospital course and he will be restarted on his usual antihypertensive regiment as soon as his medication record has been verified. He will be on a cardiac diet. (4) Hyperlipidemia Qualifiers: Hyperlipidemia type: unspecified Qualified Code(s): E78.5 - Hyperlipidemia, unspecified Is this a current diagnosis for this admission?: Yes Plan: Patient will be continued on his usual lipid lowering therapy and a cardiac diet. (5) Chronic kidney disease, stage IV (severe) Is this a current diagnosis for this admission?: Yes Plan: Patient's renal functions will be monitored with serial metabolic profiles. - Time Time Spent with patient: 25-34 minutes Medications reviewed and adjusted accordingly: Yes Anticipated discharge: Home - Inpatient Certification Based on my medical assessment, after consideration of the patient's comorbidities, presenting symptoms, or acuity I expect that the services needed warrant INPATIENT care.: No I certify that my determination is in accordance with my understanding of Medicare's requirements for reasonable and necessary INPATIENT services [42 CFR 412.3e].: No Medical Necessity: Significant Comorbidiites Make Outpatient Treatment Too Risky, Need Close Monitoring Due to Risk of Patient Decompensation, Need For Continuous Telemetry Monitoring
[2019-03-30 09:16] LABS: FREE T3 2.3 pg/mL (2.77-5.27); FREE T4 (FREE THYROXINE) 1.31 ng/dL (0.78-2.19)
--- NOTE | 2019-03-30 09:25 | EKG REPORT ---
SEVERITY:- ABNORMAL ECG - A-V DUAL-PACED COMPLEXES W/ SOME INHIBITION : Confirmed by: Geena Ortiz MD 30-Mar-2019 09:25:10
[2019-03-30 09:30] LABS: THYROID STIMULATING HORMONE 4.66 uIU/mL (0.47-4.68)
[2019-03-30 09:43] LABS: CREATINE KINASE MB 0.6 ng/mL (<4.55); TROPONIN I 0.033 ng/mL
[2019-03-30] MEDS ORDERED: VALSARTAN 160 MG TABLET PO SCH (10:00)
[2019-03-30] MEDS ORDERED: AMIODARONE HCL INJ 150 MG/3 ML VIAL IV ONE (10:00)
[2019-03-30] MEDS ORDERED: ADENOSINE INJ/PF 6 MG/2 ML SDV IV ONE (10:00)
[2019-03-30] MEDS: SPIRONOLACTONE 25 MG TABLET PO SCH (10:08)
[2019-03-30] MEDS: COLCHICINE 0.6 MG TABLET PO SCH ×2 (10:08→18:06)
[2019-03-30] MEDS: DOCUSATE SODIUM 100 MG CAPSULE PO SCH ×2 (10:09→18:06)
[2019-03-30] MEDS: METOPROLOL SUCCINATE 50 MG TAB.SR.24H PO SCH (10:09)
[2019-03-30] MEDS: ALLOPURINOL 100 MG TABLET PO SCH (10:10)
--- NOTE | 2019-03-30 15:47 | RADIOLOGY REPORT (SQ) ---
EXAM DESCRIPTION: BARIUM SWALLOW ESOPHAGUS COMPLETED DATE/TIME: 03/30/2019 3:15 pm REASON FOR STUDY: chest pain E08.65 DIABETES DUE TO UNDERLYING CONDITION W HYPERGLYCEMIA E78.5 HYP ERLIPIDEMIA, UNSPECIFIED R09.1 PLEURISY COMPARISON: None. TECHNIQUE: Under fluoroscopic guidance, patient ingested effervescent granules followed by thick and thin barium. Fluoroscopic spot images and routine radiographic images acquired and stored on PACS. 12 MM BARIUM TABLET GIVEN: Tablet not given, thus patient became short of breath. LIMITATIONS: Patient became short of breath, therefore 12 mm tablet not given and supine images not obtained. FLUOROSCOPY TIME: FLUORO TIME: 1.03 minutes 4 images saved to PACS FINDINGS: NEUROMUSCULAR COORDINATION OF SWALLOW: Normal. No aspiration. ESOPHAGEAL MOTILITY: Normal peristalsis. No esophageal spasm. ESOPHAGEAL MUCOSA: Normal mucosa without masses or ulceration. GASTRO-ESOPHAGEAL JUNCTION: No hiatal hernia. Gastroesophageal reflux identified. NON-GI TRACT STRUCTURES: No significant finding. OTHER: No other significant finding. IMPRESSION: GASTROESOPHAGEAL REFLUX. OTHERWISE NORMAL LIMITED BARIUM SWALLOW. RECOMMENDATION: NONE COMMENT: NONE Quality ID [id number]: Final reports for procedures using fluoroscopy that document radiation exposure john edmar, or exposure time and number of fluorographic images (if radiation exposure indices are not avail able) TECHNICAL DOCUMENTATION: JOB ID: [id number] [employer]- All Rights Reserved Reading location - IP/workstation name: [email or web address]
[2019-03-30 16:18] LABS: CREATINE KINASE MB 0.65 ng/mL (<4.55); TROPONIN I 0.032 ng/mL
[2019-03-30 21:13] LABS: CREATINE KINASE MB 0.64 ng/mL (<4.55); TROPONIN I 0.033 ng/mL
--- NOTE | 2019-03-30 21:28 | Progress Note ---
Provider Note Provider Note: Patient is an 83-year-old male with a past medical history of CHF, CAD, SC, hypertension, hyperlipidemia, DM 2, CKD, arthritis, gout, who was admitted early this morning by the phone specialist for chest pain. Overnight events, vital signs, imaging and laboratory evaluation, and orders were reviewed. Agree with the plan of care as established by the previous provider. In addition, I have reviewed the patient's Cardiolite stress test from December 2017 where recommendations were for low threshold for proceeding to cardiac catheterization if the patient continues to have chest discomfort. Therefore, I have consulted Dr. Ortiz to evaluate for cardiac cath appropriateness. Esophageal x-ray was obtained; the patient does have confirmed reflux. It does not appear that he is not on home medications for GERD. Therefore will start twice daily Protonix. The patient's home medications have been reconciled and resumed.
[2019-03-31] MEDS ORDERED: NITROGLYCERIN 0.4 MG/TAB 25 TAB/BOTTLE ONE (00:59)
[2019-03-31] MEDS: NITROGLYCERIN 0.4 MG/TAB 25 TAB/BOTTLE SL PRN ×3 (01:09→17:55)
[2019-03-31] MEDS: HEPARIN SOD (PORCINE) 5,000 UNIT/ML 1 ML VIAL SUBCUT SCH (05:29)
[2019-03-31] MEDS: PANTOPRAZOLE SODIUM 40 MG TABLET.DR PO SCH ×2 (05:30→18:37)
[2019-03-31] MEDS ORDERED: LEVOTHYROXINE SODIUM 0.025 MG TABLET PO SCH (06:00)
[2019-03-31] MEDS ORDERED: METOPROLOL TARTRATE PF/INJ 5 MG/5 ML SDV IV ONE ×2 (06:18→06:32)
[2019-03-31 07:31] LABS: HEMATOCRIT 36.4 % (37.9-51.0); HEMOGLOBIN 11.5 g/dL (13.5-17.0); MEAN CORPUSCULAR HEMOGLOBIN 28.4 pg (27.0-33.4); MEAN CORPUSCULAR HGB CONC 31.6 g/dL (32.0-36.0); MEAN CORPUSCULAR VOLUME 90 fl (80-97); PLATELET COUNT 191 10^3/uL (150-450); RED BLOOD COUNT 4.06 10^6/uL (4.35-5.55); RED CELL DISTRIBUTION WIDTH 18.4 % (11.5-14.0); WHITE BLOOD COUNT 8.4 10^3/uL (4.0-10.5)
[2019-03-31] MEDS ORDERED: FUROSEMIDE 20 MG TABLET PO SCH (08:00)
[2019-03-31 08:12] LABS: ANION GAP 11 (5-19); BLOOD UREA NITROGEN 31 mg/dL (7-20); CALCIUM 9.4 mg/dL (8.4-10.2); CARBON DIOXIDE 20 mmol/L (22-30); CHLORIDE 110 mmol/L (98-107); CHOLESTEROL 84.04 mg/dL (0-200); GLUCOSE 132 mg/dL (75-110); POTASSIUM 4.5 mmol/L (3.6-5.0); TRIGLYCERIDES 80 mg/dL (<150)
[2019-03-31 08:23] LABS: DIRECT LDL 51 mg/dL (<100)
[2019-03-31 08:54] LABS: CREATINE KINASE MB 2.87 ng/mL (<4.55)
[2019-03-31 09:03] LABS: TROPONIN I 0.476 ng/mL
[2019-03-31] MEDS: DOCUSATE SODIUM 100 MG CAPSULE PO SCH (09:21)
[2019-03-31] MEDS: SPIRONOLACTONE 25 MG TABLET PO SCH (09:21)
[2019-03-31] MEDS: COLCHICINE 0.6 MG TABLET PO SCH ×2 (09:22→18:38)
[2019-03-31] MEDS: ALLOPURINOL 100 MG TABLET PO SCH (09:23)
[2019-03-31] MEDS: METOPROLOL SUCCINATE 50 MG TAB.SR.24H PO SCH (09:23)
[2019-03-31] MEDS ORDERED: HEPARIN SOD (PORCINE) 1,000 UNIT/ML 10 ML VIAL IV ONE (09:28)
[2019-03-31] MEDS ORDERED: ASPIRIN 81 MG TABLET, CHEWABLE PO ONE (09:33)
[2019-03-31] MEDS ORDERED: DILTIAZEM HCL INJ 25 MG/5 ML VIAL IV ONE (09:37)
[2019-03-31] MEDS ORDERED: HEPARIN SODIUM,PORCINE/D5W 25,000 UNIT/250 ML RTUINJ IV ONE (09:45)
[2019-03-31] MEDS ORDERED: HEPARIN SOD (PORCINE) 1,000 UNIT/ML 10 ML VIAL ONE (09:45)
[2019-03-31] MEDS ORDERED: DILTIAZEM HCL INJ 25 MG/5 ML VIAL ONE (09:49)
[2019-03-31] MEDS ORDERED: LOSARTAN POTASSIUM 50 MG TABLET PO SCH (10:00)
[2019-03-31] MEDS ORDERED: ASPIRIN 81 MG TABLET, ENT COATED PO SCH (10:00)
[2019-03-31] MEDS ORDERED: ISOSORBIDE MONONITRATE 30 MG TAB.ER.24H PO SCH (10:00)
[2019-03-31] MEDS ORDERED: ATORVASTATIN CALCIUM 40 MG TABLET PO SCH (10:00)
[2019-03-31] MEDS ORDERED: LEVALBUTEROL HCL NEB 1.25 MG/3 ML AMPUL NEB ONE (10:00)
[2019-03-31] MEDS ORDERED: HEPARIN SODIUM,PORCINE/D5W 25,000 UNIT/250 ML RTUINJ IV PRN (10:00)
[2019-03-31] MEDS ORDERED: MIDAZOLAM 2 MG/2 ML INJ ONE (10:11)
[2019-03-31] MEDS ORDERED: FUROSEMIDE INJ/PF 40 MG/4 ML SDV ONE (10:17)
[2019-03-31 10:23] LABS: ABSOLUTE BASOPHILS # (AUTO) 0.1 10^3/uL (0.0-0.2); ABSOLUTE LYMPHOCYTES (AUTO) 1.6 10^3/uL (0.5-4.7); ABSOLUTE MONOCYTES (AUTO) 1.2 10^3/uL (0.1-1.4); ABSOLUTE NEUT (AUTO) 8.6 10^3/uL (1.7-8.2); BASOPHILS % (AUTO) 0.9 % (0-2); EOSINOPHILS % (AUTO) 0.4 % (0-6); HEMATOCRIT 40.7 % (37.9-51.0); HEMOGLOBIN 12.8 g/dL (13.5-17.0); MEAN CORPUSCULAR HEMOGLOBIN 28.2 pg (27.0-33.4); MEAN CORPUSCULAR HGB CONC 31.4 g/dL (32.0-36.0); MEAN CORPUSCULAR VOLUME 90 fl (80-97); MONOCYTES % (AUTO) 10.1 % (3-13); PLATELET COUNT 223 10^3/uL (150-450); RED BLOOD COUNT 4.52 10^6/uL (4.35-5.55); RED CELL DISTRIBUTION WIDTH 18.3 % (11.5-14.0); SEGMENTED NEUTROPHILS % (AUTO) 74.6 % (42-78); TOTAL CELLS COUNTED % (AUTO) 100 %; WHITE BLOOD COUNT 11.5 10^3/uL (4.0-10.5)
[2019-03-31] MEDS ORDERED: FUROSEMIDE INJ/PF 40 MG/4 ML SDV IV PRN (10:29)
[2019-03-31 10:30] LABS: INTERNATIONAL RATION (INR) 1.34; PROTHROMBIN TIME 16.7 SEC (11.4-15.4)
[2019-03-31 10:51] LABS: CREATINE KINASE MB 4.63 ng/mL (<4.55)
[2019-03-31 10:56] LABS: TROPONIN I 1.19 ng/mL
[2019-03-31] MEDS ORDERED: DEXTROSE 5%-WATER 500 ML with AMIODARONE HCL 900 MG IV PRN ×2 (11:00)
[2019-03-31] MEDS ORDERED: FUROSEMIDE INJ/PF 40 MG/4 ML SDV IV ONE (11:00)
[2019-03-31] MEDS ORDERED: MIDAZOLAM 2 MG/2 ML INJ IV ONE (11:00)
[2019-03-31] MEDS ORDERED: AMIODARONE HCL 150 MG in DEXTROSE 5%-WATER 100 ML IV ONE (11:00)
[2019-03-31] MEDS ORDERED: ADENOSINE INJ/PF 6 MG/2 ML SDV IV ONE (11:00)
--- NOTE | 2019-03-31 11:56 | PDOC PROGRESS REPORT ---
Subjective Progress Note for:: 03/31/19 Subjective:: Patient was admitted for chest pain and shortness of breath. This morning he was developing chest pain and had wide-complex tachycardia culminating in the need for cardioversion. We are asked to evaluate the patient because of his unstable pattern. We responded to the call and evaluate the patient on the fourth floor. Patient had just been cardioverted and had just been sedated. He was having some sonorous breathing and was coughing. Blood pressure was 140/70 heart rate was sinus at 102. He he has a long extensive cardiac history with an MD and CABG a number of years ago (1997). He had an ICD placed for cardiomyopathy and his last ejection fraction was noted to be 30 to 35%. He has known mild to moderate aortic stenosis. Of note his troponin has been slowly rising and this morning was greater than 1. After the Versed wore off we were able to discuss with the patient and obtain some more information. He does endorse chest discomfort and shortness of breath. He does not appear to have any dyspnea with exertion. The chest pain occurred prior to admission. He believes he was seen at [facility] with a concern that there w ere problems with his ICD leads. We do not have his records for confirmation or work-up. Family is in route to further clarify. He currently is improved in the ICU. He is able to speak in full sentences somewhat confused but this improved continually over time. I placed a call to Dr. Connell his medical screener from [facility] regarding our concerns for chest pain wide-complex tachycardia and rising troponin. He is in agreement that the patient should be transferred to [facility] for definitive cardiac cath and further work-up. Complex nature of this case previous disease diagnostic heart catheterization would not be helpful. Furthermore given his baseline renal s tatus we would want to limit the amount of contrast. Reason For Visit: CHEST PAIN Physical Exam Vital Signs: Temp Pulse Resp BP Pulse Ox 98.4 F 71 20 127/52 H 94 03/31/19 08:00 03/31/19 08:00 03/31/19 08:00 03/31/19 08:00 03/31/19 08:00 Intake & Output 03/30/19 03/31/19 04/01/19 06:59 06:59 06:59 Intake Total 360 Output Total 775 Balance -415 Weight 72 kg Physical Exam: Elderly ill appearing initially appeared toxic now improved 83-year-old male alert awake oriented to person place General appearance: PRESENT: no acute distress, well-developed, well-nourished Head exam: PRESENT: atraumatic, normocephalic Eye exam: PRESENT: conjunctiva pink, EOMI, PERRLA. ABSENT: conjunctival injection, nystagmus, scleral icterus Mouth exam: PRESENT: dry mucosa, neck supple, tongue midline Teeth exam: PRESENT: poor dentation Neck exam: PRESENT: full ROM. ABSENT: carotid bruit, JVD, lymphadenopathy, meningismus, tenderness, thyromegaly, tracheal deviation Respiratory exam: PRESENT: accessory muscle use, crackles, retraction, tachypnea Cardiovascular exam: PRESENT: RRR, +S1, +S2, systolic murmur Murmur grade: 3 Pulses: PRESENT: other Additional comments: 2+ pulse on left, 1- on left Vascular exam: PRESENT: normal capillary refill GI/Abdominal exam: PRESENT: soft. ABSENT: ascites, diminished bowel sounds, distended, firm, mass, Kimble's sign, rebound, rigid, tenderness Rectal exam: PRESENT: deferred Gentrourinary exam: ABSENT: ecchymosis, erythema, lesions, scrotal swelling Extremities exam: PRESENT: full ROM. ABSENT: joint swelling, pedal edema Musculoskeletal exam: PRESENT: normal inspection. ABSENT: deformity, dislocation Neurological exam: PRESENT: altered - Altered at first. Over time, improved., awake, oriented to person, oriented to place, oriented to time, CN II-XII grossly intact. ABSENT: motor sensory deficit, aphasic Psychiatric exam: PRESENT: appropriate affect, normal mood Focused psych exam: PRESENT: restlessness Additional comments: Restless after cardioversion. Improved Skin exam: PRESENT: intact, normal color. ABSENT: abrasion, cyanosis, erythema, mottled, pallor, petechiae, urticaria, vesicles Results Laboratory Results: 03/31/19 10:00 03/31/19 03/31/19 03/31/19 07:09 07:09 10:00 WBC 8.4 11.5 H RBC 4.06 L 4.52 Hgb 11.5 L 12.8 L Hct 36.4 L 40.7 MCV 90 90 MCH 28.4 28.2 MCHC 31.6 L 31.4 L RDW 18.4 H 18.3 H Plt Count 191 223 Seg Neutrophils % 74.6 Sodium 141.3 Potassium 4.5 Chloride 110 H Carbon Dioxide 20 L Anion Gap 11 BUN 31 H Creatinine 2.15 H Est GFR ( Amer) 36 L Glucose 132 H Calcium 9.4 Magnesium 1.9 Triglycerides 80 Cholesterol 84.04 LDL Cholesterol Direct 51 VLDL Cholesterol 16.0 HDL Cholesterol 27 L 03/29/19 03/29/19 03/30/19 21:50 21:50 01:43 Creatine Kinase 27 L CK-MB (CK-2) 0.68 Troponin I 0.015 0.031 03/30/19 03/30/19 03/30/19 07:49 07:49 14:37 Creatine Kinase 21 L 22 L CK-MB (CK-2) 0.60 Troponin I 0.033 03/30/19 03/30/19 03/30/19 14:37 19:52 19:52 Creatine Kinase 22 L CK-MB (CK-2) 0.65 0.64 Troponin I 0.032 0.033 03/31/19 03/31/19 03/31/19 07:09 08:03 10:00 Creatine Kinase 35 L 73 CK-MB (CK-2) 2.87 Troponin I 0.476 03/31/19 10:00 Creatine Kinase CK-MB (CK-2) 4.63 H Troponin I 1.190 Impressions: Chest X-Ray 03/29/19 21:36 IMPRESSION: No evidence of acute cardiopulmonary disease. Stable postsurgical changes of the heart. Esophagus X-Ray 03/30/19 00:00 IMPRESSION: GASTROESOPHAGEAL REFLUX. OTHERWISE NORMAL LIMITED BARIUM SWALLOW. Assessment & Plan - Diagnosis (1) Wide-complex tachycardia Is this a current diagnosis for this admission?: Yes Plan: Appears to be LBBB pattern with tachycardia. Atrial fibrillation (2) Chest pain due to CAD Is this a current diagnosis for this admission?: Yes (3) Elevated troponin Is this a current diagnosis for this admission?: Yes (4) CAD (coronary artery disease) Qualifiers: Coronary Disease-Associated Artery/Lesion type: bypass graft [place] vs. transplanted heart: [place] heart Associated angina: with unstable angina Qualified Code(s): I25.700 - Atherosclerosis of coronary artery bypass graft(s), unspecified, with unstable angina pectoris Is this a current diagnosis for this admission?: Yes (5) Encephalopathy, metabolic Is this a current diagnosis for this admission?: Yes Plan: improved (6) Atrial flutter Qualifiers: Atrial flutter type: atypical Qualified Code(s): I48.4 - Atypical atrial flutter Is this a current diagnosis for this admission?: Yes - Time Time Spent with patient: 35 or more minutes Total Critical Time (Minutes): 75 Medications reviewed and adjusted accordingly: Yes Anticipated discharge: [facility] Hospital Within: within 24 hours Disposition: transfer to [facility] - Inpatient Certification Based on my medical assessment, after consideration of the patient's comorbidities, presenting symptoms, or acuity I expect that the services needed warrant INPATIENT care.: Yes I certify that my determination is in accordance with my understanding of Medicare's requirements for reasonable and necessary INPATIENT services [42 CFR 412.3e].: Yes Medical Necessity: Need Close Monitoring Due to Risk of Patient Decompensation, Need For Continuous Telemetry Monitoring, Need for Surgery, Risk of Complication if Not Cared For in Hospital 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 He does use his abdominal accessory muscles however this is improved as well. I am concerned that he may have aspirated during the event. Typically aspiration usually does not require antibiotics however he is on PPIs which would place him at risk for aspiration pneumonia. In studies done in some literature and becoming more prominent anecdotally the use of Rocephin and Flagyl has become treatment for at least 48 hours. Chest x-ray is pending at time of this dictation. I had a discussion with the patient's medical screener, Dr. Connell and, from [facility]. He knows the patient quite well. He has had several situations involving his ICD and chest pain. He has not had a formal heart catheterization. 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 Given the onset of chest pain with troponin leak and wide-complex tachycardia the prevailing consensus is that the patient will require coronary artery evaluation. He will also need evaluation of his ICD. Plans are currently underway for transfer. We will sure patient's hemodynamic and respirate status are stable. I discontinued diuretic at this point. He does have significant aortic stenosis and biatrial enlargement which predisposes him to atrial dysrhythmias. He had been on digoxin and will check a level. Check urine risks for infection.
--- NOTE | 2019-03-31 12:01 | RADIOLOGY REPORT (SQ) ---
EXAM DESCRIPTION: CHEST SINGLE VIEW COMPLETED DATE/TIME: 03/31/2019 11:49 am REASON FOR STUDY: aspiration COMPARISON: 03/29/2019 NUMBER OF VIEWS: One view. TECHNIQUE: Single frontal radiographic view of the chest acquired. LIMITATIONS: Low lung volumes. FINDINGS: LUNGS AND PLEURA: There is bilateral alveolar airspace disease new from yesterday. There are small effusions. MEDIASTINUM AND HILAR STRUCTURES: No masses. Contour normal. HEART AND VASCULAR STRUCTURES: Heart is enlarged with central vascular prominence. BONES: No acute findings. HARDWARE: Battery pack and leads are in place along with sternotomy wires. OTHER: There is contrast throughout the colon. IMPRESSION: Cardiomegaly an alveolar airspace disease most likely edema. There are small effusions. TECHNICAL DOCUMENTATION: JOB ID: [id number] [email or web address]- All Rights Reserved Reading location - IP/workstation name: [email or web address]
[2019-03-31 12:03] LABS: ALBUMIN 3.4 g/dL (3.5-5.0); ALKALINE PHOSPHATASE 91 U/L (38-126); ANION GAP 12 (5-19); ASPARTATE AMINO TRANSFERASE 19 U/L (17-59); BILIRUBIN,DIRECT 0.3 mg/dL (0.0-0.4); BILIRUBIN,TOTAL 1.1 mg/dL (0.2-1.3); BLOOD UREA NITROGEN 31 mg/dL (7-20); CALCIUM 9.7 mg/dL (8.4-10.2); CARBON DIOXIDE 19 mmol/L (22-30); CHLORIDE 110 mmol/L (98-107); GLUCOSE 106 mg/dL (75-110); PHOSPHORUS 3.4 mg/dL (2.5-4.5); POTASSIUM 4.5 mmol/L (3.6-5.0); TOTAL PROTEIN 6.3 g/dL (6.3-8.2)
[2019-03-31 12:05] LABS: DIGOXIN < 0.40 ng/mL (0.8-2.0)
[2019-03-31] MEDS ORDERED: CEFTRIAXONE 2 GM/D5W RTU 2 GM/50 ML RTUPB IV SCH (12:06)
--- NOTE | 2019-03-31 12:09 | PDOC TRANSFER SUMMARY ---
General Admission Date/PCP: 03/30/19 03:40 FRANCISCO ALVARADO MD Admission Date: 03/30/19 Transfer Date: 03/31/19 Accepting Facility: [facility] Resuscitation Status: Full Code - Transfer Diagnosis (1) Wide-complex tachycardia Is this a current diagnosis for this admission?: Yes (2) Chest pain due to CAD Is this a current diagnosis for this admission?: Yes (3) Elevated troponin Is this a current diagnosis for this admission?: Yes (4) CAD (coronary artery disease) Is this a current diagnosis for this admission?: Yes (5) Encephalopathy, metabolic Is this a current diagnosis for this admission?: Yes (6) Atrial flutter Is this a current diagnosis for this admission?: Yes - Transfer Medications Home Medications: Allopurinol [Zyloprim 100 mg Tablet] 200 mg PO QAM 03/30/19 Atorvastatin Calcium [Lipitor 40 mg Tablet] 40 mg PO DAILY 03/30/19 Colchicine [Colcrys 0.6 mg Tablet] 0.6 mg PO BID 03/30/19 Furosemide [Lasix 20 mg Tablet] 20 mg PO QAM 03/30/19 Isosorbide Mononitrate [Imdur 30 mg Tablet.er] 15 mg PO DAILY 03/30/19 Levothyroxine Sodium 25 mcg PO Q6AM 03/30/19 Losartan Potassium [Cozaar 100 mg Tablet] 100 mg PO DAILY 03/30/19 Metoprolol Succinate [Toprol Xl 50 mg Tab.sr] 75 mg PO QHS 03/30/19 Spironolactone [Aldactone 25 mg Tablet] 25 mg PO DAILY 03/30/19 Tamsulosin HCl [Flomax 0.4 mg Cap.sr] 0.4 mg PO QHS 03/30/19 Transfer Medications: Current Medications Al Hydrox/Mg Hydrox/Simethicone (Maalox Plus Susp 30 Udcup) 30 ml PO Q6HP PRN PRN Reason: HEARTBURN Stop: 04/29/19 04:52 Allopurinol (Zyloprim 100 Mg Tablet) 100 mg PO DAILY [facility] Stop: 04/29/19 09:59 Last Admin: 03/31/19 09:23 Dose: 100 mg Documented by: Aspirin (Ecotrin 81 Mg Ec Tablet) 81 mg PO DAILY MODE[facility] Stop: 05/01/19 09:59 Atorvastatin Calcium (Lipitor 40 Mg Tablet) 40 mg PO DAILY MODE[facility] Stop: 04/30/19 09:59 Last Admin: 03/31/19 09:22 Dose: 40 mg Documented by: Colchicine (Colcrys 0.6 Mg Tablet) 0.6 mg PO BID MO[facility] Stop: 04/29/19 09:59 Last Admin: 03/31/19 09:22 Dose: 0.6 mg Documented by: Docusate Sodium (Colace 100 Mg Capsule) 100 mg PO BID [facility] Stop: 04/29/19 09:59 Last Admin: 03/31/19 09:21 Dose: 100 mg Documented by: Heparin Sodium (Porcine) (Heparin Inj 1,000 Unit/Ml 10 Ml Vial) 0 - 12,000 unit IV .BOLUS PER PROTOCOL PRN; Protocol PRN Reason: RESPOND TO aPTT VALUE Stop: 04/30/19 12:28 Amiodarone HCl 900 mg/ (Dextrose) 500 mls @ 0 mls/hr IV CONTINUOUS PRN; Protocol PRN Reason: THIS MED IS NOT "PRN" Stop: 04/03/19 10:59 Heparin Sodium/Dextrose (Heparin Rtu 25,000 Unit/250 Ml D5w Premix) 25,000 unit in 250 mls @ 0 mls/hr IV CONTINUOUS PRN; Protocol PRN Reason: THIS MED IS NOT "PRN" Stop: 04/30/19 09:59 Last Admin: 03/31/19 11:10 Dose: 10 mls/hr, 10 mls/hr Documented by: Isosorbide Mononitrate (Imdur 30 Mg Tablet.Er) 15 mg PO DAILY [facility] Stop: 04/30/19 09:59 Last Admin: 03/31/19 09:22 Dose: 15 mg Documented by: Levothyroxine Sodium (Synthroid 0.025 Mg Tablet) 0.025 mg PO Q6AM [facility] Stop: 04/30/19 05:59 Last Admin: 03/31/19 05:30 Dose: 0.025 mg Documented by: Losartan Potassium (Cozaar 50 Mg Tablet) 100 mg PO DAILY [facility] Stop: 04/30/19 09:59 Last Admin: 03/31/19 09:22 Dose: 100 mg Documented by: Magnesium Hydroxide (Milk Of Magnesia 30 Ml Udcup) 30 ml PO HSP PRN PRN Reason: FOR CONSTIPATION Stop: 04/29/19 04:52 Metoprolol Succinate (Toprol Xl 50 Mg Tab.Sr) 50 mg PO DAILY [facility] Stop: 04/29/19 09:59 Last Admin: 03/31/19 09:23 Dose: 50 mg Documented by: Nitroglycerin (Nitrostat 0.4 Mg (1/150 Gr) Tabs 25/Bottle) 1 tab SL Q5MP PRN PRN Reason: CHEST PAIN Last Admin: 03/31/19 01:09 Dose: 1 tab Documented by: Ondansetron HCl (Zofran Inj/Pf 4 Mg/2 Ml Sdv) 4 mg IV Q4HP PRN PRN Reason: FOR NAUSEA/VOMITING Stop: 04/29/19 04:52 Pantoprazole Sodium (Protonix [address] Tablet) 40 mg PO BID@0600,1700 [facility] Stop: 04/30/19 05:59 Last Admin: 03/31/19 05:30 Dose: 40 mg Documented by: Sodium Chloride (Saline Flush 2.5 Ml Monoject Prefil Syrin) 2.5 ml IV Q8 [facility] Stop: 04/29/19 05:59 Last Admin: 03/31/19 05:30 Dose: 2.5 ml Documented by: Tamsulosin HCl (Flomax 0.4 Mg Cap.Sr) 0.4 mg PO PCSUPPER MODE[facility] Stop: 04/30/19 17:59 - Allergies Allergies/Adverse Reactions: No Known Allergies Allergy (Verified 08/31/18 10:34) Hospital Course Hospital Course: Patient admitted for chest pain. He has a long-standing coronary artery disease history. He was admitted to a general medical floor and developed chest pain and wide- complex tachycardia. He has a known pacemaker in and that wide-complex tachycardia was most likely a atrial dysrhythmia with a left bundle branch block pattern. He was initially sedated with Versed and had some shortness of breath which had improved. Chest x-ray shows some mixed interstitial alveolar pattern. The patient had a questionable respiratory distress and aspiration he was tra nsitioned to the ICU. He was also transitioned because of the unstable nature of his tachycardia and the troponin elevation. Improved while in the ICU. 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 Physical Exam Vital Signs: Temp Pulse Resp BP Pulse Ox 98.4 F 74 26 H 127/52 H 93 03/31/19 08:00 03/31/19 09:34 03/31/19 09:34 03/31/19 08:00 03/31/19 09:34 Intake & Output 03/30/19 03/31/19 04/01/19 06:59 06:59 06:59 Intake Total 360 Output Total 775 Balance -415 Weight 72 kg Exam: Please see the critical care progress note/consultation done from today. Results Laboratory Results: 03/31/19 10:00 03/31/19 03/31/19 03/31/19 07:09 07:09 10:00 WBC 8.4 11.5 H RBC 4.06 L 4.52 Hgb 11.5 L 12.8 L Hct 36.4 L 40.7 MCV 90 90 MCH 28.4 28.2 MCHC 31.6 L 31.4 L RDW 18.4 H 18.3 H Plt Count 191 223 Seg Neutrophils % 74.6 Sodium 141.3 Potassium 4.5 Chloride 110 H Carbon Dioxide 20 L Anion Gap 11 BUN 31 H Creatinine 2.15 H Est GFR ( Amer) 36 L Glucose 132 H Calcium 9.4 Magnesium 1.9 Triglycerides 80 Cholesterol 84.04 LDL Cholesterol Direct 51 VLDL Cholesterol 16.0 HDL Cholesterol 27 L 03/29/19 03/29/19 03/30/19 21:50 21:50 01:43 Creatine Kinase 27 L CK-MB (CK-2) 0.68 Troponin I 0.015 0.031 03/30/19 03/30/19 03/30/19 07:49 07:49 14:37 Creatine Kinase 21 L 22 L CK-MB (CK-2) 0.60 Troponin I 0.033 03/30/19 03/30/19 03/30/19 14:37 19:52 19:52 Creatine Kinase 22 L CK-MB (CK-2) 0.65 0.64 Troponin I 0.032 0.033 03/31/19 03/31/19 03/31/19 07:09 08:03 10:00 Creatine Kinase 35 L 73 CK-MB (CK-2) 2.87 Troponin I 0.476 03/31/19 10:00 Creatine Kinase CK-MB (CK-2) 4.63 H Troponin I 1.190 EKG Comments: BBB paced pattern. WCT on initial Impressions: Esophagus X-Ray 03/30/19 00:00 IMPRESSION: GASTROESOPHAGEAL REFLUX. OTHERWISE NORMAL LIMITED BARIUM SWALLOW. Status: Image reviewed by me Plan Discharge Plan: To be transferred to [facility]. Time Spent: Greater than 30 Minutes
[2019-03-31] MEDS ORDERED: HEPARIN SOD (PORCINE) 1,000 UNIT/ML 10 ML VIAL IV PRN (12:29)
[2019-03-31] MEDS ORDERED: METRONIDAZOLE 500 MG/NS RTU 500 MG in CONTAINER,EMPTY 1 EACH IV SCH (12:30)
[2019-03-31 13:59] LABS: ARTERIAL BLOOD H2CO3 0.92 mmol/L (1.05-1.35); ARTERIAL BLOOD HCO3 17.2 mmol/L (20-24); ARTERIAL BLOOD O2 SATURATION 96.3 % (94-98); ARTERIAL BLOOD PCO2 30.5 mmHg (35-45); ARTERIAL BLOOD PH 7.37 (7.35-7.45); ARTERIAL BLOOD PO2 84.7 mmHg (80-100); ARTERIAL BLOOD TOTAL CO2 18.1 mmol/L (23-27)
[2019-03-31 14:04] LABS: ARTERIAL BLOOD FIO2 4
[2019-03-31 14:04] LABS: APPEARANCE,URINE CLEAR; BILIRUBIN,URINE NEGATIVE (NEGATIVE); COLOR,URINE STRAW; GLUCOSE, URINE NEGATIVE (NEGATIVE); KETONES,URINE NEGATIVE (NEGATIVE); LEUKOCYTE ESTERASE,URINE NEGATIVE (NEGATIVE); NITRITE,URINE NEGATIVE (NEGATIVE); PROTEIN,URINE NEGATIVE (NEGATIVE); URINE SPECIFIC GRAVITY 1.005; UROBILINOGEN,URINE NEGATIVE mg/dL (<2.0)
[2019-03-31] MEDS: METRONIDAZOLE 500 MG/NS RTU 500 MG/100 ML RTUPB IV SCH ×2 (14:15→18:38)
--- NOTE | 2019-03-31 14:53 | PDOC PROGRESS REPORT ---
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 The patient was seen in the morning rounds. He was initially found resting comfortably on supplemental oxygen at 2 L/min. Patient is not normally home O2 dependent. However, early this morning (~0500 am) the patient developed an episode of chest discomfort that woke him from sleep and was found to be hypoxic with an oxygen saturation in the mid to high 80s. The patient's chest discomfort resolved after application of supplemental oxygen and 1 tab sublingu al nitroglycerin. The patient described his discomfort as anxiety and "smothering claw over my face." Shortly after rounding on the patient, received a call from nursing with report of follow-up troponin of 0.476 and report of additional chest discomfort. Few moments later, the patient was noted to have a wide-complex tachycardia with a sustained rate of 140. Dr. May and Dr. Kenny, cardiology, came to the bedside to further assist with evaluation/management. The patient was administered Adenosine; brief response allowed for evaluation of underlying atrial flutter. He was then provided Versed and received electric cardioversion followed by immediate amiodarone bolus/drip. The patient's initial rhythm following cardioversion was atrial tachycardia with bundle branch block. HR 100-110. Dr. Oneill, drug safety specialist, was asked to evaluate the patient and came to bedside. It was determined that the patient would benefit from upgrade to ICU for continued monitoring and management of unstable tachycardia with elevated troponin. The patient's and son were called and undated on the patient's clinical status and move to the ICU. Reason For Visit: CHEST PAIN Physical Exam Vital Signs: Temp Pulse Resp BP Pulse Ox 97.4 F 62 18 114/56 L 100 03/31/19 10:45 03/31/19 12:41 03/31/19 12:41 03/31/19 12:41 03/31/19 12:41 Intake & Output 03/30/19 03/31/19 04/01/19 06:59 06:59 06:59 Intake Total 360 Output Total 775 440 Balance -415 -440 Weight 72 kg General appearance: PRESENT: no acute distress, cooperative, well-developed, well-nourished Head exam: PRESENT: atraumatic, normocephalic Eye exam: PRESENT: conjunctiva pink, EOMI, PERRLA. ABSENT: scleral icterus Ear exam: PRESENT: normal external ear exam Mouth exam: PRESENT: moist, tongue midline Neck exam: ABSENT: carotid bruit, JVD, lymphadenopathy, thyromegaly Respiratory exam: PRESENT: symmetrical, tachypnea, wheezes. ABSENT: rales, rhonchi Cardiovascular exam: PRESENT: irregular rhythm, tachycardia. ABSENT: diastolic murmur, rubs, systolic murmur Vascular exam: PRESENT: normal capillary refill Extremities exam: PRESENT: full ROM. ABSENT: calf tenderness, clubbing, pedal edema Neurological exam: PRESENT: alert, awake, oriented to person, oriented to place, oriented to time, oriented to situation, CN II-XII grossly intact, other - Slight intermittent confusion. ABSENT: motor sensory deficit Psychiatric exam: PRESENT: appropriate affect, normal mood. ABSENT: homicidal ideation, suicidal ideation Skin exam: PRESENT: dry, intact, warm. ABSENT: cyanosis, rash Results Laboratory Results: 03/31/19 10:00 03/31/19 10:00 03/31/19 03/31/19 03/31/19 07:09 07:09 10:00 WBC 8.4 11.5 H RBC 4.06 L 4.52 Hgb 11.5 L 12.8 L Hct 36.4 L 40.7 MCV 90 90 MCH 28.4 28.2 MCHC 31.6 L 31.4 L RDW 18.4 H 18.3 H Plt Count 191 223 Seg Neutrophils % 74.6 Carbonic Acid HCO3/H2CO3 Ratio ABG pH ABG pCO2 ABG pO2 ABG HCO3 ABG O2 Saturation ABG Base Excess FiO2 Sodium 141.3 Potassium 4.5 Chloride 110 H Carbon Dioxide 20 L Anion Gap 11 BUN 31 H Creatinine 2.15 H Est GFR ( Amer) 36 L Glucose 132 H Lactic Acid Calcium 9.4 Phosphorus Magnesium 1.9 Total Bilirubin AST Alkaline Phosphatase Ammonia Total Protein Albumin Triglycerides 80 Cholesterol 84.04 LDL Cholesterol Direct 51 VLDL Cholesterol 16.0 HDL Cholesterol 27 L TSH Urine Color Urine Appearance Urine pH Ur Specific [place] Urine Protein Urine Glucose (UA) Urine Ketones Urine Blood Urine Nitrite Ur Leukocyte Esterase Urine WBC (Auto) Urine RBC (Auto) 03/31/19 03/31/19 03/31/19 10:00 10:00 13:20 WBC RBC Hgb Hct MCV MCH MCHC RDW Plt Count Seg Neutrophils % Carbonic Acid HCO3/H2CO3 Ratio ABG pH ABG pCO2 ABG pO2 ABG HCO3 ABG O2 Saturation ABG Base Excess FiO2 Sodium 141.3 Potassium 4.5 Chloride 110 H Carbon Dioxide 19 L Anion Gap 12 BUN 31 H Creatinine 2.10 H Est GFR ( Amer) 37 L Glucose 106 Lactic Acid Calcium 9.7 Phosphorus 3.4 Magnesium 2.0 Total Bilirubin 1.1 AST 19 Alkaline Phosphatase 91 Ammonia Total Protein 6.3 Albumin 3.4 L Triglycerides Cholesterol LDL Cholesterol Direct VLDL Cholesterol HDL Cholesterol TSH 5.87 H Urine Color STRAW Urine Appearance CLEAR Urine pH 5.0 Ur Specific [place] 1.005 Urine Protein NEGATIVE Urine Glucose (UA) NEGATIVE Urine Ketones NEGATIVE Urine Blood NEGATIVE Urine Nitrite NEGATIVE Ur Leukocyte Esterase NEGATIVE Urine WBC (Auto) 2 Urine RBC (Auto) 1 03/31/19 03/31/19 03/31/19 13:30 14:02 14:02 WBC RBC Hgb Hct MCV MCH MCHC RDW Plt Count Seg Neutrophils % Carbonic Acid 0.92 L HCO3/H2CO3 Ratio 18:1 ABG pH 7.37 ABG pCO2 30.5 L ABG pO2 84.7 ABG HCO3 17.2 L ABG O2 Saturation 96.3 ABG Base Excess -7.0 FiO2 4 Sodium Potassium Chloride Carbon Dioxide Anion Gap BUN Creatinine Est GFR ( Amer) Glucose Lactic Acid 2.6 H Calcium Phosphorus Magnesium Total Bilirubin AST Alkaline Phosphatase Ammonia < 8.7 L Total Protein Albumin Triglycerides Cholesterol LDL Cholesterol Direct VLDL Cholesterol HDL Cholesterol TSH Urine Color Urine Appearance Urine pH Ur Specific [place] Urine Protein Urine Glucose (UA) Urine Ketones Urine Blood Urine Nitrite Ur Leukocyte Esterase Urine WBC (Auto) Urine RBC (Auto) 03/29/19 03/29/19 03/30/19 21:50 21:50 01:43 Creatine Kinase 27 L CK-MB (CK-2) 0.68 Troponin I 0.015 0.031 03/30/19 03/30/19 03/30/19 07:49 07:49 14:37 Creatine Kinase 21 L 22 L CK-MB (CK-2) 0.60 Troponin I 0.033 03/30/19 03/30/1903/30/19 14:37 19:52 19:52 Creatine Kinase 22 L CK-MB (CK-2) 0.65 0.64 Troponin I 0.032 0.033 03/31/19 03/31/19 03/31/19 07:09 08:03 10:00 Creatine Kinase 35 L 73 CK-MB (CK-2) 2.87 Troponin I 0.476 03/31/19 10:00 Creatine Kinase CK-MB (CK-2) 4.63 H Troponin I 1.190 Impressions: Esophagus X-Ray 03/30/19 00:00 IMPRESSION: GASTROESOPHAGEAL REFLUX. OTHERWISE NORMAL LIMITED BARIUM SWALLOW. Chest X-Ray 03/31/19 00:00 IMPRESSION: Cardiomegaly an alveolar airspace disease most likely edema. There are small effusions. Assessment and Plan - Diagnosis (1) Wide-complex tachycardia Is this a current diagnosis for this admission?: Yes Plan: Following adenosine, appeared to be a LBBB pattern with atrial fibrillation/flutter. Patient's son does confirm the patient has an AICD which required interrogation February 2019 at [facility] due to misfire. Patient received electric cardioversion x1 shock with Dr. Lalo Ortiz at bedside. He is placed on amiodarone drip. He is upgraded to the ICU. (2) Chest pain due to CAD Is this a current diagnosis for this admission?: Yes Plan: Troponins are trending upward; 0.476 this morning following episode of chest pain that woke the patient from sleep. Nuclear stress test from December 2016 recommended low threshold for cardiac catheterization evaluation. Aspirin 324 mg now followed by 81 mg daily. Continue daily statin therapy. Placed on heparin drip. Cardioversion for wide-complex tachycardia as above. Cardiology is consulted. (3) Elevated troponin Is this a current diagnosis for this admission?: Yes Plan: Secondary to #1 and 2; evaluation management as above. (4) Chronic kidney disease, stage IV (severe) Is this a current diagnosis for this admission?: Yes Plan: Overall stable; baseline creatinine 2.1-2.5 Avoid nephrotoxic medications as able. Optimize cardiac output as above. Monitor with daily chemistries. Patient is followed by Dr. Hernandez; consider nephrology consultation if worsens. (5) Hypertension Qualifiers: Hypertension type: essential hypertension Qualified Code(s): I10 - Essential (primary) hypertension Is this a current diagnosis for this admission?: Yes Plan: Patient's home antihypertensive regiment was continued Metoprolol, losartan, isosorbide, furosemide. Cardiology has been consulted; further medication management per their expertise. - Time Time Spent with patient: 35 or more minutes Total Critical Time (Minutes): 40 Medications reviewed and adjusted accordingly: Yes Anticipated discharge[facility]: when bed available
[2019-03-31 16:25] LABS: CREATINE KINASE MB 6.3 ng/mL (<4.55); TROPONIN I 2.97 ng/mL
[2019-03-31 16:55] VITALS: BP 118/57
[2019-03-31] MEDS ORDERED: TAMSULOSIN HCL 0.4 MG CAP.SR.24H PO SCH (18:00)
--- NOTE | 2019-03-31 18:59 | EKG REPORT ---
SEVERITY:- ABNORMAL ECG - ATRIAL-SENSED VENTRICULAR-PACED RHYTHM : Confirmed by: Geena Ortiz MD 31-Mar-2019 18:58:55
--- NOTE | 2019-03-31 18:59 | EKG REPORT ---
SEVERITY:- ABNORMAL ECG - ATRIAL-SENSED VENTRICULAR-PACED RHYTHM : Confirmed by: Geena Ortiz MD 31-Mar-2019 18:59:08
--- NOTE | 2019-03-31 19:14 | XCELERA REPORT ---
[address] [address] Transthoracic Echocardiogram Report Name: LUDMILA HERMOSILLO Age: 83 yrs Gender: Male : 1935 Patient Status: Inpatient Patient Location: ICU^610^A Study Date: 03/31/2019 02:41 PM Height: 66 in Weight: 158 lb BSA: 1.8 m2 Procedure: A two-dimensional transthoracic echocardiogram with color flow and Doppler was performed. The study was technically difficult with many images being suboptimal in quality. Reason For Study: chest pain History: chest pain. Ordering Physician: UTE LEDBETTER Performed By: Alejandra Arzate Interpretation Summary The left ventricle is moderately dilated. There is normal left ventricular wall thickness. LV EF is 25% TO 30% Left ventricular systolic function is severely reduced. The LV apex is akinetic.Rest of the LV max re severely hypokinetic. There is no thrombus. cannot assess ASD,VSD , or PFO. The right ventricle is not well visualized secondary to technical limitations There is a pacemaker lead in the right ventricle. The right atrium is mildly dilated. The left atrium is moderately dilated. There is no evidence of mitral valve prolapse. There is no vegetation seen on the mitral valve. There is no mitral valve stenosis. There is a mild to moderate amount of mitral regurgitation There is no aortic valvular vegetation. There is mild aortic stenosis There is a peak gradient of 15 mm of Hg. There is a mild to moderate amount of aortic regurgitation There is no tricuspid stenosis. There is a mild to moderate amount of tricuspid regurgitation There is moderate pulmonary hypertension by echo RVSP is 50 mm of Hg wih RA mean of 10. There is no pulmonic valvular regurgitation. The aortic root is moderately dilated The inferior vena cava was not well visualized There is no pericardial effusion. MMode/2D Measurements & Calculations RVDd: 4.5 cm LVIDd: 6.5 cm FS: 20.9 % Ao root diam: 4.2 cm IVSd: 1.0 cm LVIDs: 5.1 cm EDV(Teich): Ao root area: LVPWd: 0.95 cm 215.9 ml 13.7 cm2 ESV(Teich): LA dimension: 4.2 cm 126.1 ml EF(Teich): 41.6 % LVLd ap4: 8.9 cm SV(MOD-sp4): EDV(MOD-sp4): 70.0 ml 226.0 ml LVLs ap4: 8.3 cm ESV(MOD-sp4): 156.0 ml EF(MOD-sp4): 31.0 % Doppler Measurements & Calculations MV E max jessica: MV P1/2t max jessica: Ao V2 max: AI max jessica: 97.2 cm/sec 98.2 cm/sec 192.9 cm/sec 442.5 cm/sec MV A max jessica: MV P1/2t: 46.4 msec Ao max PG: AI max P.3 mmHg 62.2 cm/sec MVA(P1/2t): 4.7 cm2 14.9 mmHg AI dec slope: MV E/A: 1.6 MV dec slope: 485.6 cm/sec2 619.9 cm/sec2 AI P1/2t: 266.9 msec MV dec time: 0.15 sec LV V1 max PG: PA V2 max: TR max jessica: AV P1/2t-pr_phl: 2.1 mmHg 41.0 cm/sec 316.3 cm/sec 266.9 msec LV V1 max: PA max P.67 mmHg TR max P.1 cm/sec 40.0 mmHg MV P1/2t-pr_phl: 46.4 msec Left Ventricle The left ventricle is moderately dilated. There is normal left ventricular wall thickness. LV EF is 25% TO 30%. Left ventricular systolic function is severely reduced. The LV apex is akinetic.Rest of the LV max re severely hypokinetic. There is no thrombus. cannot assess ASD,VSD , or PFO. Right Ventricle The right ventricle is not well visualized secondary to technical limitations. There is a pacemaker lead in the right ventricle. Atria The right atrium is mildly dilated. The left atrium is moderately dilated. Mitral Valve There is no evidence of mitral valve prolapse. There is no vegetation seen on the mitral valve. There is no mitral valve stenosis. There is a mild to moderate amount of mitral regurgitation. Aortic Valve There is no aortic valvular vegetation. There is mild aortic stenosis. There is a peak gradient of 15 mm of Hg. There is a mild to moderate amount of aortic regurgitation. Tricuspid Valve There is no tricuspid stenosis. There is a mild to moderate amount of tricuspid regurgitation. There is moderate pulmonary hypertension by echo. RVSP is 50 mm of Hg wih RA mean of 10. Pulmonic Valve There is no pulmonic valvular stenosis. There is no pulmonic valvular regurgitation. Great Vessels The aortic root is moderately dilated. The inferior vena cava was not well visualized. Effusions There is no pericardial effusion. : UTE LEDBETTER, Geena
--- NOTE | 2019-03-31 21:43 | Progress Note ---
Provider Note Provider Note: PROCEDURE NOTE by Dr. Geena Rodarte on 03/31/2019. 9:10 AM. PROCEDURE DONE: Emergency synchronized cardioversion of atrial flutter with wide-complex tachycardia. Indication: Patient complaining of chest pain/abdominal symptoms and also in a heart failure. Procedure in view of the emergency due to the patient's chest pain and heart failure due to rapid heart rate, the patient was given 2 mg of IV Versed and subsequently given 1 synchronized biphasic DC shock of 200 J. Patient converted to sinus rhythm. There was no complications. IMPRESSION: Successful cardioversion of atrial flutter with aberrant QRS [wide- complex] tachycardia converted to sinus rhythm. With ventricular paced rhythm. Complications: None. The patient is given Lasix 40 mg IV push and subsequently the patient also was started on bolus of amiodarone 150 mg intravenously over 15 minutes and started on IV amiodarone drip as per protocol. The patient was transferred to the ICU in stable condition. Dr. Wahl project production engineer will take out. Thank you end of procedure.
[2019-04-01] MEDS ORDERED: ASPIRIN 81 MG TABLET, ENT COATED PO SCH (10:00)
== END 2019-03-31 18:40 | disposition short-term general hospital (02) ==
LOC: ER 21:35 → EH 03-30 03:40 → 4W 03-30 11:51 → ICU 03-31 11:00
PROVIDERS: ADMIT Emergency Medicine; ATTEND Emergency Medicine
PROC: 3E033RZ Introduction of Antiarrhythmic into Peripheral Vein, Percutaneous Approach (ICD-10-PCS; principal; 2019-03-31)
DX: R00.0 Tachycardia, unspecified (principal); I25.700 Atherosclerosis of coronary artery bypass graft(s), unspecified, with unstable angina pectoris; R74.8 Abnormal levels of other serum enzymes; G93.41 Metabolic encephalopathy; I44.7 Left bundle-branch block, unspecified; I25.2 Old myocardial infarction; E78.5 Hyperlipidemia, unspecified; I13.0 Hypertensive heart and chronic kidney disease with heart failure and stage 1 through stage 4 chronic kidney disease, or unspecified chronic kidney disease; E11.22 Type 2 diabetes mellitus with diabetic chronic kidney disease; I50.9 Heart failure, unspecified; M10.9 Gout, unspecified; M19.90 Unspecified osteoarthritis, unspecified site; N18.4 Chronic kidney disease, stage 4 (severe); I42.9 Cardiomyopathy, unspecified; I35.0 Nonrheumatic aortic (valve) stenosis; I48.4 Atypical atrial flutter; R09.02 Hypoxemia; Z95.1 Presence of aortocoronary bypass graft; Z83.42 Family history of familial hypercholesterolemia; Z95.0 Presence of cardiac pacemaker; Z79.82 Long term (current) use of aspirin; Z79.52 Long term (current) use of systemic steroids
CPT/HCPCS: 93005 ×2; 99285; 36415 ×3; 84439; 82553 ×3; 82140; 82803; 82550 ×3; 80162; 83605 ×2; 83735; 84100; 84443 ×2; 85025; 85027; 85610; 85730; 87070; 80048; 80053; 81001; 84484 ×3; 84481; 83036; 80061; 93306; 71045 ×2; 74220; 93010 ×2; 94640; 96374; A9270 ×20; J2250; J1644 ×4; J1940; J3490 ×5; J7060; J0153 ×2; J0282; J0696; G0378